=== PATIENT | male | born 1955 | race Caucasian/White ===

== ENCOUNTER 2023-07-31 01:42 | Day surgery (SDC) | payer MEDICARE, SELFPAY ==
[2023-07-08 15:32] VITALS: BMI 24.2
--- NOTE | 2023-07-29 11:11 | PC.NURSE ---
Patient called regarding upcoming procedure. Reviewed preop instructions, appointment times, and procedure prep.
[2023-07-31 08:48] VITALS: BP 148/83; PULSE 80; RESP 16; TEMP 36.2; O2SAT 100; BMI 22.3
--- NOTE | 2023-07-31 09:00 | WPDANESEPPF ---
Anes - Initial Pre Proc Eval Procedure: Operation Date: 07/31/23 10:00 Proposed Procedures p Colonoscopy - Doe Lane MD Date/Time: 07/31/23 09:00 Surgeon: Doe Lane MD Pre Op Diagnosis: hx colon polyps Patient Data Age: 68 Gender: M Height: 1.73 m Weight: 66.6 kg Last Vital Signs Temp 36.2 C L 07/31/23 08:48 Pulse 80 07/31/23 08:48 Resp 16 07/31/23 08:48 BP 148/83 H 07/31/23 08:48 Pulse Ox 100 07/31/23 08:48 O2 Del Method Room Air 07/31/23 08:48 Allergies Allergy/AdvReac Type Severity Reaction Status Date / Time No Known Allergies Allergy Verified 07/31/23 08:56 Home Medications Medication Instructions Recorded Confirmed Type amlodipine 2.5 mg tablet 2.5 mg PO DAILY 06/19/23 07/31/23 History aspirin 81 mg tablet,delayed 81 mg PO DAILY 06/19/23 07/31/23 History release (Adult Aspirin Regimen) insulin aspart U-100 100 unit/mL 3 unit subcut .COMPLEX 06/19/23 07/31/23 History (3 mL) subcutaneous pen (Novolog FlexPen U-100 Insulin aspart) insulin glargine 100 unit/mL (3 See Rx Instructions subcut .COMPLEX 06/19/23 07/31/23 History mL) subcutaneous pen (Lantus Solostar U-100 Insulin) lisinopril 20 mg tablet 20 mg PO DAILY 06/19/23 07/31/23 History meloxicam 7.5 mg tablet 7.5 mg PO DAILY 06/19/23 07/31/23 History metformin 1,000 mg tablet 1,000 mg PO BID 06/19/23 07/31/23 History simvastatin 10 mg tablet 10 mg PO DAILY 06/19/23 07/31/23 History amlodipine 2.5 mg tablet 2.5 mg PO DAILY 07/08/23 07/31/23 History Patient hx anesthesia problems: none Family hx anesthesia problems: none Results Review: All pre-operative results and documents have been reviewed as part of the pre-operative evaluation. [facility] Past Medical History Medical History (Updated 07/31/23 @ 09:02 by Miki Kothari MD) Diabetes HTN (hypertension) Family History Family History Father Diabetes mellitus Hypertension Mother Cancer Thyroid condition Social History Social History Smoking status: Former smoker Tobacco type: cigarettes Smokeless tobacco user: chewing tobacco Second hand tobacco smoke exposure: No Alcohol intake: former Substance use: never Substance use type: does not use Do You Feel Safe in your Home?: Yes Lack of Transportation: No Lack of Food: Never True Current Housing: I Have Housing Concerned About Future Housing: No Difficulty Paying Gas/Electric Bills: No Difficulty Paying for Meds: YES Currently Unemployed: No Education: Associate Degree Difficulty w/ Childcare or Family Care: No Living arrangements: alone Spiritual care concerns: No Anes - Eval Final PreProcedure Day of Procedure 07/31/23 09:00 Patient weight: normal Heart: regular rate and rhythm Lungs: clear to auscultation Airway: Mallampati scale class II and special considerations poor dentition Neurological: alert and oriented Last oral intake: >/= 8 hours ASA classification: III Emergent: no Anesthetic plan: proceed Anesthesia type and monitoring: general GIVS and standard monitoring Results Review: All pre-operative results and documents have been reviewed as part of the pre-operative evaluation. Informed Consent: The patient's anesthetic plan and its attendant risks and benefits were discussed with the patient/family/POA. Questions were solicited and answers provided to the satisfaction of the patient/family/POA.
[2023-07-31] MEDS: LACTATED RINGERS 1,000 ML 150 ML IV CONT (09:11)
[2023-07-31 09:13] LABS: Glucose Point of Care 234 mg/dl (65-105)
--- NOTE | 2023-07-31 10:06 | PM.HPGS ---
History of Present Illness History of Present Illness Consent: Risks, benefits, and alternatives have been discussed and questions answered. Patient agrees to proceed with procedure. Chief complaint: hx colon polyps Narrative: Fabio Juares is a 68 year old male with colon polyp 3 years ago Review of Systems Constitutional: Constitutional: Denies headache(s) and Denies weakness Eyes: Eyes: Denies blurry vision ENT: Reports Normal hearing present, Denies headache(s) and Denies neck pain Cardiovascular: Cardiovascular: Denies chest pain and Denies dyspnea Respiratory: Respiratory: Denies dyspnea Gastrointestinal: Gastrointestinal: Reports no additional gastrointestinal complaints Genitourinary: Genitourinary: Denies dysuria Musculoskeletal: Musculoskeletal: Denies neck pain Integumentary/Breasts: Skin/Breast: Denies dry skin Neurologic: Reports Normal hearing present, Denies headache(s) and Denies weakness Psychiatric: Psychiatric: Denies anxiety Endocrine: Endocrine: Denies change in body appearance Hematologic/Lymphatic: Hematologic/Lymphatic: Denies easy bleeding Allergic/Immunologic: Allergic/Immunologic: Denies urticaria PMFSH Past Medical History Medical History (Updated 07/31/23 @ 09:02 by Miki Kothari MD) Diabetes HTN (hypertension) Family History Family History Father Diabetes mellitus Hypertension Mother Cancer Thyroid condition Social History Social History Smoking status: Former smoker Tobacco type: cigarettes Smokeless tobacco user: chewing tobacco Second hand tobacco smoke exposure: No Alcohol intake: former Substance use: never Substance use type: does not use Do You Feel Safe in your Home?: Yes Lack of Transportation: No Lack of Food: Never True Current Housing: I Have Housing Concerned About Future Housing: No Difficulty Paying Gas/Electric Bills: No Difficulty Paying for Meds: YES Currently Unemployed: No Education: Associate Degree Difficulty w/ Childcare or Family Care: No Living arrangements: alone Spiritual care concerns: No Meds Home Medications and Allergies Home Medications Medication Instructions Recorded Confirmed Type amlodipine 2.5 mg tablet 2.5 mg PO DAILY 06/19/23 07/31/23 History aspirin 81 mg tablet,delayed 81 mg PO DAILY 06/19/23 07/31/23 History release (Adult Aspirin Regimen) insulin aspart U-100 100 unit/mL 3 unit subcut .COMPLEX 06/19/23 07/31/23 History (3 mL) subcutaneous pen (Novolog FlexPen U-100 Insulin aspart) insulin glargine 100 unit/mL (3 See Rx Instructions subcut .COMPLEX 06/19/23 07/31/23 History mL) subcutaneous pen (Lantus Solostar U-100 Insulin) lisinopril 20 mg tablet 20 mg PO DAILY 06/19/23 07/31/23 History meloxicam 7.5 mg tablet 7.5 mg PO DAILY 06/19/23 07/31/23 History metformin 1,000 mg tablet 1,000 mg PO BID 06/19/23 07/31/23 History simvastatin 10 mg tablet 10 mg PO DAILY 06/19/23 07/31/23 History amlodipine 2.5 mg tablet 2.5 mg PO DAILY 07/08/23 07/31/23 History Allergies Allergy/AdvReac Type Severity Reaction Status Date / Time No Known Allergies Allergy Verified 07/31/23 08:56 Vital Signs Vital Signs - 24 hr 07/31/23 08:48 Temperature 97.1 F L Pulse Rate 80 Respiratory Rate 16 Blood Pressure 148/83 H Pulse Oximetry 100 Oxygen Delivery Room Air Exam Const: General: comfortable and no acute distress HENMT: Face/Nose/Sinus: Normal nares present Eyes: General: appearance normal, both eyes and all related structures Neck: Neck: no JVD Resp: Auscultation: clear to auscultation bilaterally Cardio: Rate: regular rate Rhythm: regular rhythm GI: Inspection: non-distended GI Palp: Yes Soft to palpation Skin: General skin exam: normal color Neuro: General: gait normal Speech: normal speech Extrem: General: marcela
[2023-07-31 10:24] VITALS: BP 132/78; PULSE 72; RESP 18; O2SAT 100
[2023-07-31 10:34] VITALS: BP 123/77; PULSE 73; RESP 15; O2SAT 98
[2023-07-31 10:44] VITALS: BP 134/77; PULSE 72; RESP 18; O2SAT 97
[2023-07-31 10:54] LABS: Glucose Point of Care 222 mg/dl (65-105)
== END 2023-07-31 11:00 | disposition home or self-care (01) ==
PROVIDERS: PCP Emergency Medicine; Visit Provider Internal Medicine Gastroenterology
PROC: 0DJD8ZZ Inspection of Lower Intestinal Tract, Via Natural or Artificial Opening Endoscopic (ICD-10-PCS; CPT 45378; principal; 2023-07-31 10:00)
DX: Z12.11 Encounter for screening for malignant neoplasm of colon (principal); D12.3 Benign neoplasm of transverse colon; E11.9 Type 2 diabetes mellitus without complications; I10 Essential (primary) hypertension; Z87.891 Personal history of nicotine dependence
CPT/HCPCS: 45385; 82948; 88305; J2704; J7120

== ENCOUNTER 2023-08-01 08:45 | Outpatient (CLI) | payer MEDICARE, SELFPAY ==
[2023-08-01 12:39] LABS: Alanine Aminotransferase 130 U/L (6-50); Alkaline Phosphatase 83 U/L (38-126); Anion Gap 8 mmol/L (8-16); Aspartate Amino Transferase 92 U/L (17-59); Bilirubin,Total 0.4 mg/dL (0.2-1.3); Blood Urea Nitrogen 7 mg/dL (9-20); Calcium 9.2 mg/dL (8.4-10.2); Carbon Dioxide 30 mmol/L (22-30); Chloride 97 mmol/L (98-107); Cholesterol 119 mg/dL (0-200); Estimated Glomerular Filt Rate > 60; Glucose 296 mg/dL (65-110); HDL Direct 38 mg/dL; Potassium 4.5 mmol/L (3.4-5.0); Sodium 135 mmol/L (137-145); Triglycerides 142 mg/dL (<150)
[2023-08-01 12:52] LABS: LDL Cholesterol Direct 71 mg/dL
[2023-08-01 13:08] LABS: Prostate Specific Antigen 0.5 ng/mL (< OR = 4.0)
[2023-08-01 13:22] LABS: Creatinine Urine 25.4 mg/dL
[2023-08-01 13:23] LABS: Hemoglobin A1C 10.5 % (<5.7)
[2023-08-01 14:09] LABS: MALB Creatinine Ratio 778.7 mg/g (0-30); Microalbumin Urine Random 197.8 mg/L (0-16.7)
== END 2023-08-01 08:46 | disposition home or self-care (01) ==
LOC: ANHGOSHLAB 08:46
PROVIDERS: PCP Emergency Medicine; Visit Provider Emergency Medicine
DX: E11.40 Type 2 diabetes mellitus with diabetic neuropathy, unspecified (principal); Z79.4 Long term (current) use of insulin; Z12.5 Encounter for screening for malignant neoplasm of prostate
CPT/HCPCS: 36415; 80053; 80061; 82043; 83036; 84153; G0103

== ENCOUNTER 2023-10-31 09:15 | Outpatient (RCR) | payer MEDICARE, SELFPAY | END 2023-11-19 14:10 | disposition home or self-care (01) | LOC: ANHDMC 09:15 | PROVIDERS: PCP Emergency Medicine; Visit Provider Emergency Medicine | DX: E11.40 Type 2 diabetes mellitus with diabetic neuropathy, unspecified (principal); Z79.4 Long term (current) use of insulin; Z71.89 Other specified counseling | CPT/HCPCS: G0108 ==

== ENCOUNTER 2023-10-31 10:50 | Outpatient (CLI) | payer MEDICARE, SELFPAY ==
[2023-10-31 13:55] LABS: Alanine Aminotransferase 113 U/L (6-50); Albumin Level 4.3 g/dL (3.5-5.1); Alkaline Phosphatase 65 U/L (38-126); Anion Gap 7 mmol/L (4-12); Aspartate Amino Transferase 75 U/L (17-59); Bilirubin,Total 0.4 mg/dL (0.2-1.3); Blood Urea Nitrogen 13 mg/dL (9-20); Calcium 9.3 mg/dL (8.4-10.2); Carbon Dioxide 29 mmol/L (22-30); Chloride 100 mmol/L (98-107); Estimated Glomerular Filt Rate > 60; Glucose 168 mg/dL (65-110); Potassium 4.2 mmol/L (3.4-5.0); Sodium 136 mmol/L (137-145)
[2023-10-31 21:13] LABS: Hemoglobin A1C 7.9 % (<5.7)
== END 2023-10-31 10:51 | disposition home or self-care (01) ==
PROVIDERS: PCP Emergency Medicine; Visit Provider Emergency Medicine
DX: E11.40 Type 2 diabetes mellitus with diabetic neuropathy, unspecified (principal); Z79.4 Long term (current) use of insulin; Z79.899 Other long term (current) drug therapy
CPT/HCPCS: 36415; 80053; 82607; 83036

== ENCOUNTER 2023-12-10 09:54 | Outpatient (RCR) | payer MEDICARE, SELFPAY | END 2024-03-02 10:21 | disposition home or self-care (01) | LOC: ANHDMC 09:54 | PROVIDERS: PCP Emergency Medicine; Visit Provider Emergency Medicine | DX: E11.40 Type 2 diabetes mellitus with diabetic neuropathy, unspecified (principal); Z79.4 Long term (current) use of insulin; Z71.89 Other specified counseling | CPT/HCPCS: G0108 ==

== ENCOUNTER 2024-03-30 09:26 | Outpatient (CLI) | payer MEDICARE, SELFPAY ==
[2024-03-30 15:30] LABS: Hemoglobin A1C 10.5 % (<5.7)
[2024-03-30 15:31] LABS: Hepatitis C Virus Antibody Negative (Negative)
[2024-04-01 02:18] LABS: Hepatitis A Antibody Total NON-REACTIVE (NON-REACTIVE)
== END 2024-03-30 09:27 | disposition home or self-care (01) ==
PROVIDERS: PCP Emergency Medicine; Visit Provider Nurse Practitioner Family
DX: E11.21 Type 2 diabetes mellitus with diabetic nephropathy (principal); Z79.4 Long term (current) use of insulin; R74.8 Abnormal levels of other serum enzymes; Z86.19 Personal history of other infectious and parasitic diseases
CPT/HCPCS: 36415; 83036; 86708; 86803

== ENCOUNTER 2024-03-30 09:36 | Outpatient (CLI) | payer MEDICARE, SELFPAY ==
--- NOTE | ~2024-03-30 | XR_ITS ---
Left Shoulder Technique: AP and scapular Y views were obtained. Clinical History: Pain Findings: No fracture or dislocation is seen. Osseous alignment is anatomic. The glenohumeral joint i s intact. There is mild AC joint degenerative change. Soft tissues are unremarkable. Impression: Mild AC joint degenerative change. Reviewed, dictated and finalized at location . Impression: Mild AC joint degenerative change.
== END 2024-03-30 09:37 | disposition home or self-care (01) ==
PROVIDERS: PCP Emergency Medicine; Visit Provider Nurse Practitioner Family
DX: M19.012 Primary osteoarthritis, left shoulder (principal)
CPT/HCPCS: 73030

== ENCOUNTER 2024-06-10 10:10 | Outpatient (CLI) | payer MEDICARE, SELFPAY ==
[2024-06-10 12:40] LABS: Basophils Absolute Auto 0.1 K/mm3 (0.0-0.1); Basophils Percent Auto 0.8 % (0.2-1.2); Eosinophils Absolute Auto 0.1 K/mm3 (0-0.3); Hematocrit 42.8 % (42.0-52.0); Hemoglobin 13.9 g/dL (14.0-18.0); Immature Granulocyte Absolute 0.07 K/mm3 (0.00-0.031); Immature Granulocyte Percent A 0.9 % (0-0.5); Lymphocytes Absolute Auto 1.52 K/mm3 (0.9-3.2); Lymphocytes Percent Auto 19.6 % (18.3-44.2); Mean Corpuscular HGB Conc 32.5 g/dl (32-36); Mean Corpuscular Volume 83.3 fl (80-100); Mean Platelet Volume 10.8 fl (7.4-10.4); Monocytes Absolute Auto 0.5 K/mm3 (0.1-0.6); Neutrophils Absolute Auto 5.5 K/mm3 (1.3-6.7); Neutrophils Percent Auto 70.7 % (45.5-73.1); Platelet Count Result 234 k/mm3 (150-375); Red Blood Count 5.14 M/mm3 (4.6-6.20); Red Cell Distribution Width 13.3 % (11.5-14.5); White Blood Count 7.7 K/mm3 (4.5-10.0)
[2024-06-10 13:20] LABS: Alanine Aminotransferase 227 U/L (6-50); Albumin Level 4.2 g/dL (3.5-5.1); Alkaline Phosphatase 82 U/L (38-126); Anion Gap 8 mmol/L (4-12); Aspartate Amino Transferase 191 U/L (17-59); Bilirubin,Total 0.6 mg/dL (0.2-1.3); Blood Urea Nitrogen 10 mg/dL (9-20); Calcium 9.6 mg/dL (8.4-10.2); Carbon Dioxide 30 mmol/L (22-30); Chloride 99 mmol/L (98-107); Cholesterol 123 mg/dL (0-200); Estimated Glomerular Filt Rate > 60; Glucose 155 mg/dL (65-110); HDL Direct 42 mg/dL; Potassium 5.1 mmol/L (3.4-5.0); Sodium 137 mmol/L (137-145); Triglycerides 109 mg/dL (<150)
[2024-06-10 13:32] LABS: LDL Cholesterol Direct 54 mg/dL
== END 2024-06-10 10:11 | disposition home or self-care (01) ==
LOC: ANHGOSHLAB 10:11
PROVIDERS: PCP Emergency Medicine; Visit Provider Nurse Practitioner Family
DX: R74.8 Abnormal levels of other serum enzymes (principal); E11.9 Type 2 diabetes mellitus without complications; I10 Essential (primary) hypertension
CPT/HCPCS: 36415; 80053; 80061; 85025

== ENCOUNTER 2024-09-07 10:23 | Outpatient (CLI) | payer MEDICARE, SELFPAY ==
--- OUTSIDE RECORDS SUMMARY | 2024-09-07 11:52 | XMS_ITS ---
Author Organization 1 OF Nettie perera [facility] Address [address] [place] [address] Care Team Providers Care Traffic Warehouse Supervisor Name Role Phone Damian Tilley Primary Care Provider Cindy Quinteros Unavailable [phone] REASON FOR VISIT DFC (Diabetic foot care) Encounters Encounter Location Date Provider Diagnosis 1 OF Nettie Baker [facility] [address] [place] [address] 07/08/2023 Cindy Barrera Callus of foot L84 ; Type 2 diabetes mellitus with other diabetic neurological complication E11.49 and Onychogryphosis L60.2 Assessments Encounter Date Diagnosis (ICD Code) Assessment Notes Treatment Notes Treatment Clinical Notes Section Notes 07/08/2023 Callus of foot (ICD-10 - L84) 07/08/2023 Type 2 diabetes mellitus with other diabetic neurological complication (ICD-10 - E11.49) Considering the associated comorbidities and physical exam findings today, this patient is at substantial risk of developing serious foot complications in the absence of regular and professional palliative foot care. He was advised to routinely moisturize the skin. 07/08/2023 Onychogryphosis (ICD-10 - L60.2) Plan Of Treatment Treatment Notes Assessment Notes Type 2 diabetes mellitus wit h other diabetic neurological complication Considering the associated comorbidities and physical exam findings today, this patient is at substantial risk of developing serious foot complications in the absence of regular and professional palliative foot care. He was advised to routinely moisturize the skin. Next Appt Details Follow Up: 10 weeks,prn, [place] son: Procedure Notes * Category Sub-Category Detail Notes PALLIATIVE FOOT CARE: Callus paring: (08133) Le ss than five calluses as noted above reduced with a sterile scalpel blade Nail debride (17674): Debridement of at least six mycotic and/or hypertrophic nails performed:, utilizing manual and electric debridement the affected nails were reduced the nails in length and thickness with curettage of debris from nail margins performed as needed. Nail thickness reduced by:, 25% Progress Notes * Fabio JUARES RDOB: 4 (69 yo M)Acc No.[id number]:07/08/2023 Progress Note Patient: Fabio BURGOS Provider: Darwin Barrera DPM :1955 A ge:68 Y S ex:Male Date:07/08/2023 Address:[address] [place] [address], [address] Pcp:Damian Tilley Subjective: * Chief Complaints: * 1 . DFC (Diabetic foot care). * HPI: Kalie Birmingham assisting with visit:: HPI/Rooming: . ..... P [facility] reason for visit:: Diabetic Foot Care: [age] year old diabetic male RTO for diabetic foot care. P atient reports no acute issues with calluses today. R eport last hA1C of . * Medical History: Objective: * Vitals: * Examination: G eneral Examination: Constitutional / Appearance: N o acute distress , Well nourished, Appropriate personal hygiene. Mental status: C ooperative, Oriented to person, place and time, Mood and affect: normal, Judgement and intellect: normal with appropriate response to questions. Shoes today: X XXXXX. L ower Extremity VASCULAR: : Pulses: R ight: DP and PT diminished; L eft: DP and PT non-palpable. Temperature gradient: decreased from proximal to distal, bilateral. Pedal hair: a bsent, bilateral. Venous insufficiency edema: mild, bilateral feet. Capillary refill at distal toes l ess than 5 seconds, bilateral. L ower Extremity DERM: : Skin: d ry , atrophic , no open sores , no suspicious lesions , bilateral. Continued dry scaly skin noted to the plantar aspects of both feet.. Nails: N ail plates of: TA-T9, except T5, T6 are elongated, thickened, dystrophic , discolored , with subungual debris.No signs of infection noted.. Hyperkeratotic lesions LEFT foot: s ub 5th MTH. Hyperkeratotic lesions RIGHT foot: p lantar medial 1st MPJ. L ower Extremity MSK: : Gait Gait unremarkable with normal posture, propulsion and balance. Muscle strength: d iminished , all 4 quadrants tested , bilateral. Left lower extremity inspection and palpation: N o palpable masses or nodules noted. Slightly decreased ROM noted to the MPJ's.. Right lower extremity inspection and palpation: N o palpable masses or nodules noted. Slightly decreased ROM noted to the MPJ's. Foot deformities: B ilateral:hammertoes, 4-5. L ower Extremity NEURO: : General sensation appears d iminished , bilateral. Muscle tone within normal limits, bilateral. Monofilament test (10 gram pressure) E xam of 07/05/2023:.? Vibration perception: E xam of 07/08/2023:. ? Assessment: * Assessment: 1. C allus of foot - L84 2 . T ype 2 diabetes mellitus with other diabetic neurological complication - E11.49 (Primary) 3 . O nychogryphosis - L60.2 ? Plan: * Treatment: * Procedures: P ALLIATIVE FOOT CARE:: Callus paring: ( [id number]) Less than five calluses as noted above reduced with a sterile scalpel blade. Nail debride (40797): D ebridement of at least six mycotic and/or hypertrophic nails performed:, utilizing manual and electric debridement the affected nails were reduced the nails in length and thickness with curettage of debris from nail margins performed as needed. Nail thickness reduced by:, 25%. * Procedure Codes: 1 1056 TRIM SKIN LESIONS, 2 TO 4, Modifiers: Q8 , 04316 DEBRIDE NAIL, 6 OR MORE, Modifiers: Q8 , 59 * Follow Up: 1 0 weeks,prn * Images: * Electronic signature of Rona Barrera DPM on 09/07/2024 at 11:52 AM CDT Sign off status: Pending * Provider: Darwin Barrera DPM Date: 0 07/08/2023 Generated for Jose woody/Rakesh/Carolee on: 0 09/07/2024 11:52 AM CDT History and Physical Notes * HPI (History of Present Illness) Category Sub-Category Detail Notes Category Not es Primary reason for visit: Diabetic Foot Care: 68 year old diabetic male RTO for diabetic foot care. Patient reports no acute issues with calluses today. Report last hA1C of MA assisting with visit: HPI/Rooming: ..... Examination Category Sub-Category Detail Notes Category Not es General Examination Mental status: Cooperative, Oriented to person, place and time, Mood and affect: normal, Judgement and intellect: normal with appropriate response to questions Shoes today: XXXXXX Constitutional / Appearance: No acute di stress , Well nourished, Appropriate personal hygiene Lower Extremity VASCULAR: Venous insufficiency edema: mild, bilateral feet Pulses: Right: DP and PT dim inished; Left: DP and PT non-palpable Temperature gradient: decreased from pro ximal to distal, bilateral Pedal hair: absent, bilateral Capillary refill at distal toes less juanjo n 5 seconds, bilateral Lower Extremity NEURO: Monofilament test (10 gra m pressure) Exam of 07/05/2023: Vibration perception: Exam of 07/08/2023 : General sensation appears diminished , b ilateral Muscle tone within normal limits , bilateral Lower Extremity MSK: Muscle strength: diminished , all 4 quadrants tested , bilateral Foot deformities: Bilateral: hammertoe s, 4-5 Left lower extremity inspect ion and palpation: No palpable masses or nodules noted. Sli ghtly decreased ROM noted to the MPJ's. Right lower extremity inspec tion and palpation: No palpable masses or nodules noted. Sli ghtly decreased ROM noted to the MPJ's Gait Gait unremarkable wi th normal posture, propulsion and balance Lower Extremity DERM: Skin: dry , atro phic , no open sores , no suspicious lesions , bilateral. Continued dry scaly skin noted to the plantar aspects of both feet. Nails: Nail plates of: TA-T 9, except T5, T6 are elongated, thickened, dystrophic , discolored , with subungual debris.No signs of infection noted. Hyperkeratotic lesions LEFT foot: sub 5t h MTH Hyperkeratotic lesions RIGHT foot: plant ar medial 1st MPJ
--- OUTSIDE RECORDS SUMMARY | 2024-09-07 11:52 | XMS_ITS ---
Author Organization 1 OF Nettie perera [facility] Address [address] [facility] [address] [place] [address] Care Team Providers Care Tool Crib Lead Name Role Phone Damian Tilley Primary Care Provider Cindy Quinteros Unavailable [phone] Allergies No Known Allergies REASON FOR VISIT DFC (Diabetic foot care) Medications Medication SIG (Take, Route, Fr equency, Duration) Notes Start Date End Date Status Simvastatin Active Lisinopril Active metFORMIN HCl Active amLODIPine Besylate Active Ketoconazole 2 % 1 application to aff ected area on bottom of feet Topical Once a day for 60 days 09/24/2022 Active Aspirin Active Vital Signs Height 68 in 04/29/2023 Weight 157 lbs 04/29/2023 BMI 23.87 kg/m2 04/29/2023 Encounters Encounter Location Date Provider Diagnosis 1 OF Nettie Baker [facility] [address] [facility] [address] [place] [address] 04/29/2023 Cindy Barrera Callus of foot L84 ; Type 2 diabetes mellitus with other diabetic neurological complication E11.49 and Onychogryphosis L60.2 Assessments Encounter Date Diagnosis (ICD Code) Assessment Notes Treatment Notes Treatment Clinical Notes Section Notes 04/29/2023 Callus of foot (ICD-10 - L84) 04/29/2023 Type 2 diabetes mellitus with other diabetic neurological complication (ICD-10 - E11.49) Considering the associated comorbidities and physical exam findings today, this patient is at substantial risk of developing serious foot complications in the absence of regular and professional palliative foot care. He was advised to routinely moisturize the skin. 04/29/2023 Onychogryphosis (ICD-10 - L60.2) Plan Of Treatment [...] Next Appt Details Follow Up: 10 weeks,prn, [place] son: Procedure Notes * Category Sub-Category Detail Notes PALLIATIVE FOOT CARE: Callus paring: (91175) Le ss than five calluses as noted above reduced with a sterile scalpel blade Nail debride (26255): Debridement of at least six mycotic and/or hypertrophic nails performed:, utilizing manual and electric debridement the affected nails were reduced the nails in length and thickness with curettage of debris from nail margins performed as needed. Nail thickness reduced by:, 25% Progress Notes * Fabio JUARES RDOB: 4 (68 yo M)Acc No.[id number]:04/29/2023 Progress Note Patient: Kalie CORONANATASHAFabio Provider: Darwin Barrera DPM :1955 A ge:67 Y S ex:Male Date:04/29/2023 Address:[address] [place], [place] [id number] Pcp:Damian Tilley Subjective: * Chief Complaints: * D FC (Diabetic foot care) * HPI: Kalie Birmingham assisting with visit:: HPI/Rooming: Vanessa alfred. Cristy ochoa reason for visit:: Diabetic Foot Care: 5 8 year old diabetic male RTO for diabetic foot care. P atient reports no acute issues with calluses today, but he does reports that the first 3 nails on the RT foot were partially ripped off by his new house shoes that he has since stopped wearing, he does admit that the nails bled initially. He denies any drainage from them now and states they are healed. R eport last hA1C of unknown. 2 nd concern today:: Follow up Visit P t also RTO for f/u of B/L tinea pedis. At last visit pt advised to continue using antifungal cream and can also use moisturizing cream on skin and alternate it with antifungal cream. Today pt reports after awhile, he doesn't think the cream did any good.He states he has been dealing with this issue for many, many years.. * ROS: * MULTI-SYSTEM REVIEW:: Nausea, fever or chillls d enies. C urrently dealing with infection, flu or open wound: d enies. A ny change in medications since last visit? d enies. A ny changes in medical history/hospitalizations? d enies. * Medical History: * Surgical History: C ataract surgery B/L 01/2023 * Hospitalization/Major Diagno stic Procedure: * Medications: T akingLisinopril Simvastatin amLODIPine Besylate metFORMIN HCl Aspirin Ketoconazole 2 % Cream 1 application to affected area on bottom of feet Topical Once a day Medication List reviewed and reconciled with the patientTaking Lisinopril Taking Simvastatin Taking amLODIPine Besylate Taking metFORMIN HCl Taking Aspirin Taking Ketoconazole 2 % Cream 1 application to affected area on bottom of feet Topical Once a day Medication List reviewed and reconciled with the patient * Allergies: N .K.D.A.no[Allergies Verified] Objective: * Vitals: W t:157lbs, Wt-k.21 kg, Ht: 68 in, BMI:23.87Index. * Examination: G eneral Examination: Constitutional / Appearance: N o acute distress , Well nourished, Appropriate personal hygiene. Mental status: C ooperative, Oriented to person, place and time, Mood and affect: normal, Judgement and intellect: normal with appropriate response to questions. Shoes today: D iabetic shoes w/ diabetic inserts. ? L ower Extremity VASCULAR: : Pulses: R [...] test (10 gram pressure) E xam of 09/24/2022:?revealed absent sensation to at least two distinct locations of , forefoot , bilateral. Vibration perception: E xam of 09/24/2022: n oted intact per evaluation with 128Hz tuning fork applied to distal hallux compared to ipsilateral medial malleolus @ bilateral feet . Assessment: * Assessment: 1. C allus of foot - L84 2 . T ype 2 diabetes mellitus with other diabetic neurological complication - E11.49 (Primary) 3 . O nychogryphosis - L60.2 Plan: * Treatment: * Procedures: P ALLIATIVE FOOT CARE:: Callus paring: ( 20363) Less than five calluses as noted above reduced with a sterile scalpel blade. Nail debride (62570): D ebridement of at least six mycotic and/or hypertrophic nails performed:, utilizing manual and electric debridement the affected nails were reduced the nails in length and thickness with curettage of debris from nail margins performed as needed. Nail thickness reduced by:, 25%. * Procedure Codes: 1 1056 TRIM SKIN LESIONS, 2 TO 4, Modifiers: Q8 34516 DEBRIDE NAIL, 6 OR MORE, Modifiers: Q8 , 59 * Preventive Medicine: Screenings: F ALL RISK SCREENING Fall Risk Assessment: N o falls in the past year * Follow Up: 1 0 weeks,prn * Images: * INE VENEER REPAIRER Sign off status: Completed true * Provider: Darwin Barrera DPM Date: 06/29/2022 Generated for Jose woody/Rakesh/Sorenitting on: 0 09/07/2024 11:52 AM CDT History and Physical Notes * HPI (History of Present Illness) Category Sub-Category Detail Notes Category Not es Primary reason for visit: Diabetic Foot Care: 67 year old diabetic male RT O for diabetic foot care. Patient reports no acute issues with calluses today, but he does reports that the first 3 nails on the RT foot were partially ripped off by his new house shoes that he has since stopped wearing, he does admit that the nails bled initially. He denies any drainage from them now and states they are healed.Report last hA1C of unknown 2nd concern today: Follow up Visit Pt also RTO f or f/u of B/L tinea pedis. At last visit pt advised to continue using antifungal cream and can also use moisturizing cream on skin and alternate it with antifungal cream. Today pt reports after awhile, he doesn't think the cream did any good.He states he has been dealing with this issue for many, many years. MA assisting with visit: HPI/Rooming: Thu Examination Category Sub-Category Detail Notes Category Not es General Examination Mental status: Cooperative, Oriented to person, place and time, Mood and affect: normal, Judgement and intellect: normal with appropriate response to questions Shoes today: Diabetic shoes w/ di abetic inserts Constitutional / Appearance: No acute di stress [...] bilateral Lower Extremity NEURO: Monofilament test (10 gram pressure) Exam of 09/24/2022: revealed absent sensation to at least two distinct locations of , forefoot , bilateral Vibration perception: Exam of 09/24/2022: noted intact per evaluation with 128Hz tuning fork applied to distal hallux compared to ipsilateral medial malleolus @ bilateral feet General sensation appears diminished , b ilateral [...]
--- OUTSIDE RECORDS SUMMARY | 2024-09-07 11:52 | XMS_ITS | Patient Health Record ---
Author Organization 1 OF Nettie perera [facility] Address [address] [place] [address] Care Team Providers Care Architect Internship Name Role Phone Damian Tilley Primary Care Provider Cindy Quinteros Unavailable [phone] Allergies No Known Allergies Reason For Referral No Information Medications Medication SIG (Take, Route, Fr equency, Duration) Notes Start Date End Date Status Simvastatin Active Lisinopril Active metFORMIN HCl Active amLODIPine Besylate Active Ketoconazole 2 % 1 application to aff ected area on bottom of feet Topical Once a day for 60 days 09/24/2022 Active Aspirin Active Social History Tobacco Use: Social History Observation Description Date Details (start date - stop date) Never Smoker NA - NA Tobacco Use/Smoking Question Answer Notes Are you a nonsmoker Problems Problem Type SNOMED Code ICD Code Onset Dates Problem Status W/U Status Risk Notes Problem [id number] Type 2 diabetes mellitus with other diabetic neurological complication (E11.49) Active confirmed Plan Of Treatment No Information Insurance Providers Payer Name Payer Address Payer Phone Subscriber Number Group Number Insured Name Patient Relationship to Insured Coverage Start Date Coverage End Date Medicare [address] [facility] [place] [id number] Fabio Juares Self - patient is the insured Medical (General) History Medical History History ICD Code diabetes, , Hypertension, high cholester ol, cataracts Surgical History Surgery Date(Month/Year) Cataract surgery B/L 01/2023
--- OUTSIDE RECORDS SUMMARY | 2024-09-07 11:52 | XMS_ITS | Clinical Summary ---
Author Organization [facility] Address [address] [place] [address] Care Team Providers Care Track Greaser Name Role Phone Alcides Ramirez MD Primary Care Provider [phone] Allergies No known active allergies Medications traMADol (ULTRAM) 50 MG tabletIndication s:Acute Pain < 3 Day Supply Take 1 tablet (50 mg total) by mouth every 6 (six) hours as needed. Indications : Acute Pain < 3 Day Supply 12 tablet 01/19/2022 Active Social History Tobacco Use Types Packs/Day Years Used Date Smoking Tobacco: Never Smokeless Tobacco: Current Alcohol Use Standard Drinks/Week Comments Yes 0 (1 standard drink = 0.6 oz pur e alcohol) socially Sex and Gender Information Value Date Recorded Sex Assigned at Not on file Legal Sex Male 7:26 PM CDT Gender Identity Not on file Sexual Orientation Not on file Last Filed Vital Signs Vital Sign Reading Time Taken Comments Blood Pressure 150/74 01/19/2022 5:11 PM CDT Pulse 80 01/19/2022 5:11 PM CDT Temperature 36.4 C (97.6 F) 01/19/2022 12:35 PM CDT Respiratory Rate 16 01/19/2022 5:11 PM CDT Oxygen Saturation 98% 01/19/2022 5:11 PM CDT Inhaled Oxygen Concentration - - Weight 74.8 kg (165 lb) 01/19/2022 12:35 PM CDT Height 172.7 cm (5' 8 ) 01/19/2022 12:35 PM CDT Body Mass Index 25.09 01/19/2022 12:35 PM CDT Plan of Treatment Health Maintenance Due Date Last Done Comments Colorectal Cancer Screening Colonoscopy (10 Years) 1954 Hepatitis C 1972 DTaP, Tdap and Td Vaccines ( 1 - Tdap) 1973 Zoster Vaccines (1 of 2) 2004 Annual Medicare Wellness Visit 2019 Pneumococcal Vaccine: 65+ Years (1 of 1 - PCV) 2019 COVID-19 Vaccine (3 - 2023-2 5 season) 2024 09/16/2020, 08/19/2020 RSV Immunization or 60+ Years (1 - 1-dose 75+ series) 2029 Meningococcal B Vaccine Aged Out No l onger eligible based on patient's age to complete this topic Meningococcal Vaccine Aged Out No kiera ivis eligible based on patient's age to complete this topic RSV Immunizations Under 20 Months Aged Out No longer eligible b ased on patient's age to complete this topic Additional Health Concerns Infection Onset Date Last 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
--- OUTSIDE RECORDS SUMMARY | 2024-09-07 11:52 | XMS_ITS | Referral Summary ---
Author Organization [facility] Address [address] [place] [address] Care Team Providers Care Graphic Design Assistant Name Role Phone No, Physician Primary Care Provider [phone] Miscellaneous, Not In File Unavailable Unava ilable Allergies No known active allergies Medications metFORMIN (GLUCOPHAGE) 1,000 mg tablet Take 1 tablet (1,000 mg total) by mouth 2 (two) times a day with meals Active amLODIPine (NORVASC) 2.5 mg tablet Take 1 tablet (2.5 mg total) by mouth daily 05/14/2022 Active lisinopriL (PRINIVIL,ZESTR IL) 10 mg tablet Take 1 tablet (10 mg total) by mouth daily 05/14/2022 Active simvastatin (ZOCOR) 10 mg tablet Take 1 tablet (10 mg total) by mouth daily 05/14/2022 Active insulin glargine 100 unit/mL (3 mL) pen for injection Inject 30 Units under the skin 2 (two) times a day 18 mL 07/09/2022 Active pen needle, diabetic 32 gauge x 5/32 needle Use as directed twice a day 100 each 07/09/2022 Active lancets misc Use as directed up to 4 times a day. 100 each 1 07/09/2022 Active Active Problems Problem Noted Date Diagnosed Date Type 2 diabetes mellitus wit h hyperglycemia, with long-term current use of insulin 07/09/2022 Essential hypertension 07/09/2022 Transient alteration of awareness 07/09/2022 Generalized weakness Social History Tobacco Use Types Packs/Day Years Used Date Smoking Tobacco: Never Tobacco Cessation:Counseling Given: Not Answered Alcohol Use Standard Drinks/Week Comments Yes 0 (1 standard drink = 0.6 oz pur e alcohol) socially Social Connection and Isolat ion Panel [NHANES] Answer Date Recorded In a typical week, how many times do you talk on the phone with family, friends, or neighbors? More than three times a week 07/09/2022 How often do you get togethe r with friends or relatives? More than three times a week 07/09/2022 How often do you attend chur ch or lutheran services? Never 07/09/2022 Do you belong to any clubs o r organizations such as islam groups, unions, fraternal or athletic groups, or school groups? No 07/09/2022 How often do you attend meet ings of the clubs or organizations you belong to? Never 07/09/2022 Are you , , di vorced, , never , or living with a partner? Never 07/09/2022 Overall Financial Resource Strain (CARDIA) Answe r Date Recorded How hard is it for you to pa y for the very basics like food, housing, medical care, and heating? Not hard at all 07/09/2022 Hunger Vital Sign Answer Date Recorded Within the past 12 months, y ou worried that your food would run out before you got the money to buy more. Never true 07/09/19 23 Within the past 12 months, t he food you bought just didn't last and you didn't have money to get more. Never true 07/09/2022 PRAPARE - Transportation Answer Date Re corded In the past 12 months, has l ack of transportation kept you from medical appointments or from getting medications? No 11/2022 In the past 12 months, has l ack of transportation kept you from meetings, work, or from getting things needed for daily living? No 07/09/2022 Housing Stability Vital Sign Answer Dhruv e Recorded In the last 12 months, was t here a time when you were not able to pay the mortgage or rent on time? No 07/09/2022 Number of Places Lived in the Last Year Not on f ile 07/09/2022 In the last 12 months, was t here a time when you did not have a steady place to sleep or slept in a mcfp (including now)? No 07/09/2022 Sex and Gender Information Value Date Recorded Sex Assigned at Not on file Legal Sex Male 5:00 PM RADAR SCIENTIST Gender Identity Not on file Sexual Orientation Not on file Last Filed Vital Signs Vital Sign Reading Time Taken Comments Blood Pressure 100/60 03/14/2023 3:23 PM CDT Pulse 106 08/23/2022 1:01 PM CDT Temperature 36.2 C (97.1 F) 08/23/2022 1:01 PM CDT Respiratory Rate 18 08/23/2022 1:01 PM CDT Oxygen Saturation 99% 08/23/2022 1:01 PM CDT Inhaled Oxygen Concentration - - Weight 74.8 kg (165 lb) 03/14/2023 3:23 PM CDT Height 172.7 cm (5' 8 ) 03/14/2023 3:23 PM CDT Body Mass Index 25.09 03/14/2023 3:23 PM CDT Plan of Treatment Not on file Procedures Procedure Name Priority Date/Time Associated Diagnosis Comments EGFR Routine 07/09/2022 4:45 AM RADAR SCIENTIST HEMOGLOBIN A1C Routine 07/09/2022 4:45 AM RADAR SCIENTIST LIPID PANEL Routine 07/09/2022 4:[address] ABDOMEN PELVIS WO CONTRAST ED 07/08/2022 2:26 AM RADAR SCIENTIST from Last 3 Months or Most Recently Relevant to Health Maintenance Results * eGFR (07/09/2022 4:45 AM RADAR SCIENTIST) eGFR 100 mL/min/1. 73 m2 LIZZY HERRERA Comment: Interpretive Data Reference Interval Normal >/= 90 mL/min/1.73m2 Mildly decreased* 60 - 89 mL/min/1.73m2 Mildly to moderately decreased 45 - 59 mL/min/1.73m2 Moderately to severely decreased 30 - 44 mL/min/1.73m2 Severely decreased 15 - 29 mL/min/1.73m2 Kidney Failure < 15 mL/min/1.73m2 *Relative to young adult level Estimated glomerular filtration rate is determined by the 2020 CKD-EPI equation recommended by the National Kidney Foundation (A Unifying Approach to GFR Estimation: Recommendations of the NKF-ASK Task Force on Reassessing the Inclusion of Race in Diagnosing Kidney Disease, JASN 2020). The CKD-EPI equation should not be used for patients with unstable renal function and has not been validated in children and those over 70. Current interpretive data was last reviewed 2021. Testing performed by: [address] [address] Blood 07/09/2022 4:45 AM RADAR SCIENTIST 07/09/2022 5:19 AM RADAR SCIENTIST us Moses Ramires MD LAB BLOOD ORDERABLES Final Result Performing Organization Address [facility] Co de Phone Number [place] [phone] [facility] [place] [address] * (ABNORMAL) Hemoglobin A1c (07/09/2022 4:45 AM RADAR SCIENTIST) Hgb A1C 9.3(H) 4.0 - 5.6 % LIZZY Comment:Testing performed by : [address] [address] Estimated Average Glucose 220 mg/dL LIZZY Comment: The ADA recommends reporting an estimated Average Glucose (eAG) with all Hemoglobin A1c results using the equation derived from a study of 507 normal and diabetic adults. Minority populations were underrepresented and children were not included. (Diabetes Care 31:6375-0118, 2008). The eAG is not equivalent to a fasting glucose. Testing performed by: [address] [address] Blood 07/09/2022 4:45 AM RADAR SCIENTIST 07/09/2022 5:19 AM RADAR SCIENTIST us Kendrick Bowling MD LAB BLOOD ORDERABLES Final Resul t Performing Organization Address [facility] Co de Phone Number [facility] [address] [facility] [place] [address] * Lipid panel (07/09/2022 4:45 AM RADAR SCIENTIST) Cholesterol 126 30 - 199 mg/dL LIZZY Comment: Interpretive Data Ages < or = 19 years Acceptable: <170 mg/dL Borderline high: 170-199 mg/dL High: >or= 200 mg/dL Ages > or = 20 years Desirable: <200 mg/dL Borderline high: 200-239 mg/dL High: >or= 240 mg/dL Literature References: 1. Expert Panel on Integrated Guidelines for Cardiovascular Health and Risk Reduction in Children and Adolescents. Pediatrics 2011;128:S213 2. NCEP Expert Panel. Circulation 2004;110:227 Current Interpretive Data was last revised on 2018. Testing performed by: [address] [address] Triglycerides 147 <=149 mg/dL LIZZY Comment: Interpretive Data Ages < or = 9 years Acceptable: <75 mg/dL Borderline high: 75-99 mg/dL High: >or= 100 mg/dL Ages 10 to 20 years Acceptable: <90 mg/dL Borderline high: 90-129 mg/dL High: >or= 130 mg/dL Ages > or = 20 years Desirable: <150 mg/dL Borderline high: 150-199 mg/dL High: 200-499 mg/dL Very high: >or= 499 mg/dL Literature References: 1. Expert Panel on Integrated Guidelines for Cardiovascular Health and Risk Reduction in Children and Adolescents. Pediatrics 2011;128:S213 2. NCEP Expert Panel. Circulation 2004;110:227 Current Interpretive Data was last revised on 2018. Testing performed by: [address] [address] HDL 47 >=40 mg/dL LIZZY Comment: Interpretive Data Ages < or = 19 years Acceptable: >45 mg/dL Borderline low: 40-45 mg/dL Low: <40 mg/dL Ages > or = 20 years Desirable: >or= 60 mg/dL Low: <40 mg/dL Literature References: 1. Expert Panel on Integrated Guidelines for Cardiovascular Health and Risk Reduction in Children and Adolescents. Pediatrics 2011;128:S213 2. NCEP Expert Panel. Circulation 2004;110:227 Current Interpretive Data was last revised on 2018. Testing performed by: [address] [address] LDL, calculated 50 <=129 mg/dL LIZZY Comment: Interpretive Data Ages < or = 19 years Acceptable: <110 mg/dL Borderline high: 110-129 mg/dL High: >or= 130 mg/dL Ages > or = 20 years Optimal: <100 mg/dL Near optimal: 100-129 mg/dL Borderline high: 130-159 mg/dL High: >160 mg/dL Literature References: 1. Expert Panel on Integrated Guidelines for Cardiovascular Health and Risk Reduction in Children and Adolescents. Pediatrics 2011;128:S213 2. NCEP Expert Panel. Circulation 2004;110:227 Current Interpretive Data was last revised on 2018. Testing performed by: [address] [address] Non-HDL Cholesterol 79 mg/dL LIZZY HERRERA Comment: Interpretive Data Ages < or = 19 years Acceptable: <120 mg/dL Borderline high: 120-144 mg/dL High: >145 mg/dL Ages > or = 20 years When triglycerides are >200 mg/dL, Non-HDL cholesterol is a secondary target of therapy with treatment goals that are 30 mg/dL greater than the LDL cholesterol target. Literature References: 1. Expert Panel on Integrated Guidelines for Cardiovascular Health and Risk Reduction in Children and Adolescents. Pediatrics 2011;128:S213 2. NCEP Expert Panel. Circulation 2004;110:227 Current Interpretive Data was last revised on 2018. Testing performed by: [address] [address] Chol/HDL ratio 3 LIZZY Comment:Testing performed by : [address] [address] Blood 07/09/2022 4:45 AM RADAR SCIENTIST 07/09/2022 5:19 AM RADAR SCIENTIST us Kendrick Bowling MD LAB BLOOD ORDERABLES Final Resul t LIZZY [address] [facility] Department [place] [address] * CT Abdomen Pelvis WO Contrast (07/08/2022 2:26 AM RADAR SCIENTIST) Anatomical Region Laterality Modality Body N/A Computed Tomogra phy 07/08/2022 2:41 AM RADAR SCIENTIST Narrative 07/08/2022 2:52 AM RADAR SCIENTIST EXAM DESCRIPTION: CT ABDOMEN PELVIS WO CONTRAST REASON FOR STUDY: Bowel obstruction high-grade suspected Hernia repoair TECHNIQUE: CT scan of the abdomen and pelvis performed without intravenous and without oral contrast using helical scanning technique. Reconstructed coronal and sagittal MPR images reviewed. All images stored on PACS. Automated exposure control was used as a dose optimization technique for this examination. COMPARISON: None FINDINGS: The sensitivity for detection of visceral lesions is diminished without the use of intravenous contrast. LOWER CHEST: No significant pulmonary abnormalities. No effusion. LIVER: Normal size. No identified cystic or solid masses. GALLBLADDER: Normal. BILE DUCTS: No intrahepatic or extrahepatic ductal dilatation. SPLEEN: Normal size. No focal lesions. PANCREAS: No identified cystic or solid masses. No significant calcifications. No adjacent inflammation or peripancreatic fluid collections. Pancreatic duct not dilated. ADRENALS: Normal. KIDNEYS/URINARY TRACT: No identified significant cystic or solid masses. No stones. No hydronephrosis or hydroureter. Urinary bladder is unremarkable. GI: Small hiatal hernia. No dilated bowel loops. No obvious wall thickening. Normal appendix. No significant diverticular disease. PERITONEUM: No ascites or free air. RETROPERITONEUM: No mass or adenopathy. REPRODUCTIVE: No significant abnormality. VASCULATURE: No abdominal aortic aneurysm. MUSCULOSKELETAL: No significant abnormality. OTHER: No other abnormality. IMPRESSION: No acute finding. REFERENCE: Unless otherwise specified, no follow-up imaging is recommended for incidental renal and adrenal lesions per consensus recommendations based on imaging criteria. Further lab evaluation could be pursued based on clinical findings. Management of the Incidental Renal Mass on CT: A White Paper of the ACR Incidental Findings Committee. J Am Sujatha Radiol. 2018 Jul;15(2):264-273. Management of Incidental Adrenal Masses: A White Paper of the ACR Incidental Findings Committee. J Am Sujatha Radiol. 2017 Jan;14(8):2641-8257. THIS IS AN ELECTRONICALLY VERIFIED FINAL REPORT 07/08/2022 2:52 AM - Electronically signed by Michelet Queen M.D. RW: ROD Report ID: [id number] Reading Location: [place] [address] Procedure Note Michelet Queen MD - 07/08/2022 EXAM DESCRIPTION: CT ABDOMEN PELVIS WO CONTRAST REASON FOR STUDY: Bowel obstruction high-grade suspected Hernia repoair TECHNIQUE: CT scan of the abdomen and pelvis performed without intravenousand without oral contrast using helical scanning technique. Reconstructed coronal and sagittal MPR images reviewed. All images stored on PACS. Automated exposure control was used as a dose optimization technique forthis examination. COMPARISON: None FINDINGS: The sensitivity for detection of visceral lesions is diminished without the use of intravenous contrast. LOWER CHEST: No significant pulmonary abnormalities. No effusion. LIVER: Normal size. No identified cystic or solid masses. GALLBLADDER: Normal. BILE DUCTS: No intrahepatic or extrahepatic ductal dilatation. SPLEEN: Normal size. No focal lesions. PANCREAS: No identified cystic or solid masses. No significant calcifications. No adjacent inflammation or peripancreatic fluidcollections. Pancreatic duct not dilated. ADRENALS: Normal. KIDNEYS/URINARY TRACT: No identified significant cystic or solid masses.No stones. No hydronephrosis or hydroureter. Urinary bladder isunremarkable. GI: Small hiatal hernia. No dilated bowel loops. No obvious wallthickening. Normal appendix. No significant diverticular disease. PERITONEUM: No ascites or free air. RETROPERITONEUM: No mass or adenopathy. REPRODUCTIVE: No significant abnormality. VASCULATURE: No abdominal aortic aneurysm. MUSCULOSKELETAL: No significant abnormality. OTHER: No other abnormality. IMPRESSION: No acute finding. REFERENCE: Unless otherwise specified, no follow-up imaging is recommendedfor incidental renal and adrenal lesions per consensus recommendations basedon imaging criteria. Further lab evaluation could be pursued based onclinical findings. Management of the Incidental Renal Mass on CT: A White Paper of the ACR Incidental Findings Committee. J Am Sujatha Radiol. 2018 Jul;15(2):264-273. Management of Incidental Adrenal Masses: A White Paper of the ACRIncidental Findings Committee. J Am Sujatha Radiol. 2017 Jan;14(8):5908-3305. THIS IS AN ELECTRONICALLY VERIFIED FINAL REPORT 07/08/2022 2:52 AM - Electronically signed by Michelet Queen M.D. RW: ROD Report ID: [id number] Reading Location: [place] [address] [facility] PROCEDURES F inal Result from Last 3 Months or Most Recently Relevant to Health Maintenance Insurance MEDICARE MEDICARE Advance Directives For more information, please contact: [phone] * Full Code (Latest Code Status on File) Date Activated Date Inactivated Comments 07/08/2022 5:19 AM 07/09/2022 10:08 PM Care Teams Graphic Design Assistant Relationship Specialty Start Date End Date No, Physician PCP - General 07/08/22 Miscellaneous, Not In File 07/09/22
--- OUTSIDE RECORDS SUMMARY | 2024-09-07 11:52 | XMS_ITS | Clinical Summary ---
Author Organization [facility] Address [address] [place] [address] Care Team Providers Care Battery Builder Name Role Phone No, Physician Primary Care Provider [phone] Miscellaneous, Not In File Unavailable Unava ilable [...] Transient alteration of awareness 07/09/2022 Generalized weakness Medical History Medical History Date Comments Diabetes (HCC) Social History Tobacco Use Types Packs/Day Years [...] often do you attend chur ch or confucianist services? Never 07/09/2022 Do you belong to any clubs o r organizations such as zoroastrian groups, unions, fraternal or athletic groups, or [...] place to sleep or slept in a longterm (including now)? No 07/09/2022 Sex and Gender Information Value Date Recorded Sex Assigned at Not on file Legal Sex Male 5:00 PM RADIO TECHNICIAN Gender Identity Not on file Sexual Orientation Not on file Obstetrics History Last Filed Vital Signs Vital Sign Reading [...] 03/14/2023 3:23 PM CDT Plan of Treatment Health Maintenance Due Date Last Done Comments Albumin Creatinine Ratio, Urine 1955 Colon Cancer Screening-Colonoscopy 1955 Depression Screening 1955 Hepatitis C Screening 1955 Dilated Eye Exam 1955 Foot Exam 1955 DTaP/Tdap/Td Vaccine (1 - Tdap) 1965 Hepatitis B Screening 1972 Pneumococcal vaccine 65+ (1 of 2 - PCV) 1973 Zoster Vaccine (1 of 2) 2004 Well Visit 65+ 2019 Hemoglobin A1C 01/06/2023 07/09/2022 Fall Risk Assessment 07/09/2023 07/09/2022 Lipid Panel 07/09/2023 07/09/2022 eGFR 07/09/2023 07/09/2022, 07/08/2022 Covid-19 Vaccine ( season) 2024, 08/19/2020 Influenza Vaccine (#1) 2024 03/30/2020 Abdominal Aortic Aneurysm (AAA) Screen Completed Procedures Procedure Name Priority Date/Time Associated Diagnosis Comments EGFR Routine 07/09/2022 4:45 AM RADIO TECHNICIAN HEMOGLOBIN A1C Routine 07/09/2022 4:45 AM RADIO TECHNICIAN LIPID PANEL Routine 07/09/2022 4:[address] ABDOMEN PELVIS WO CONTRAST ED 07/08/2022 2:26 AM RADIO TECHNICIAN from Last 3 Months or Most Recently Relevant to Health Maintenance Results * eGFR (07/09/2022 4:45 AM RADIO TECHNICIAN) eGFR 100 mL/min/1. 73 m2 LIZZY HERRERA [...] was last reviewed 2021. Testing performed by: [facility], [address] [place] [address]., [address] Blood 07/09/2022 4:45 AM RADIO TECHNICIAN 07/09/2022 5:19 AM RADIO TECHNICIAN us Moses Ramires MD LAB BLOOD ORDERABLES Final Result LIZZY HERRERA [address] [facility] [place] [address] * (ABNORMAL) Hemoglobin A1c (07/09/2022 4:45 AM RADIO TECHNICIAN) Hgb A1C 9.3(H) 4.0 - 5.6 % LIZZY HERRERA Comment:Testing performed by : [address] [address] Estimated Average Glucose 220 mg/dL LIZZY HERRERA Comment: The ADA recommends reporting an estimated Average Glucose (eAG) with all Hemoglobin A1c results using the equation derived from a study of 507 normal and diabetic adults. Minority populations were underrepresented and children were not included. (Diabetes Care 31:7701-6958, 2008). The eAG is not equivalent to a fasting glucose. Testing performed by: [address] [address] Blood 07/09/2022 4:45 AM RADIO TECHNICIAN 07/09/2022 5:19 AM RADIO TECHNICIAN us Kendrick Bowling MD LAB BLOOD ORDERABLES Final Resul t LIZZY HERRERA [address] [facility] Department [place] [address] * Lipid panel (07/09/2022 4:45 AM RADIO TECHNICIAN) Cholesterol 126 30 - 199 mg/dL LIZZY HERRERA Comment: Interpretive Data Ages [...] last revised on 2018. Testing performed by: [address] [address] Triglycerides 147 <=149 mg/dL LIZZY HERRERA Comment: Interpretive Data Ages [...] last revised on 2018. Testing performed by: [address] [address] HDL 47 >=40 mg/dL LIZZY Comment: Interpretive [...] last revised on 2018. Testing performed by: [address] [address] LDL, calculated 50 <=129 mg/dL LIZZY Comment: [...] last revised on 2018. Testing performed by: [address] [address] Non-HDL Cholesterol 79 mg/dL LIZZY Comment: Interpretive Data Ages < [...] last revised on 2018. Testing performed by: [facility], [address] [place] [address]., [address] Chol/HDL ratio 3 ALISIAMARIEL HERRERA Comment:Testing performed by : [facility], [address] [place] [address]., [address] Blood 07/09/2022 4:45 AM RADIO TECHNICIAN 07/09/2022 5:19 AM RADIO TECHNICIAN us Kendrick Bowling MD LAB BLOOD ORDERABLES Final Resul t LIZZY SHARON [address] [facility] Department [place] [address] * CT Abdomen Pelvis WO Contrast (07/08/2022 2:26 AM RADIO TECHNICIAN) Anatomical Region Laterality Modality Body N/A Computed Tomogra phy 07/08/2022 2:41 AM RADIO TECHNICIAN Narrative 07/08/2022 2:52 AM RADIO TECHNICIAN EXAM DESCRIPTION: CT ABDOMEN PELVIS WO CONTRAST [...] Findings Committee. J Am Sujatha Radiol. 2017 Jan;14(8):9838-7577. THIS IS AN ELECTRONICALLY VERIFIED FINAL REPORT 07/08/2022 2:52 AM - Electronically signed by Michelet Queen M.D. RW: ROD Report ID: [id number] Reading Location: [id number] Procedure Note Michelet Queen MD - 07/08/2022 [...] Findings Committee. J Am Sujatha Radiol. 2017 Jan;14(8):9183-9006. THIS IS AN ELECTRONICALLY VERIFIED FINAL REPORT 07/08/2022 2:52 AM - Electronically signed by Michelet Queen M.D. RW: ROD Report ID: [id number] Reading Location: [place] [address] [facility] IMG CT PROCEDURES F inal Result from Last 3 Months or Most Recently Relevant to Health Maintenance Insurance MEDICARE MEDICARE Advance Directives For more information, please contact: [phone] * Full Code (Latest Code Status on File) Date Activated Date Inactivated Comments 07/08/2022 5:19 AM 07/09/2022 10:08 PM Care Teams Battery Builder Relationship Specialty Start Date End Date No, Physician PCP - General 07/08/22 Miscellaneous, Not In File 07/09/22
--- OUTSIDE RECORDS SUMMARY | 2024-09-07 11:53 | XMS_ITS ---
Author Organization 1 ROSENDO perera DPM [facility] Address [address] [place] [address] Care Team Providers Care Technologies Division Chair Name Role Phone Damian Tilley Primary Care Provider Cindy Quinteros Unavailable [phone] REASON FOR VISIT [facility] Dispense Encounters Encounter Location Date Provider Diagnosis 3 COL Arvind Baker DPM [facility] [address] [facility] [address] [place] [address] 03/20/2023 Cindy Barrera Type 2 diabetes mellitus with other diabetic neurological complication E11.49 Assessments Encounter Date Diagnosis (ICD Code) Assessment Notes Treatment Notes Treatment Clinical Notes Section Notes 03/20/2023 Type 2 diabetes mellitus with other diabetic neurological complication (ICD-10 - E11.49) Plan Of Treatment Next Appt Details Follow Up: As previously monica john , Contact office BIANCA with any concerns, Reason: Procedure Notes * Category Sub-Category Detail Notes DIABETIC SHOES Dispensing of shoes / inserts (initial) A5500 - one pair Extra depth shoes, A5512 - 3 pairs prefabricated heat-moldable inserts, Medicare required documentation supporting the medical necessity of diabetic shoes and inserts is on file including the signed statement of the certifying physician from the patient's doctor who is managing the diabetes. , Patient evaluated by MA for fitting of diabetic shoes and inserts , Heat moldable prefabricated inserts dispensed today meet the criteria to qualify as diabetic inserts. The inserts were heated to over 230 degrees Fahrenheit and molded to the foot on a foam cushion. During the molding process the patients feet were protected from the heated insole by use of thin layer of PPT and/or sock. After molding there was noted to be total contact between the insert and the plantar surface of the foot including the arch., The shoes with the inserts were then fit to the patient's feet and there appeared to be a good fit in WB static stance. With ambulation the patient reported no obvious problems with shoe fit or comfort. The patient signed the document indicating receipt of the shoes which also included specific instructions on how to break in the shoes along with instructions to remove and replace the diabetic inserts every 4 months. This document also explained the return policy. The patient was given a copy of this document along with a copy of the 30 Medicare DMEPOS supplier standards. The patient was instructed to contact our office with any problems or concerns, otherwise follow-up as scheduled, See scanned diabetic shoe paperwork for documentation supporting medical necessity, details of items dispensed today as well as proof of delivery. Progress Notes * Fabio JUARES RDOB: 4 (67 yo M)Acc No.[id number]:03/20/2023 Patient: Fabio Craft Provider: Darwin Barrera DPM :1955 A ge:67 Y S ex:Male Date:03/20/2023 Address:[address] [place] [address] Pcp:Damian Tilley Subjective: * Chief Complaints: * [place] DS Dispense * HPI: Kalie Birmingham assisting with visit:: HPI/Rooming: Jaspreet santos. Cristy ochoa reason for visit:: DME related visit: P atient RTO to be fitted with diabetic shoes and inserts. , Patient reports no changes in condition and has no new complaints. . * Medical History: * Medications: Objective: * Examination: G eneral Examination: F itting of durable medical equipment performed by ROLA. No exam performed other than that required as part of the fitting process. Assessment: * Assessment: 1. T ype 2 diabetes mellitus with other diabetic neurological complication - E11.49 Plan: * Treatment: * Procedures: D IABETIC SHOES: Dispensing of shoes / inserts (initial) A 5500 - one pair Extra depth shoes, A5512 - 3 pairs prefabricated heat-moldable inserts, Medicare required documentation supporting the medical necessity of diabetic shoes and inserts is on file including the signed statement of the certifying physician from the patient's doctor who is managing the diabetes. , Patient evaluated by ROLA for fitting of diabetic shoes and inserts , Heat moldable prefabricated inserts dispensed today meet the criteria to qualify as diabetic inserts. The inserts were heated to over 230 degrees Fahrenheit and molded to the foot on a foam cushion. During the molding process the patients feet were protected from the heated insole by use of thin layer of PPT and/or sock. After molding there was noted to be total contact between the insert and the plantar surface of the foot including the arch., The shoes with the inserts were then fit to the patient's feet and there appeared to be a good fit in WB static stance. With ambulation the patient reported no obvious problems with shoe fit or comfort. The patient signed the document indicating receipt of the shoes which also included specific instructions on how to break in the shoes along with instructions to remove and replace the diabetic inserts every 4 months. This document also explained the return policy. The patient was given a copy of this document along with a copy of the 30 Medicare DMEPOS supplier standards. The patient was instructed to contact our office with any problems or concerns, otherwise follow-up as scheduled, See scanned diabetic shoe paperwork for documentation supporting medical necessity, details of items dispensed today as well as proof of delivery. . * Procedure Codes: A 5500 DM ONLY CSTM PREP SHOE MX DNS INSRT, Modifiers: KX , [id number] DM ONLY CSTM PREP SHOE MX DNS INSRT, Modifiers: KX , [id number] MULTI DEN INSERT DIRECT FORM, Units: 3.00 , Modifiers: KX , [id number] MULTI DEN INSERT DIRECT FORM, Units: 3.00 , Modifiers: KX , RT * Follow Up: A s previously scheduled , Contact office BIANCA with any concerns * Images: * Sign off status: Completed true * Provider: Darwin Barrera DPM Date: Generated for Jose Gunn/Carolee on: 0 09/07/2024 11:52 AM CDT History and Physical Notes * HPI (History of Present Illness) Category Sub-Category Detail Notes Category Not es Primary reason for visit: DME related visit: Patient RTO to be fitted with diabetic shoes and inserts. , Patient reports no changes in condition and has no new complaints. MA assisting with visit: HPI/Rooming: Tammie Examination Category Sub-Category Detail Notes Category Not es General Examination Fitting of durable medical equipment performed by MA. No exam performed other than that required as part of the fitting process.
[2024-09-07 12:32] LABS: Anion Gap 9 mmol/L (4-12); Blood Urea Nitrogen 14 mg/dL (9-20); Calcium 9.1 mg/dL (8.4-10.2); Carbon Dioxide 31 mmol/L (22-30); Chloride 92 mmol/L (98-107); Estimated Glomerular Filt Rate > 60; Glucose 309 mg/dL (65-110); Potassium 5.3 mmol/L (3.4-5.0); Sodium 132 mmol/L (137-145)
[2024-09-07 12:56] LABS: Creatinine Urine 41.6 mg/dL
[2024-09-07 15:07] LABS: Hemoglobin A1C 8.6 % (<5.7)
[2024-09-07 15:25] LABS: MALB Creatinine Ratio 1501.9 mg/g (0-30); Microalbumin Urine Random 624.8 mg/L (0-16.7)
== END 2024-09-07 10:24 | disposition home or self-care (01) ==
PROVIDERS: PCP Nurse Practitioner Family; Visit Provider Nurse Practitioner Family
DX: E11.40 Type 2 diabetes mellitus with diabetic neuropathy, unspecified (principal); I10 Essential (primary) hypertension; Z79.4 Long term (current) use of insulin
CPT/HCPCS: 36415; 80048; 82043; 83036

== ENCOUNTER 2024-09-16 10:10 | Outpatient (CLI) | payer MEDICARE, SELFPAY ==
--- OUTSIDE RECORDS SUMMARY | 2024-09-16 11:09 | XMS_ITS ---
Author Organization 1 ROSENDO perera DPM [employer] Address [address] [facility] [address] [place] [address] Care Team Providers Care Athletic Coach Name Role Phone Damian Tilley Primary Care Provider Cindy Quinteros Unavailable [phone] REASON FOR VISIT [facility] Dispense Encounters Encounter Location Date Provider Diagnosis 3 COL Arvind Baker DPM [employer] [address] [facility] [address] [place] [address] 03/20/2023 Cindy Barrera Type 2 diabetes mellitus [...] Fabio JUARES RDOB: 4 (67 yo M)Acc No.[id number]:03/20/2023 Patient: Fabio Craft Provider: Darwin Barrera DPM :1955 A ge:67 Y S ex:Male Date:03/20/2023 Address:[address] [place] [address] Pcp:Damian Tilley Subjective: * Chief Complaints: * [...] SHOE MX DNS INSRT, Modifiers: KX , [id number] DM ONLY CSTM PREP SHOE MX DNS INSRT, Modifiers: KX , [id number] MULTI DEN INSERT DIRECT FORM, Units: 3.00 , Modifiers: KX , [id number] MULTI DEN INSERT DIRECT FORM, Units: 3.00 , Modifiers: KX , RT * Follow Up: A s previously scheduled , Contact office BIANCA with any concerns * Images: * Sign off status: Completed true * Provider: Darwin Barrera DPM Date: Generated for Jose Gunn/Carolee on: 0 09/16/2024 11:09 AM CDT History and Physical Notes * [...]
--- OUTSIDE RECORDS SUMMARY | 2024-09-16 11:09 | XMS_ITS ---
Author Organization 1 OF Nettie perera [facility] Address [address] [facility] [address] [place] [address] Care Team Providers Care Stitcher Standard Machine Name Role Phone Damian Tilley Primary Care Provider Cindy Quinteros Unavailable [phone] Allergies No Known Allergies REASON FOR VISIT [...] Date Provider Diagnosis 1 OF Nettie Baker [facility] [address] [facility] [address] [place] [address] 04/29/2023 Cindy Barrera Callus of foot L84 [...] Next Appt Details Follow Up: 10 weeks,prn, Lorna son: Procedure Notes * Category Sub-Category Detail Notes PALLIATIVE FOOT CARE: Callus paring: (57549) Le ss than five calluses as noted above reduced with a sterile scalpel blade Nail debride (21316): Debridement of at least six mycotic and/or hypertrophic nails performed:, utilizing manual and electric debridement the affected nails were reduced the nails in length and thickness with curettage of debris from nail margins performed as needed. Nail thickness reduced by:, 25% Progress Notes * Fabio JUARES RDOB: 4 (68 yo M)Acc No.[id number]:04/29/2023 Progress Note Patient: Kalie CORONANATASHAFabio Provider: Darwin Barrera DPM :1955 A ge:67 Y S ex:Male Date:04/29/2023 Address:[address] [place], [place] [address] Pcp:Damian Tilley Subjective: * Chief Complaints: * [...] P ALLIATIVE FOOT CARE:: Callus paring: ( [address]) Less than five calluses as noted above reduced with a sterile scalpel blade. Nail debride (47821): D ebridement of at least six mycotic and/or hypertrophic nails performed:, utilizing manual and electric debridement the affected nails were reduced the nails in length and thickness with curettage of debris from nail margins performed as needed. Nail thickness reduced by:, 25%. * Procedure Codes: 1 1056 TRIM SKIN LESIONS, 2 TO 4, Modifiers: Q8 34937 DEBRIDE NAIL, 6 OR MORE, Modifiers: Q8 , 59 * Preventive Medicine: Screenings: F ALL RISK SCREENING Fall Risk Assessment: N o falls in the past year * Follow Up: 1 0 weeks,prn * Images: * K CHECKER Sign off status: Completed true * Provider: Darwin Barrera DPM Date: 06/29/2022 Generated for Jose woody/Rakesh/Sorenitting on: 0 09/16/2024 11:08 AM CDT History and Physical Notes * [...]
--- OUTSIDE RECORDS SUMMARY | 2024-09-16 11:09 | XMS_ITS | Referral Summary ---
Author Organization [facility] Address [address] [place] [address] Care Team Providers Care Lead Ramp Agent Name Role Phone No, Physician Primary Care Provider [phone] Miscellaneous, Not In File Unavailable Unava ilable [...] often do you attend chur ch or rastafari services? Never 07/09/2022 Do you belong to any clubs o r organizations such as jew groups, unions, fraternal or athletic groups, or [...] place to sleep or slept in a snf (including now)? No 07/09/2022 Sex and Gender Information Value Date Recorded Sex Assigned at Not on file Legal Sex Male 5:00 PM INVESTIGATIVE ANALYST Gender Identity Not on file Sexual Orientation [...] Diagnosis Comments EGFR Routine 07/09/2022 4:45 AM INVESTIGATIVE ANALYST HEMOGLOBIN A1C Routine 07/09/2022 4:45 AM INVESTIGATIVE ANALYST LIPID PANEL Routine 07/09/2022 4:[address] ABDOMEN PELVIS WO CONTRAST ED 07/08/2022 2:26 AM INVESTIGATIVE ANALYST from Last 3 Months or Most Recently Relevant to Health Maintenance Results * eGFR (07/09/2022 4:45 AM INVESTIGATIVE ANALYST) eGFR 100 mL/min/1. 73 m2 LIZZY HERRERA [...] was last reviewed 2021. Testing performed by: [address] [address] Blood 07/09/2022 4:45 AM INVESTIGATIVE ANALYST 07/09/2022 5:19 AM INVESTIGATIVE ANALYST us Moses Ramires MD LAB BLOOD ORDERABLES Final Result Performing Organization Address [facility] Co de Phone Number [place] [id number] [facility] [place] [address] * (ABNORMAL) Hemoglobin A1c (07/09/2022 4:45 AM INVESTIGATIVE ANALYST) Hgb A1C 9.3(H) 4.0 - 5.6 % LIZZY Comment:Testing performed by : [address] [address] Estimated Average Glucose 220 mg/dL LIZZY Comment: The ADA recommends reporting an estimated Average Glucose (eAG) with all Hemoglobin A1c results using the equation derived from a study of 507 normal and diabetic adults. Minority populations were underrepresented and children were not included. (Diabetes Care 31:3687-4585, 2008). The eAG is not equivalent to a fasting glucose. Testing performed by: [address] [address] Blood 07/09/2022 4:45 AM INVESTIGATIVE ANALYST 07/09/2022 5:19 AM INVESTIGATIVE ANALYST us Kendrick Bowling MD LAB BLOOD ORDERABLES Final Resul t Performing Organization Address [facility] Co de Phone Number [facility] [address] [facility] [address] * Lipid panel (07/09/2022 4:45 AM INVESTIGATIVE ANALYST) Cholesterol 126 30 - 199 mg/dL LIZZY [...] last revised on 2018. Testing performed by: [address] [address] Triglycerides 147 <=149 mg/dL LIZZY Comment: Interpretive [...] last revised on 2018. Testing performed by: [address] [address] HDL 47 >=40 mg/dL LIZZY Comment: Interpretive [...] last revised on 2018. Testing performed by: [address] [address] LDL, calculated 50 <=129 mg/dL LIZZY Comment: [...] last revised on 2018. Testing performed by: [address] [address] Non-HDL Cholesterol 79 mg/dL LIZZY HERRERA Comment: [...] last revised on 2018. Testing performed by: [address] [address] Chol/HDL ratio 3 LIZZY Comment:Testing performed by : [address] [address] Blood 07/09/2022 4:45 AM INVESTIGATIVE ANALYST 07/09/2022 5:19 AM INVESTIGATIVE ANALYST us Kendrick Bowling MD LAB BLOOD ORDERABLES Final Resul t LIZZY [address] [facility] [place] [address] * CT Abdomen Pelvis WO Contrast (07/08/2022 2:26 AM INVESTIGATIVE ANALYST) Anatomical Region Laterality Modality Body N/A Computed Tomogra phy 07/08/2022 2:41 AM INVESTIGATIVE ANALYST Narrative 07/08/2022 2:52 AM INVESTIGATIVE ANALYST EXAM DESCRIPTION: CT ABDOMEN PELVIS WO CONTRAST [...] Findings Committee. J Am Sujatha Radiol. 2017 Jan;14(8):6637-9006. THIS IS AN ELECTRONICALLY VERIFIED FINAL REPORT 07/08/2022 2:52 AM - Electronically signed by Michelet Queen M.D. RW: ROD Report ID: [id number] Reading Location: [place] [address] Procedure Note Michelet Queen MD - 07/08/2022 [...] Findings Committee. J Am Sujatha Radiol. 2017 Jan;14(8):0004-1273. THIS IS AN ELECTRONICALLY VERIFIED FINAL REPORT 07/08/2022 2:52 AM - Electronically signed by Michelet Queen M.D. RW: ROD Report ID: [id number] Reading Location: [place] [address] [facility] IM CT PROCEDURES F inal Result from Last 3 Months or Most Recently Relevant to Health Maintenance Insurance MEDICARE MEDICARE Advance Directives For more information, please contact: [phone] * Full Code (Latest Code Status on File) Date Activated Date Inactivated Comments 07/08/2022 5:19 AM 07/09/2022 10:08 PM Care Teams Lead Ramp Agent Relationship Specialty Start Date End Date No, Physician PCP - General 07/08/22 Miscellaneous, Not In File 07/09/22
--- OUTSIDE RECORDS SUMMARY | 2024-09-16 11:09 | XMS_ITS | Patient Health Record ---
Author Organization 1 OF Nettie perera [facility] Address [address] [facility] [address] [place] [address] Care Team Providers Care Online User Experience Strategist Name Role Phone Damian Tilley Primary Care Provider Cindy Quinteros Unavailable [phone] Allergies No Known Allergies Reason For Referral [...] Problem Status W/U Status Risk Notes Problem [id number] Type 2 diabetes mellitus with other diabetic neurological complication (E11.49) Active confirmed Plan Of Treatment No Information Insurance Providers Payer Name Payer Address Payer Phone Subscriber Number Group Number Insured Name Patient Relationship to Insured Coverage Start Date Coverage End Date Medicare [address] [facility] [place] [id number] Fabio Juares Self - patient is the insured Medical (General) History Medical History History ICD Code diabetes, , Hypertension, high cholester ol, cataracts Surgical History Surgery Date(Month/Year) Cataract surgery B/L 01/2023
--- OUTSIDE RECORDS SUMMARY | 2024-09-16 11:09 | XMS_ITS | Clinical Summary ---
Author Organization [facility] Address [address] [place] [address] Care Team Providers Care Furnace Firer Name Role Phone No, Physician Primary Care Provider [phone] Miscellaneous, Not In File Unavailable Unava ilable [...] often do you attend chur ch or mormonism services? Never 07/09/2022 Do you belong to any clubs o r organizations such as baptism groups, unions, fraternal or athletic groups, or [...] place to sleep or slept in a half-way (including now)? No 07/09/2022 Sex and Gender Information Value Date Recorded Sex Assigned at Not on file Legal Sex Male 5:00 PM AUTOMATED EQUIPMENT ENGINEER TECHNICIAN Gender Identity Not on file Sexual [...] Diagnosis Comments EGFR Routine 07/09/2022 4:45 AM AUTOMATED EQUIPMENT ENGINEER TECHNICIAN HEMOGLOBIN A1C Routine 07/09/2022 4:45 AM AUTOMATED EQUIPMENT ENGINEER TECHNICIAN LIPID PANEL Routine 07/09/2022 4:45 AM AUTOMATED EQUIPMENT ENGINEER TECHNICIAN CT ABDOMEN PELVIS WO CONTRAST ED 07/08/2022 2:26 AM AUTOMATED EQUIPMENT ENGINEER TECHNICIAN from Last 3 Months or Most Recently Relevant to Health Maintenance Results * eGFR (07/09/2022 4:45 AM AUTOMATED EQUIPMENT ENGINEER TECHNICIAN) eGFR 100 mL/min/1. 73 m2 LIZZY [...] was last reviewed 2021. Testing performed by: [facility], [address] [place] [address]., [address] Blood 07/09/2022 4:45 AM AUTOMATED EQUIPMENT ENGINEER TECHNICIAN 07/09/2022 5:19 AM AUTOMATED EQUIPMENT ENGINEER TECHNICIAN us Moses Ramires MD LAB BLOOD ORDERABLES Final Result ILZZY HERRERA [address] [facility] Department [place] [address] * (ABNORMAL) Hemoglobin A1c (07/09/2022 4:45 AM AUTOMATED EQUIPMENT ENGINEER TECHNICIAN) Hgb A1C 9.3(H) 4.0 - 5.6 % LIZZY HERRERA Comment:Testing performed by : [address] [address] Estimated Average Glucose 220 mg/dL LIZZY HERRERA Comment: The ADA recommends reporting an estimated Average Glucose (eAG) with all Hemoglobin A1c results using the equation derived from a study of 507 normal and diabetic adults. Minority populations were underrepresented and children were not included. (Diabetes Care 31:1676-4419, 2008). The eAG is not equivalent to a fasting glucose. Testing performed by: [address] [address] Blood 07/09/2022 4:45 AM AUTOMATED EQUIPMENT ENGINEER TECHNICIAN 07/09/2022 5:19 AM AUTOMATED EQUIPMENT ENGINEER TECHNICIAN us Kendrick Bowling MD LAB BLOOD ORDERABLES Final Resul t LIZZY HERRERA [address] [facility] Department [place] [address] * Lipid panel (07/09/2022 4:45 AM AUTOMATED EQUIPMENT ENGINEER TECHNICIAN) Cholesterol 126 30 - 199 mg/dL [...] last revised on 2018. Testing performed by: [address] [address] Triglycerides 147 <=149 mg/dL LIZZY HERRERA Comment: [...] last revised on 2018. Testing performed by: [address] [address] HDL 47 >=40 mg/dL LIZZY Comment: Interpretive [...] last revised on 2018. Testing performed by: [address] [address] LDL, calculated 50 <=129 mg/dL LIZZY Comment: [...] last revised on 2018. Testing performed by: [address] [address] Non-HDL Cholesterol 79 mg/dL LIZZY Comment: Interpretive [...] last revised on 2018. Testing performed by: [facility], [address] [place] [address]., [address] Chol/HDL ratio 3 ALISIAMARIEL HERRERA Comment:Testing performed by : [facility], [address] [place] [address]., [address] Blood 07/09/2022 4:45 AM AUTOMATED EQUIPMENT ENGINEER TECHNICIAN 07/09/2022 5:19 AM AUTOMATED EQUIPMENT ENGINEER TECHNICIAN us Kendrick Bowling MD LAB BLOOD ORDERABLES Final Resul t LIZZY SHARON [address] [facility] Department [place] [address] * CT Abdomen Pelvis WO Contrast (07/08/2022 2:26 AM AUTOMATED EQUIPMENT ENGINEER TECHNICIAN) Anatomical Region Laterality Modality Body N/A Computed Tomogra phy 07/08/2022 2:41 AM AUTOMATED EQUIPMENT ENGINEER TECHNICIAN Narrative 07/08/2022 2:52 AM AUTOMATED EQUIPMENT ENGINEER TECHNICIAN EXAM DESCRIPTION: CT ABDOMEN PELVIS WO [...] Findings Committee. J Am Sujatha Radiol. 2017 Jan;14(8):2447-1386. THIS IS AN ELECTRONICALLY VERIFIED FINAL REPORT 07/08/2022 2:52 AM - Electronically signed by Michelet Queen M.D. RW: ROD Report ID: [id number] Reading Location: [id number] Procedure Note Michelet Queen MD - 07/08/2022 [...] Findings Committee. J Am Sujatha Radiol. 2017 Jan;14(8):6243-5619. THIS IS AN ELECTRONICALLY VERIFIED FINAL REPORT 07/08/2022 2:52 AM - Electronically signed by Michelet Queen M.D. RW: ROD Report ID: [id number] Reading Location: [place] [address] [facility] PROCEDURES F inal Result from Last 3 Months or Most Recently Relevant to Health Maintenance Insurance MEDICARE MEDICARE Advance Directives For more information, please contact: [phone] * Full Code (Latest Code Status on File) Date Activated Date Inactivated Comments 07/08/2022 5:19 AM 07/09/2022 10:08 PM Care Teams Furnace Firer Relationship Specialty Start Date End Date No, Physician PCP - General 07/08/22 Miscellaneous, Not In File 07/09/22
--- OUTSIDE RECORDS SUMMARY | 2024-09-16 11:09 | XMS_ITS ---
Author Organization [facility] OF Nettie perera [facility] Address [address] [place] [address] Care Team Providers Care Account Manager Relief Name Role Phone Damian Tilley Primary Care Provider Cindy Quinteros Unavailable [phone] REASON FOR VISIT DFC (Diabetic foot care) Encounters Encounter Location Date Provider Diagnosis [facility] Nettie Baker [facility] [address] [place] [address] 07/08/2023 Cindy Barrera Callus of foot L84 [...] Detail Notes PALLIATIVE FOOT CARE: Callus paring: (78462) Le ss than five calluses as noted above reduced with a sterile scalpel blade Nail debride (96228): Debridement of at least six mycotic and/or hypertrophic nails performed:, utilizing manual and electric debridement the affected nails were reduced the nails in length and thickness with curettage of debris from nail margins performed as needed. Nail thickness reduced by:, 25% Progress Notes * Fabio JUARES RDOB: 4 (69 yo M)Acc No.[id number]:07/08/2023 Progress Note Patient: Fabio BURGOS Provider: Darwin Barrera DPM :1955 A ge:68 Y S ex:Male Date:07/08/2023 Address:[address] [place] [address], [address] Pcp:Damian Tilley Subjective: * Chief Complaints: * 1 . DFC (Diabetic foot care). * HPI: Kalie Birmingham assisting with visit:: HPI/Rooming: . ..... P [facility] reason for visit:: Diabetic Foot Care: 6 [...] P ALLIATIVE FOOT CARE:: Callus paring: ( 98613) Less than five calluses as noted above reduced with a sterile scalpel blade. Nail debride (49326): D ebridement of at least six mycotic and/or hypertrophic nails performed:, utilizing manual and electric debridement the affected nails were reduced the nails in length and thickness with curettage of debris from nail margins performed as needed. Nail thickness reduced by:, 25%. * Procedure Codes: 1 1056 TRIM SKIN LESIONS, 2 TO 4, Modifiers: Q8 , 10622 DEBRIDE NAIL, 6 OR MORE, Modifiers: Q8 , 59 * Follow Up: 1 0 weeks,prn * Images: * Electronic signature of Rona Barrera DPM on 09/16/2024 at 11:08 AM CDT Sign off status: Pending * Provider: Darwin Barrera DPM Date: 0 07/08/2023 Generated for Jose woody/Rakesh/Carolee on: 0 09/16/2024 11:08 AM CDT History [...]
--- OUTSIDE RECORDS SUMMARY | 2024-09-16 11:09 | XMS_ITS | Clinical Summary ---
Author Organization [facility] Address [address] [place] [address] Care Team Providers Care Campus Monitor Name Role Phone Alcides Ramirez MD Primary Care Provider Allergies No known active allergies Medications traMADol [...] Annual Medicare Wellness Visit 2019 Pneumococcal Vaccine: 50+ Years (1 of 1 - PCV) 2019 [...] MRSA 01/08/2017 01/08/2017 Insurance MEDICARE Care Teams Campus Monitor Relationship Specialty Start Date End Date Alcides Ramirez MD PCP - General FAMILY PRACTICE 01/19/22
[2024-09-16 13:50] LABS: Anion Gap 6 mmol/L (4-12); Blood Urea Nitrogen 12 mg/dL (9-20); Calcium 9.1 mg/dL (8.4-10.2); Carbon Dioxide 32 mmol/L (22-30); Chloride 96 mmol/L (98-107); Estimated Glomerular Filt Rate > 60; Glucose 297 mg/dL (65-110); Potassium 4.9 mmol/L (3.4-5.0); Sodium 134 mmol/L (137-145)
== END 2024-09-16 10:11 | disposition home or self-care (01) ==
LOC: ANHGOSHLAB 10:12
PROVIDERS: PCP Nurse Practitioner Family; Visit Provider Nurse Practitioner Family
DX: E87.5 Hyperkalemia (principal)
CPT/HCPCS: 36415; 80048

== ENCOUNTER 2025-01-13 10:12 | Outpatient (CLI) | payer MEDICARE, SELFPAY ==
--- OUTSIDE RECORDS SUMMARY | 2025-01-13 10:21 | XMS_ITS | Patient Health Record ---
Author Organization [facility] OF Nettie perera [facility] Address [address] [facility] [address] [place] [address] Care Team Providers Care Manager Parking Name Role Phone Damian Tilley Primary Care Provider Cindy Quinteros Unavailable [phone] Allergies No Known Allergies Reason For Referral No Information Medications Medication SIG (Take, Route, Fr equency, Duration) Notes Start Date End Date Status Simvastatin Active Lisinopril Active metFORMIN HCl Active amLODIPine Besylate Active Ketoconazole 2 % 1 application to aff ected area on bottom of feet Topical Once a day; Duration: 60 days 09/24/2022 Active Aspirin Active Social History Tobacco Use: Social History Observation Description Date Details (start date - stop date) Never Smoker NA - NA Tobacco Use/Smoking Question Answer Notes Are you a nonsmoker Problems Problem Type SNOMED Code ICD Code Onset Dates Problem Status W/U Status Risk Notes Problem Type 2 diabetes mellitus with other diabetic neurological complication (E11.49) Active confirmed Plan Of Treatment No Information Insurance Providers Payer Name Payer Address Payer Phone Subscriber Number Group Number Insured Name Patient Relationship to Insured Coverage Start Date Coverage End Date Medicare [address] [place], [place] [id number] Fabio Juares Self - patient is the insured Medical (General) History Medical History History ICD Code diabetes, , Hypertension, high cholester ol, cataracts Surgical History Surgery Date(Month/Year) Cataract surgery B/L 01/2023
--- OUTSIDE RECORDS SUMMARY | 2025-01-13 10:21 | XMS_ITS | Clinical Summary ---
Author Organization [facility] ilms Address [address] [place] [address] Care Team Providers Care Pediatrician Managing Partner Name Role Phone Miscellaneous, Not In File Unavailable Unava ilable Ady Wallis MD Primary Care Provider [phone] Allergies No known active allergies Medications metFORMIN (GLUCOPHAGE) 1,000 mg tablet Take 1 tablet (1,000 mg total) by mouth 2 (two) times a day with meals Active lisinopriL (PRINIVIL,ZESTR IL) 40 mg tablet Take 1 tablet (40 mg total) by mouth daily 05/14/2022 Active simvastatin (ZOCOR) 20 mg tablet Take 1 tablet (20 mg total) by mouth daily 05/14/2022 Active pen needle, diabetic 32 gauge x 5/32 needle Use as directed twice a day 100 each 07/09/2022 Active lancets misc Use as directed up to 4 times a day. 100 each 1 07/09/2022 Active gabapentin (NEURONTIN) 300 mg capsule Take 1 capsule (300 mg total) by mouth 3 (three) times a day 11/03/2024 Active meloxicam (MOBIC) 7.5 mg tablet Take 1 tablet (7.5 mg total) by mouth nightly 10/12/2024 Active aspirin 81 mg chewable tablet Take 1 tablet (81 mg total) by mouth daily Active amLODIPine (NORVASC) 5 mg tablet Take 1 tablet (5 mg total) by mouth daily 30 tablet 11/17/2024 11/18/19 26 Active insulin lispro (HumaLOG, ADMELOG) 100 unit/mL pen for injection Inject 2-10 units under the skin 3 (three) times a day with meals. Blood glucose mg/dL 150-199: 2 units, 200-249: 4 units, 250-299: 6 units, 300-349: 8 units, 350 or greater: 10 units. Notify provider for blood glucose greater than 299 mg/dL. Refer to After Visit Summary for Sliding Scale Insulin Instructions. 15 mL 11/16/2024 Active insulin lispro (HumaLOG, ADMELOG) 100 unit/mL pen for injection Inject 14 Units under the skin 3 (three) times a day with meals 15 mL 11/16/2024 Active insulin glargine 100 unit/mL (3 mL) pen for injection Inject 25 Units under the skin 2 (two) times a day 15 mL 11/16/2024 Active Active Problems Problem Noted Date Diagnosed Date Transient neurological symptoms 11/13/2024 Dizziness 11/12/2024 Type 2 diabetes mellitus wit h hyperglycemia, with long-term current use of insulin 07/09/2022 Essential hypertension 07/09/2022 Transient alteration of awareness 07/09/2022 Generalized weakness Encounters Date Type Department Care Team Description 11/12/2024 1:37 PM CDT - 11/16/2024 2:32 PM CDT Hospital Encounter [place] [address] Med [address] [place] [address] Patricio Ingram MD Pham, Kevin, DO Dizziness (Primary Dx); Hypoglycemia; Blurry vision; Type 2 diabetes mellitus with hyperglycemia, with long-term current use of insulin (HCC); Essential hypertension; Transient alteration of awareness; Transient neurological symptoms; Generalized weakness Discharge Disposition: Discharge to home or self care from Last 3 Months Immunizations Immunization Administration Dates Next Due Influenza, Quadrivalent, Split, Intramuscular Medical History Medical History Date Comments Diabetes (HCC) Hepatitis A 1974 Family History Medical History Relation Name Comments COPD Brother Luigi smoker Diabetes Father Hypertension Father Cancer Mother breast and brai n Heart disease Mother Secondary to c hemotherapy COPD Sister 1 Lisa smoker Rafaela's thyroiditis Sister 2 Guerline Thyroid disease Sister 3 Florence Relation Name Status Comments Brother Luigi Father Mother Sister 1 Lisa Sister 2 Guerline Alive Sister 3 Florence Alive Social History Tobacco Use Types Packs/Day Years Used Date Smoking Tobacco: Never Smokeless Tobacco: Current Chew Tobacco Cessation:Ready to Q uit: No; Counseling Given: Yes Alcohol Use Standard Drinks/Week Comments Yes 0 (1 standard drink = 0.6 oz pur e alcohol) socially [facility] Utilities Answer Date Recorded In the past 12 months has th e electric, gas, oil, or water company threatened to shut off services in your home? No 11/13/2024 Social Connection and Isolation Panel Answer Date Recorded In a typical week, how many times do you talk on the phone with family, friends, or neighbors? More than three times a week 11/13/2024 How often do you get togethe r with friends or relatives? More than three times a week 11/13/2024 How often do you attend chur ch or alevism services? Never 11/13/2024 Do you belong to any clubs o r organizations such as orthodoxy groups, unions, fraternal or athletic groups, or school groups? No 11/13/2024 How often do you attend meet ings of the clubs or organizations you belong to? Never 11/13/2024 Are you , , di vorced, , never , or living with a partner? Never 11/13/2024 AUDIT-C Answer Date Recorded Q1: How often do you have a drink containing alcohol? Never 11/12/2024 Q2: How many drinks containi ng alcohol do you have on a typical day when you are drinking? Patient does not drink Q3: How often do you have si x or more drinks on one occasion? Never 11/12/2024 Overall Financial Resource Strain (CARDIA) Answe r Date Recorded How hard is it for you to pa y for the very basics like food, housing, medical care, and heating? Not hard at all 11/13/2024 Hunger Vital Sign Answer Date Recorded Within the past 12 months, y ou worried that your food would run out before you got the money to buy more. Never true 11/14/19 25 Within the past 12 months, t he food you bought just didn't last and you didn't have money to get more. Never true 11/13/2024 PRAPARE - Transportation Answer Date Re corded In the past 12 months, has l ack of transportation kept you from medical appointments or from getting medications? No 11/01 In the past 12 months, has l ack of transportation kept you from meetings, work, or from getting things needed for daily living? No 11/13/2024 Housing Stability Vital Sign Answer Dhruv e [...] place to sleep or slept in a long-term (including now)? No 07/09/2022 Housing Stability Vital Sign Answer Dhruv e Recorded In the last 12 months, was t here a time when you were not able to pay the mortgage or rent on time? No 11/13/2024 In the past 12 months, how m any times have you moved where you were living? 0 11/13/2024 At any time in the past 12 m [facility], were you homeless or living in a long-term (including now)? No 11/13/2024 Personal Safety Answer Date Recorded Have you ever been in or are you currently in a harmful physical or emotional relationship or is someone making you feel afraid or unsafe? Denies 11/12/2024 Sex and Gender Information Value Date Recorded Sex Assigned at Not on file Legal Sex Male 5:00 PM [employer] Gender Identity Not on file Sexual Orientation Not on file Obstetrics History Last Filed Vital Signs Vital Sign Reading Time Taken Comments Blood Pressure 134/91 11/16/2024 10:40 AM CDT Pulse 84 11/16/2024 10:40 AM CDT Temperature 36.4 C (97.5 F) 11/16/2024 10:40 AM CDT Respiratory Rate 18 11/16/2024 10:4 0 AM CDT Oxygen Saturation 98% 11/16/2024 10: 40 AM CDT Inhaled Oxygen Concentration - - Weight 74.8 kg (164 lb 12.8 oz) 11/12/2024 7:58 PM CDT Height 170.2 cm (5' 7) 11/12/2024 7:58 PM CDT Body Mass Index 25.81 11/12/2024 7:58 PM CDT Plan of Treatment Health Maintenance [...] of 2) 2004 Well Visit 65+ 2019 Covid-19 Vaccine (3 - 2023-2 5 season) 2024 09/16/2020, 08/19/2020 Influenza Vaccine (#1) 2025 , 03/18/2023, 06/13/2022, Additional history exists Hemoglobin A1C 05/15/2025 11/13/2024, 07/09/2022 Lipid Panel 11/13/2025 11/13/2024, 07/09/2022 eGFR 11/15/2025 11/15/2024, 11/01, 11/13/2024, Additional history exists Fall Risk Assessment 11/16/2025 11/16/2024 Procedures Procedure Name Priority Date/Time Associated Diagnosis Comments POCT GLUCOSE DEVICE Routine 11/16/2024 1 1:11 AM CDT POCT GLUCOSE DEVICE Routine 11/16/2024 8 :01 AM CDT POCT GLUCOSE DEVICE Routine 11/15/2024 8 :55 PM CDT POCT GLUCOSE DEVICE Routine 11/15/2024 4 :35 PM CDT EGFR Routine 11/15/2024 11:29 AM CDT CBC WITHOUT DIFFERENTIAL Routine 11/15/2024 11:29 AM CDT BASIC METABOLIC PANEL Routine 11/15/2024 11:29 AM CDT POCT GLUCOSE DEVICE Routine 11/15/2024 1 0:55 AM CDT POCT GLUCOSE DEVICE Routine 11/15/2024 7 :20 AM CDT POCT GLUCOSE DEVICE Routine 11/14/2024 8 :55 PM CDT POCT GLUCOSE DEVICE Routine 11/14/2024 3 :47 PM CDT US CAROTIDS DUPLEX BILATERAL IP Routine 11/14/2024 1:09 PM CDT POCT GLUCOSE DEVICE Routine 11/14/2024 1 0:55 AM CDT EGFR Routine 11/14/2024 8:54 AM CDT CBC WITHOUT DIFFERENTIAL Routine 11/14/2024 8:54 AM CDT COMPREHENSIVE METABOLIC PANEL Routine 11/14/2024 8:54 AM CDT POCT GLUCOSE DEVICE Routine 11/14/2024 7 :29 AM CDT POCT GLUCOSE DEVICE Routine 11/13/2024 8 :11 PM CDT CTA HEAD NECK W WO CONTRAST IP Routine 11/13/2024 6:48 PM CDT POCT GLUCOSE DEVICE Routine 11/13/2024 5 :24 PM CDT POCT GLUCOSE DEVICE Routine 11/13/2024 2 :23 PM CDT POCT GLUCOSE DEVICE Routine 11/13/2024 1 1:18 AM CDT TRANSTHORACIC ECHO (TTE) COMPLETE W DOPPLER/CF W CONTRAST Routine 11/13/2024 10:12 AM CDT EGFR Routine 11/13/2024 8:48 AM CDT CBC WITHOUT DIFFERENTIAL Routine 11/13/2024 8:48 AM CDT COMPREHENSIVE METABOLIC PANEL Routine 11/13/2024 8:48 AM CDT POCT GLUCOSE DEVICE Routine 11/13/2024 7 :49 AM CDT LIPID PANEL Routine 11/13/2024 4:42 AM CDT HEMOGLOBIN A1C Routine 11/13/2024 4:42 AM CDT POCT GLUCOSE DEVICE Routine 11/12/2024 1 0:18 PM CDT MRI BRAIN WO CONTRAST IP Routine 11/12/2024 8:05 PM CDT POCT GLUCOSE DEVICE Routine 11/12/2024 6 :15 PM CDT POCT GLUCOSE DEVICE Routine 11/12/2024 4 :[address] HEAD WO CONTRAST ED 11/12/2024 4 :29 PM CDT POCT GLUCOSE DEVICE Routine 11/12/2024 2 :30 PM CDT POCT GLUCOSE DEVICE Routine 11/12/2024 1 :45 PM CDT EGFR STAT 11/12/2024 1:44 PM CDT DIFFERENTIAL AUTO STAT 11/12/2024 1:4 4 PM CDT COMPREHENSIVE METABOLIC PANEL STAT 11/12/2024 1:44 PM CDT CBC WITH AUTO DIFFERENTIAL STAT 11/12/2024 1:44 PM CDT from Last 3 Months Results * (ABNORMAL) POCT glucose (11/16/2024 11:11 AM CDT) [facility] Signature Glucose, POC 328(H) 70 - 199 mg/dL Comment:Testing performed by : [facility], [address] [place] [address]., [id number] Glucose comment 1 Use This Result LIZZY Comment:Testing performed by : [address] [address] Glucose comment 2 RN/MD Notified LIZZY Comment:Testing performed by : [address] [address] Blood 11/16/2024 11:1 1 AM CDT 11/16/2024 11:11 AM CDT Florentino Khoury DO LAB POCT ORDERABLES - DEVICE Fin al Result Performing Organization Address [facility] Co de Phone Number [address] [employer] [place] [address] * (ABNORMAL) POCT glucose (11/16/2024 8:01 AM CDT) Glucose, POC 237(H) 70 - 199 mg/dL Comment:Testing performed by : [address] [address] Glucose comment 1 RN/MD Notified LIZZY Comment:Testing performed by : [address] [address] Blood 11/16/2024 8:01 AM CDT 11/16/2024 8:01 AM CDT Florentino Khoury DO LAB POCT ORDERABLES - DEVICE Fin al Result Performing Organization Address [facility] Co de Phone Number [address] [employer] [place] [address] * POCT glucose (11/15/2024 8:55 PM CDT) Glucose, POC 192 70 - 199 mg/dL Comment:Testing performed by : [address] [address] Glucose comment 1 RN/MD Notified LIZZY Comment:Testing performed by : [address] [address] Blood 11/15/2024 8:55 PM CDT 11/15/2024 8:55 PM CDT Florentino Khoury DO LAB POCT ORDERABLES - DEVICE Fin al Result Performing Organization Address City/[facility] Co de Phone Number LIZZY [address] [address] * POCT glucose (11/15/2024 4:35 PM CDT) Glucose, POC 162 70 - 199 mg/dL Comment:Testing performed by : [facility], [address] [place] [address]., [address] Blood 11/15/2024 4:35 PM CDT 11/15/2024 4:35 PM CDT Florentino Khoury DO LAB POCT ORDERABLES - DEVICE Fin al Result Performing Organization Address [facility] de Phone Number ALISIA[address] [place] [address] * eGFR (11/15/2024 11:29 AM CDT) eGFR >90 >=60 mL/min/1. 73 m2 Comment: Interpretive Data Reference Interval Normal >/= [...] was last reviewed 2021. Testing performed by: [address] [address] Blood 11/15/2024 11:2 9 AM CDT 11/15/2024 12:15 PM CDT Florentino Khoury DO LAB BLOOD ORDERABLES Final Resul t LIZZY [facility] Department [place] [address] * (ABNORMAL) CBC without differential (11/15/2024 11:29 AM CDT) WBC 6.40 3.80 - 9.90 K/cumm Comment:Testing performed by : [address] [address] Hgb 12.8(L) 13.0 - 17.5 g/dL LIZZY Comment:Testing performed by : [address] [address] Hct 38.2(L) 38.9 - 50.3 % LIZZY Comment:Testing performed by : [address] [address] Plt 220 150 - 400 K/cumm LIZZY Comment:Testing performed by : [address] [address] MPV 10.7 9.1 - 12.3 fL LIZZY Comment:Testing performed by : [address] [address] RBC 4.57 4.30 - 5.80 M/cumm LIZZY HERRERA Comment:Testing performed by : [address] [address] MCV 83.6 81.3 - 96.4 fL LIZZY HERRERA Comment:Testing performed by : [address] [address] MCH 28.0 27.1 - 33.3 pg LIZZY HERRERA Comment:Testing performed by : [address] [address] MCHC 33.5 32.3 - 35.7 g/dL LIZZY HERRERA Comment:Testing performed by : [address] [address] RDW CV 12.9 11.1 - 14.9 % LIZZY HERRERA Comment:Testing performed by : [address] [address] RDW SD 38.9 35.7 - 48.1 fL LIZZY HERRERA Comment:Testing performed by : [address] [address] NRBC abs 0.00 0.00 - 0.01 K/cumm LIZZY HERRERA Comment:Testing performed by : [address] [address] Blood 11/15/2024 11:2 9 AM CDT 11/15/2024 12:15 PM CDT Florentino Khoury DO LAB BLOOD ORDERABLES Final Resul t Performing Organization Address City/State/[facility] Co de Phone Number LIZZY [address] [facility] Department [place] [address] * (ABNORMAL) Basic metabolic panel (11/15/2024 11:29 AM CDT) Sodium 134(L) 135 - 145 mmol/L Comment:Testing performed by : [address] [address] Potassium, pl 4.8 3.3 - 4.9 mmol/L LIZZY HERRERA Comment:Testing performed by : [address] [address] Chloride 97 97 - 110 mmol/L LIZZY HERRERA Comment:Testing performed by : [address] [address] CO2 27 22 - 32 mmol/L LIZZY HERRERA Comment:Testing performed by : [address] [address] Anion gap 10 2 - 15 mmol/L LIZZY HERRERA Comment:Testing performed by : [address] [address] BUN 17 6 - 25 mg/dL LIZZY HERRERA Comment:Testing performed by : [address] [address] Creatinine 0.91 0.80 - 1.30 mg/dL LIZZY Comment:Testing performed by : [facility], [address] [place] [address]., [address] Glucose 236(H) 70 - 199 mg/dL LIZZY Comment: Delta - Results Reviewed Interpretive Data Fasting glucose >/= 126 mg/dl is diagnostic for diabetes. Fasting is defined as no caloric intake for at least 8 hours. Fasting glucose between 100 mg/dl to 125 mg/dl is diagnostic of prediabetes. In a patient with classic symptoms of hyperglycemia or hyperglycemic crisis, a random glucose >/= 200 mg/dl is diagnostic for diabetes. In the absence of unequivocal hyperglycemia, results should be confirmed by repeat testing. The classification and Diagnosis of Diabetes Diabetes Care 2021; 46: S19-S40. Current interpretive data was last revised 2022. Testing performed by: [address] [address] Calcium 9.3 8.5 - 10.3 mg/dL LIZZY Comment:Testing performed by : [address] [address] Blood 11/15/2024 11:2 9 AM CDT 11/15/2024 12:15 PM CDT us Florentino Khoury DO LAB BLOOD ORDERABLES Final Resul t Performing Organization Address [facility] Phone Number [facility] [address] [facility] Department [place] [address] * (ABNORMAL) POCT glucose (11/15/2024 10:55 AM CDT) Glucose, POC 247(H) 70 - 199 mg/dL Comment:Testing performed by : [address] [address] Blood 11/15/2024 10:5 5 AM CDT 11/15/2024 10:55 AM CDT us Florentino Khoury DO LAB POCT ORDERABLES - DEVICE Fin al Result Performing Organization Address [facility] Co de Phone Number LIZZY [address] [address] * (ABNORMAL) POCT glucose (11/15/2024 7:20 AM CDT) Glucose, POC 213(H) 70 - 199 mg/dL Comment:Testing performed by : [address] [address] Blood 11/15/2024 7:20 AM CDT 11/15/2024 7:20 AM CDT Florentino Khoury DO LAB POCT ORDERABLES - DEVICE Fin al Result Performing Organization Address [facility] de Phone Number [address] [address] * POCT glucose (11/14/2024 8:55 PM CDT) Glucose, POC 118 70 - 199 mg/dL Comment:Testing performed by : [address] [address] Glucose comment 1 RN/MD Notified [facility] Comment:Testing performed by : [address] [address] Blood 11/14/2024 8:55 PM CDT 11/14/2024 8:55 PM CDT Florentino Khoury DO LAB POCT ORDERABLES - DEVICE Fin al Result Performing Organization Address [facility] de Phone Number [address] [address] * (ABNORMAL) POCT glucose (11/14/2024 3:47 PM CDT) Glucose, POC 219(H) 70 - 199 mg/dL Comment:Testing performed by : [address] [address] Blood 11/14/2024 3:47 PM CDT 11/14/2024 3:47 PM CDT us Florentino Khoury DO LAB POCT ORDERABLES - DEVICE Fin al Result LIZZY [address] [facility] Department [place] [address] * US Carotids Duplex Bilateral (11/14/2024 1:09 PM CDT) Anatomical Region Laterality Modality Vascular Bilateral Ultrasound 11/14/2024 12:4 5 PM CDT Narrative 11/16/2024 8:18 AM CDT Carotid Duplex Ultrasound Report Patient Name: HODAN LAUGHLIN : 1955 (69y 6m) Study Date: 11/14/2024 12:45:30 PM Gender: M Lithograph Operator: Anneliese DALLAS Location: [place] [address] Ref Provider: FLORENTINO KHOURY Quality: Adequate Order Provider: FLORENTINO KHOURY PROCEDURES: Carotid Report: Carotid duplex examination of the extracranial arteries was performed using 2D, color and spectral Doppler. Blood Pressure: Right: 138/69 mmHg. Left: 144/70 mmHg. INDICATIONS: DM, HTN, HDL and Personal history of TIA and cerebral infarction. MEASUREMENTS: Right Value Left Value RT Prox CCA PSV 69 cm/sec LT Prox CCA PSV 63 cm/sec RT Prox CCA EDV 10 cm/sec LT Prox CCA EDV 7 cm/sec RT Distal CCA PSV 62 cm/sec LT Distal CCA PSV 53 cm/sec RT Distal CCA EDV 14 cm/sec LT Distal CCA EDV 10 cm/sec RT Prox ICA PSV 50 cm/sec LT Prox ICA PSV 65 cm/sec RT Prox ICA EDV 7 cm/sec LT Prox ICA EDV 15 cm/sec RT Mid ICA PSV 79 cm/sec LT Mid ICA PSV 58 cm/sec RT Mid ICA EDV 20 cm/sec LT Mid ICA EDV 13 cm/sec RT Distal ICA PSV 63 cm/sec LT Distal ICA PSV 44 cm/sec RT Distal ICA EDV 16 cm/sec LT Distal ICA EDV 16 cm/sec RT ECA Prx PSV 83 cm/sec LT ECA Prx PSV 63 cm/sec RT ECA Prx EDV 10 cm/sec LT ECA Prx EDV 6 cm/sec RT ICA/CCA 1.14 ratio LT ICA/CCA 1.04 ratio Rt Vert PSV 37 cm/sec Lt Vert PSV 38 cm/sec FINDINGS: Rt Common Carotid Artery: Duplex imaging of the right common carotid artery is within normal limits without evidence of atherosclerotic disease. Rt Internal Carotid Artery: The plaque in the right internal carotid artery appears to be heterogeneous and calcified. Atherosclerotic changes of the right internal carotid artery without hemodynamically significant Doppler findings. <50% stenosis. Rt External Carotid Artery: The right external carotid artery is patent without evidence of atherosclerotic plaque. Rt Vertebral Artery: The right vertebral artery is patent with antegrade flow. Lt Internal Carotid Artery: The plaque in the left internal carotid artery appears to be heterogeneous and calcified. Atherosclerotic changes of the left internal carotid artery without hemodynamically significant Doppler findings. <50% stenosis. Lt External Carotid Artery: The left external carotid artery is patent without evidence of atherosclerotic plaque. Lt Vertebral Artery: The left vertebral artery is patent with antegrade flow. CONCLUSIONS: 1. No evidence of hemodynamically significant disease of the bilateral extracranial carotid system. 2. Normal, antegrade flow is noted in bilateral vertebral arteries. ATTESTATION: I have reviewed and interpreted the pertinent images and measurements of this study. I attest to the conclusions in the final report that is provided above. Electronically Signed By: Leonardo Hannah MD 11/16/2024 7:25:56 AM CDT Procedure Note Leonardo Hannah MD - 11/16/2024 Carotid Duplex Ultrasound Report Patient Name: HODAN LAUGHLIN : 1955 (69y 6m) Study Date: 11/14/2024 12:45:30 PM Gender: M Lithograph Operator: Anneliese DALLAS Location: [id number] Provider: FLORENTINO KHOURY Quality: Adequate Order Provider: FLORENTINO KHOURY PROCEDURES: Carotid Report: Carotid duplex examination of the extracranial arterieswas performed using 2D, color and spectral Doppler. Blood Pressure: Right: 138/69 mmHg. Left: 144/70 mmHg. INDICATIONS: DM, HTN, HDL and Personal history of TIA and cerebral infarction. MEASUREMENTS: Right Value Left Value RT Prox CCA PSV 69 cm/sec LT Prox CCA PSV 63 cm/sec RT Prox CCA EDV 10 cm/sec LT Prox CCA EDV 7 cm/sec RT Distal CCA PSV 62 cm/sec LT Distal CCA PSV 53 cm/sec RT Distal CCA EDV 14 cm/sec LT Distal CCA EDV 10 cm/sec RT Prox ICA PSV 50 cm/sec LT Prox ICA PSV 65 cm/sec RT Prox ICA EDV 7 cm/sec LT Prox ICA EDV 15 cm/sec RT Mid ICA PSV 79 cm/sec LT Mid ICA PSV 58 cm/sec RT Mid ICA EDV 20 cm/sec LT Mid ICA EDV 13 cm/sec RT Distal ICA PSV 63 cm/sec LT Distal ICA PSV 44 cm/sec RT Distal ICA EDV 16 cm/sec LT Distal ICA EDV 16 cm/sec RT ECA Prx PSV 83 cm/sec LT ECA Prx PSV 63 cm/sec RT ECA Prx EDV 10 cm/sec LT ECA Prx EDV 6 cm/sec RT ICA/CCA 1.14 ratio LT ICA/CCA 1.04 ratio Rt Vert PSV 37 cm/sec Lt Vert PSV 38 cm/sec FINDINGS: Rt Common Carotid Artery: Duplex imaging of the right common carotidartery is within normal limits without evidence of atherosclerotic disease. Rt Internal Carotid Artery: The plaque in the right internal carotidartery appears to be heterogeneous and calcified. Atherosclerotic changes of the right internalcarotid artery without hemodynamically significant Doppler findings. <50% stenosis. Rt External Carotid Artery: The right external carotid artery is patentwithout evidence of atherosclerotic plaque. Rt Vertebral Artery: The right vertebral artery is patent with antegradeflow. Lt Internal Carotid Artery: The plaque in the left internal carotid arteryappears to be heterogeneous and calcified. Atherosclerotic changes of the left internalcarotid artery without hemodynamically significant Doppler findings. <50% stenosis. Lt External Carotid Artery: The left external carotid artery is patentwithout evidence of atherosclerotic plaque. Lt Vertebral Artery: The left vertebral artery is patent with antegradeflow. CONCLUSIONS: 1. No evidence of hemodynamically significant disease of the bilateralextracranial carotid system. 2. Normal, antegrade flow is noted in bilateral vertebral arteries. ATTESTATION: I have reviewed and interpreted the pertinent images and measurements ofthis study. I attest to the conclusions in the final report that is provided above. Electronically Signed By: Leonardo Hannah MD 11/16/2024 7:25:56 AM CDT us Florentino Khoury DO IMG US PROCEDURES Final Result * (ABNORMAL) POCT glucose (11/14/2024 10:55 AM CDT) [facility] Signature Glucose, POC 310(H) 70 - 199 mg/dL Comment:Testing performed by : [facility], [address] [place] [address], [place]., [address] Blood 11/14/2024 10:5 5 AM CDT 11/14/2024 10:55 AM CDT us Florentino Khoury DO LAB POCT ORDERABLES - DEVICE Fin al Result LIZZY [facility] Department [place] [address] * eGFR (11/14/2024 8:54 AM CDT) eGFR 80 >=60 mL/min/1. 73 m2 Comment: Interpretive Data Reference Interval Normal >/= [...] was last reviewed 2021. Testing performed by: [address] [address] Blood 11/14/2024 8:54 AM CDT 11/14/2024 9:08 AM CDT Florentino Khoury DO LAB BLOOD ORDERABLES Final Resul t [place] [id number] [facility] Department [place] [address] * (ABNORMAL) CBC without differential (11/14/2024 8:54 AM CDT) Pathologist [facility] WBC 6.61 3.80 - 9.90 K/cumm Comment:Testing performed by : [address] [address] Hgb 12.4(L) 13.0 - 17.5 g/dL LIZZY Comment:Testing performed by : [address] [address] Hct 36.3(L) 38.9 - 50.3 % LIZZY Comment:Testing performed by : [address] [address] Plt 195 150 - 400 K/cumm LIZZY HERRERA Comment:Testing performed by : [address] [address] MPV 10.4 9.1 - 12.3 fL LIZZY Comment:Testing performed by : [address] [address] RBC 4.39 4.30 - 5.80 M/cumm LIZZY Comment:Testing performed by : [address], [address] MCV 82.7 81.3 - 96.4 fL LIZZY Comment:Testing performed by : [address] [address] MCH 28.2 27.1 - 33.3 pg LIZZY Comment:Testing performed by : [address] [address] MCHC 34.2 32.3 - 35.7 g/dL LIZZY Comment:Testing performed by : [address] [address] RDW CV 12.7 11.1 - 14.9 % LIZZY Comment:Testing performed by : [address] [address] RDW SD 38.4 35.7 - 48.1 fL LIZZY Comment:Testing performed by : [address] [address] NRBC abs 0.00 0.00 - 0.01 K/cumm LIZZY Comment:Testing performed by : [address] [address] Blood 11/14/2024 8:54 AM CDT 11/14/2024 9:07 AM CDT Florentino Khoury DO LAB BLOOD ORDERABLES Final Resul t LIZZY HERRERA [address] [facility] Department [place] [address] * (ABNORMAL) Comprehensive metabolic panel (11/14/2024 8:54 AM CDT) Sodium 132(L) 135 - 145 mmol/L Comment:Testing performed by : [address] [address] Potassium, pl 5.5(H) 3.3 - 4.9 mmol/L LIZZY Comment:Testing performed by : [address] [address] Chloride 97 97 - 110 mmol/L [facility] Comment:Testing performed by : [address] [address] CO2 27 22 - 32 mmol/L LIZZY Comment:Testing performed by : [address], [place]., [address] Anion gap 8 2 - 15 mmol/L LIZZY Comment:Testing performed by : [address] [address] BUN 20 6 - 25 mg/dL [facility] Comment:Testing performed by : [address], [place]., [address] Creatinine 1.01 0.80 - 1.30 mg/dL LIZZY Comment:Testing performed by : [address] [address] Glucose 424(H) 70 - 199 mg/dL [facility] Comment: Interpretive Data Fasting glucose >/= 126 mg/dl is diagnostic for diabetes. Fasting is defined as no caloric intake for at least 8 hours. Fasting glucose between 100 mg/dl to 125 mg/dl is diagnostic of prediabetes. In a patient with classic symptoms of hyperglycemia or hyperglycemic crisis, a random glucose >/= 200 mg/dl is diagnostic for diabetes. In the absence of unequivocal hyperglycemia, results should be confirmed by repeat testing. The classification and Diagnosis of Diabetes Diabetes Care 202; 46: S19-S40. Current interpretive data was last revised 2022. Testing performed by: [address] [address] Calcium 9.5 8.5 - 10.3 mg/dL LIZZY Comment:Testing performed by : [address] [address] Bilirubin, total 0.3 0.1 - 1.2 mg/dL LIZZY Comment:Testing performed by : [address] [address] Protein, pl 6.5 6.5 - 8.5 g/dL LIZZY Comment:Testing performed by : [address] [address] Albumin 3.8 3.5 - 5.0 g/dL LIZZY Comment:Testing performed by : [address] [address] Alk phos 81 40 - 130 Units/L LIZZY Comment:Testing performed by : [address] [address] ALT 131(H) 7 - 55 Units/L LIZZY Comment:Testing performed by : [address] [address] AST 91(H) 10 - 50 Units/L LIZZY Comment:Testing performed by : [address] [address] Blood 11/14/2024 8:54 AM CDT 11/14/2024 9:08 AM CDT us Florentino Khoury DO LAB BLOOD ORDERABLES Final Resul t Performing Organization Address [facility] Phone Number [place] [id number] [facility] Department of Laboratories [place], [place] [id number] * POCT glucose (11/14/2024 7:29 AM CDT) Glucose, POC 182 70 - 199 mg/dL Comment:Testing performed by : [address] [address] Blood 11/14/2024 7:29 AM CDT 11/14/2024 7:29 AM CDT us Florentino Khoury DO LAB POCT ORDERABLES - DEVICE Fin al Result Performing Organization Address [facility] Co de Phone Number LIZZY [address] [facility] Department [place] [address] * POCT glucose (11/13/2024 8:11 PM CDT) Glucose, POC 175 70 - 199 mg/dL Comment:Testing performed by : [facility], [address] [place] [address]., [address] Glucose comment 1 RN/MD Notified LIZZY Comment:Testing performed by : [facility], [address] [place] [address]., [address] Blood 11/13/2024 8:11 PM CDT 11/13/2024 8:11 PM CDT Florentino Khoury DO LAB POCT ORDERABLES - DEVICE Fin al Result Performing Organization Address [facility] de Phone Number LIZZY [address] [facility] Department of [employer] [place] [address] * CTA Head Neck W WO Contrast (11/13/2024 6:48 PM CDT) Anatomical Region Laterality Modality Head and Neck N/A Computed Tomogra phy 11/13/2024 8:32 PM CDT Narrative 11/13/2024 9:11 PM CDT EXAM DESCRIPTION: CTA HEAD NECK W WO CONTRAST REASON FOR STUDY: Stroke/TIA, determine embolic source Stroke/TIA, determine embolic source, scan x2 for attempt better enhancement. Early HU trigger TECHNIQUE: Axial images were first obtained through the brain without contrast. Axial dynamic scanning technique with dynamic contrast enhancement through the intracranial and extracranial carotid and vertebral arteries. Multiplanar reconstruction. All stenosis measurements are based on NASCET criteria. 3D MIP images rendered on scanning unit and reviewed at time of interpretation. Automated exposure control was used as a dose optimization technique for this examination. CONTRAST TYPE/DOSE: 92mL of IOVERSOL 350 MG IODINE/ML INTRAVENOUS SYRINGE injected via intravenous COMPARISON: CT brain from 11/12/2024 FINDINGS: INTRACRANIAL VESSELS [place]: The anterior, middle, posterior cerebral arteries are all patent. No evidence of aneurysm or focal stenosis. POSTERIOR CIRCULATION: The distal vertebral arteries are patent as is the basilar artery. No aneurysm. BRAIN: No gross enhancing lesions as visualized. CAROTID CTA RIGHT CAROTIDS: There is an approximately 50-60% stenosis in the proximal right internal carotid artery. LEFT CAROTIDS: No internal, external or common carotid stenosis. LEFT VERTEBRAL: Patent. No significant stenosis. No dissection. RIGHT VERTEBRAL: The right vertebral artery is hypoplastic. No obvious stenosis or dissection was seen. AORTIC ARCH: Left common carotid artery arises from the innominate. Both subclavian arteries are patent. NECK SOFT TISSUE: No mass, adenopathy. No thyroid nodule greater than 1 cm. INCLUDED LUNGS: No acute abnormality. No worrisome nodules. OTHER: No other significant finding. IMPRESSION: INTRACRANIAL CTA: Normal. CAROTID CTA: Approximately 50-60% stenosis in the proximal right internal carotid artery. Carotid Doppler is recommended. The results were called to nurse Arti at approximately 8:50 p.m.. THIS IS AN ELECTRONICALLY VERIFIED FINAL REPORT 11/13/2024 9:11 PM - Electronically signed by Torey Dueñas M.D. ILEANA: ILEANA Report ID: [id number] Reading Location: [id number] Procedure Note Lobito Dueñas MD - 11/13/2024 EXAM DESCRIPTION: CTA HEAD NECK W WO CONTRAST REASON FOR STUDY: Stroke/TIA, determine embolic source Stroke/TIA, determine embolic source, scan x2 for attempt betterenhancement. Early HU trigger TECHNIQUE: Axial images were first obtained through the brain without contrast. Axial dynamic scanning technique with dynamic contrast enhancement throughthe intracranial and extracranial carotid and vertebral arteries. Multiplanar reconstruction. All stenosis measurements are based on NASCET criteria. 3D MIP images rendered on scanning unit and reviewed at time of interpretation. Automated exposure control was used as a dose optimization technique forthis examination. CONTRAST TYPE/DOSE: 92mL of IOVERSOL 350 MG IODINE/ML INTRAVENOUSSYRINGE injected via intravenous COMPARISON: CT brain from 11/12/2024 FINDINGS: INTRACRANIAL VESSELS [place]: The anterior, middle, posterior cerebral arteries areall patent. No evidence of aneurysm or focal stenosis. POSTERIOR CIRCULATION: The distal vertebral arteries are patent as isthe basilar artery. No aneurysm. BRAIN: No gross enhancing lesions as visualized. CAROTID CTA RIGHT CAROTIDS: There is an approximately 50-60% stenosis in theproximal right internal carotid artery. LEFT CAROTIDS: No internal, external or common carotid stenosis. LEFT VERTEBRAL: Patent. No significant stenosis. No dissection. RIGHT VERTEBRAL: The right vertebral artery is hypoplastic. No obvious stenosis or dissection was seen. AORTIC ARCH: Left common carotid artery arises from the innominate.Both subclavian arteries are patent. NECK SOFT TISSUE: No mass, adenopathy. No thyroid nodule greater than 1cm. INCLUDED LUNGS: No acute abnormality. No worrisome nodules. OTHER: No other significant finding. IMPRESSION: INTRACRANIAL CTA: Normal. CAROTID CTA: Approximately 50-60% stenosis in the proximal right internal carotidartery. Carotid Doppler is recommended. The results were called to nurse Chi at approximately 8:50 p.m.. THIS IS AN ELECTRONICALLY VERIFIED FINAL REPORT 11/13/2024 9:11 PM - Electronically signed by Torey Dueñas M.D. ILEANA: ILEANA Report ID: [id number] Reading Location: [place] [address] Key Villanueva MD IMG CT PROCEDURES Fin al Result * (ABNORMAL) POCT glucose (11/13/2024 5:24 PM CDT) [facility] Glucose, POC 321(H) 70 - 199 mg/dL Comment:Testing performed by : [facility], [address] [place] [address]., [address] Blood 11/13/2024 5:24 PM CDT 11/13/2024 5:24 PM CDT Florentino Khoury DO LAB POCT ORDERABLES - DEVICE Fin al Result LIZZY [address] [facility] Department [place] [address] * (ABNORMAL) POCT glucose (11/13/2024 2:23 PM CDT) [facility] Glucose, POC 351(H) 70 - 199 mg/dL Comment:Testing performed by : [address] [address] Glucose comment 1 RN/MD Notified LIZZY Comment:Testing performed by : [address] [address] Blood 11/13/2024 2:23 PM CDT 11/13/2024 2:23 PM CDT [employer] DO LAB POCT ORDERABLES - DEVICE Fin al Result Performing Organization Address [facility] Co de Phone Number [address] [employer] [place], [place] [id number] * (ABNORMAL) POCT glucose (11/13/2024 11:18 AM CDT) [facility] Glucose, POC 439(H) 70 - 199 mg/dL Comment:Testing performed by : [address] [address] Blood 11/13/2024 11:1 8 AM CDT 11/13/2024 11:[address] [facility] PO[facility] ORDERABLES - DEVICE Fin al Result Performing Organization Address [facility] de Phone Number [address] [address] * TRANSTHORACIC ECHO (TTE) COMPLETE W DOPPLER/CF W CONTRAST (11/13/2024 10:12 AM CDT) [facility] Estimated EF 55-60 % CONS SCIMAGE EF Mod BP 57 % CONS SCIMAGE Anatomical Region Laterality Modality Ultrasound 11/13/2024 9:08 AM CDT Narrative 11/13/2024 7:30 PM CDT Transthoracic Echocardiographic Report Patient Name: HODAN LAUGHLIN : 1955 (69y 6m) Gender: M Study Date: 11/13/2024 09:08:58 AM Ht(Inch): 67 Wt(Lb): 164.02 BSA: 1.88 Lithograph Operator: Jing Pickett RDCS Location: [id number] Order Provider: FLORENTINO KHOURY Heart Rate: 74 BMI: 25.69 BP: 177 / 89 Ref Provider: FLORENTINO KHOURY PROCEDURES: Echocardiographic Report: ([id number]) Transthoracic complete echo with contrast, 2D, spectral and tissue Doppler, color flow Doppler, M-mode. Additional Procedures: Agitated saline bubble study. Contrast: A contrast injection of Definity was performed to improve assessment of LV function. Definity Lot Number: [id number]. INDICATIONS: Transient ischemic attack. FINDINGS: Left Ventricle: Normal left ventricular cavity size. Normal Left ventricular wall thickness. Normal left ventricular systolic function. The Ejection Fraction (Guzman's) is measured at 57 %. The Ejection Fraction is visually estimated to be 55-60 %. Diastolic Function E to E' ratio <8 suggesting normal pulmonary wedge pressure and no LV diastolic dysfunction and left ventricular diastolic parameters are consistent with Grade I diastolic dysfunction (normal LA pressure). Right Ventricle: Normal right ventricular size. Normal right ventricular systolic function. Left Atrium: Mildly dilated left atrium. Right Atrium: The right atrium is normal in size. Atrial Septum: Agitated saline bubble study is negative for intracardiac shunt. No shunt by color Doppler. Mitral Valve: Normal mitral valve leaflet structure. There is trace mitral valve regurgitation. No mitral valve stenosis. Aortic Valve: Trileaflet aortic valve. The aortic cusps appear mildly sclerosed. Trace aortic valve regurgitation. No aortic valve stenosis. The aortic valve area by the continuity equation (using Peak Honorio) is 2.7 cm2. Tricuspid Valve: The tricuspid valve demonstrates normal leaflet structure. There is trace tricuspid regurgitation. PASP cannot be evaluated due to lack of adequate TR jet. No tricuspid valve stenosis. Pulmonic Valve: Pulmonic Valve not well visualized due to poor echo windows. There is trace pulmonic regurgitation. No stenosis present. Aorta: Normal aortic root. The aortic sinus is normal in size. The ascending aorta is normal in size. IVC: IVC is normal in size. IVC Collapses normally with inspiration. The estimated RA pressure is 3 mmHg. CONCLUSIONS: 1. Normal left ventricular cavity size. Normal Left ventricular wall thickness. Normal left ventricular systolic function. The Ejection Fraction (Guzman's) is measured at 57 %. The Ejection Fraction is visually estimated to be 55-60 %. Diastolic Function E to E' ratio <8 suggesting normal pulmonary wedge pressure and no LV diastolic dysfunction and left ventricular diastolic parameters are consistent with Grade I diastolic dysfunction (normal LA pressure). 2. Agitated saline bubble study is negative for intracardiac shunt. No shunt by color Doppler. 3. Compared to echo 07/09/2022, no significant change. MEASUREMENTS: 2D/MM Value Range Doppler Value LVIDd 2D 4.27 cm [ 3.50 - 5.70 ] AV Peak Honorio 1.09 m/s LVIDs 2D 2.76 cm [ 3.10 - 4.60 ] AV Peak PG 4.75 mmHg IVSd 2D 0.93 cm [ 0.60 - 1.20 ] LVOT Peak Honorio 0.85 m/s LVPWd 2D 0.91 cm [ 0.60 - 1.10 ] LVOT Peak PG 2.89 mmHg LV Thickness Ratio 1.02 LVOT Diam 2.10 cm LV Mass 2D 128.09 g DARRIUS Vmax 2.70 cm2 LV Mass Index 2D 68.13 g/m2 MV E Peak Honorio 0.55 m/s RWT 0.43 MV A Peak Honorio 0.84 m/s EDV Mod BP 71.70 ml [ 62.00 - 150.00 ] MV E/A 0.70 ratio LV EDV Index 38.14 ml/m2 MV Decel Time 283.00 msec ESV Mod BP 31.20 ml [ 21.00 - 61.00 ] Med E` Honorio 7.62 cm/sec EF Mod BP 57 % [ 52 - 72 ] Lat E` Honorio 9.90 cm/sec Visually Estimated EF 55-60 % Average E/E` 6.28 LA Dimension 2D 4.10 cm [ 1.90 - 4.00 ] RV S` 12.90 cm/sec LA Length 2C 5.21 cm RA Pressure 3.00 mmHg LA Length 4C 4.54 cm PV Peak Honorio 0.89 m/s LA Volume BP 43.30 ml PV Peak PG 3.17 mmHg LA Volume Index 23.03 ml/m2 [ 16.00 - 34.00 ] AoR Diam 2D 3.20 cm [ 2.00 - 3.70 ] Ao Root Index 1.70 cm/m2 [ 1.00 - 2.00 ] Asc Ao Diam 2D 3.40 cm Asc Ao Index 1.81 cm/m2 - ATTESTATION: I have reviewed and interpreted the pertinent images and measurements of this study. I attest to the conclusions in the final report that is provided above. DISCLAIMER: The study images and the final report will be retained in the patient chart by the Echo Laboratory for the legally required time period. This chart constitutes the legal record of any testing performed. Electronically Signed By: Butch Hines MD 11/13/2024 7:30:14 PM CDT Procedure Note Butch Hines MD - 11/13/2024 Transthoracic Echocardiographic Report Patient Name: HODAN LAUGHLIN : 1955 (69y 6m) Gender: M Study Date: 11/13/2024 09:08:58 AM Ht(Inch): 67 Wt(Lb): 164.02 BSA: 1.88 Lithograph Operator: Jing Pickett ARLENE Location: [id number] Order Provider:FLORENTINO KHOURY Heart Rate: 74 BMI: 25.69 BP: 177 / 89 Ref Provider: FLORENTINO KHOURY PROCEDURES: Echocardiographic Report: ([id number]) Transthoracic complete echo withcontrast, 2D, spectral and tissue Doppler, color flow Doppler, M-mode. Additional Procedures: Agitated saline bubble study. Contrast: A contrast injection of Definity was performed to improveassessment of LV function. Definity Lot Number: [id number]. INDICATIONS: Transient ischemic attack. FINDINGS: Left Ventricle: Normal left ventricular cavity size. Normal Leftventricular wall thickness. Normal left ventricular systolic function. The EjectionFraction (Guzman's) is measured at 57 %. The Ejection Fraction is visually estimated to be55-60 %. Diastolic Function E to E' ratio <8 suggesting normal pulmonary wedge pressure andno LV diastolic dysfunction and left ventricular diastolic parameters are consistent withGrade I diastolic dysfunction (normal LA pressure). Right Ventricle: Normal right ventricular size. Normal right ventricularsystolic function. Left Atrium: Mildly dilated left atrium. Right Atrium: The right atrium is normal in size. Atrial Septum: Agitated saline bubble study is negative for intracardiacshunt. No shunt by color Doppler. Mitral Valve: Normal mitral valve leaflet structure. There is trace mitralvalve regurgitation. No mitral valve stenosis. Aortic Valve: Trileaflet aortic valve. The aortic cusps appear mildlysclerosed. Trace aortic valve regurgitation. No aortic valve stenosis. The aortic valvearea by the continuity equation (using Peak Honorio) is 2.7 cm2. Tricuspid Valve: The tricuspid valve demonstrates normal leafletstructure. There is trace tricuspid regurgitation. PASP cannot be evaluated due to lack ofadequate TR jet. No tricuspid valve stenosis. Pulmonic Valve: Pulmonic Valve not well visualized due to poor echowindows. There is trace pulmonic regurgitation. No stenosis present. Aorta: Normal aortic root. The aortic sinus is normal in size. Theascending aorta is normal in size. IVC: IVC is normal in size. IVC Collapses normally with inspiration. Theestimated RA pressure is 3 mmHg. CONCLUSIONS: 1. Normal left ventricular cavity size. Normal Left ventricular wallthickness. Normal left ventricular systolic function. The Ejection Fraction (Guzman's) ismeasured at 57 %. The Ejection Fraction is visually estimated to be 55-60 %. DiastolicFunction E to E' ratio <8 suggesting normal pulmonary wedge pressure and no LV diastolicdysfunction and left ventricular diastolic parameters are consistent with Grade Idiastolic dysfunction (normal LA pressure). 2. Agitated saline bubble study is negative for intracardiac shunt. Noshunt by color Doppler. 3. Compared to echo 07/09/2022, no significant change. MEASUREMENTS: 2D/MM Value Range DopplerValue LVIDd 2D 4.27 cm [ 3.50 - 5.70 ] AV Peak Vel1.09 m/s LVIDs 2D 2.76 cm [ 3.10 - 4.60 ] AV Peak PG4.75 mmHg IVSd 2D 0.93 cm [ 0.60 - 1.20 ] LVOT PeakVel 0.85 m/s LVPWd 2D 0.91 cm [ 0.60 - 1.10 ] LVOT Peak PG2.89 mmHg LV Thickness Ratio 1.02 LVOT Diam2.10 cm LV Mass 2D 128.09 g DARRIUS Vmax2.70 cm2 LV Mass Index 2D 68.13 g/m2 MV E PeakVel 0.55 m/s RWT 0.43 MV A PeakVel 0.84 m/s EDV Mod BP 71.70 ml [ 62.00 - 150.00 ] MV E/A0.70 ratio LV EDV Index 38.14 ml/m2 MV DecelTime 283.00 msec ESV Mod BP 31.20 ml [ 21.00 - 61.00 ] Med E` Vel7.62 cm/sec EF Mod BP 57 % [ 52 - 72 ] Lat E` Vel9.90 cm/sec Visually Estimated EF 55-60 % Average E/E`6.28 LA Dimension 2D 4.10 cm [ 1.90 - 4.00 ] RV S`12.90 cm/sec LA Length 2C 5.21 cm RA Pressure3.00 mmHg LA Length 4C 4.54 cm PV Peak Vel0.89 m/s LA Volume BP 43.30 ml PV Peak PG3.17 mmHg LA Volume Index 23.03 ml/m2 [ 16.00 - 34.00 ] AoR Diam 2D 3.20 cm [ 2.00 - 3.70 ] Ao Root Index 1.70 cm/m2 [ 1.00 - 2.00 ] Asc Ao Diam 2D3.40 cm Asc Ao Index1.81 cm/m2 - ATTESTATION: I have reviewed and interpreted the pertinent images and measurements ofthis study. I attest to the conclusions in the final report that is provided above. DISCLAIMER: The study images and the final report will be retained in the patientchart by the Echo Laboratory for the legally required time period. This chart constitutesthe legal record of any testing performed. Electronically Signed By: Butch Hines MD 11/13/2024 7:30:14 PM CDT us Florentino Khoury DO CV ECHO PROCEDURES Final Result * eGFR (11/13/2024 8:48 AM CDT) eGFR >90 >=60 mL/min/1. 73 m2 Comment: Interpretive Data Reference Interval Normal >/= [...] of Race in Diagnosing Kidney Disease, JASN 2021). The CKD-EPI equation should not be used for patients with unstable renal function and has not been validated in children and those over 70. Current interpretive data was last reviewed 2021. Testing performed by: [facility], [address] [place] [address], [place]., [address] Blood 11/13/2024 8:48 AM CDT 11/13/2024 9:03 AM CDT us Florentino Khoury DO LAB BLOOD ORDERABLES Final Resul t LIZZY [address] [facility] Department [place] [address] * CBC without differential (11/13/2024 8:48 AM CDT) WBC 6.88 3.80 - 9.90 K/cumm Comment:Testing performed by : [address] [address] Hgb 13.1 13.0 - 17.5 g/dL LIZZY Comment:Testing performed by : [address], [address] Hct 39.0 38.9 - 50.3 % LIZZY Comment:Testing performed by : [address] [address] Plt 225 150 - 400 K/cumm LIZZY Comment:Testing performed by : [address] [address] MPV 10.4 9.1 - 12.3 fL LIZZY Comment:Testing performed by : [address], [address] RBC 4.66 4.30 - 5.80 M/cumm LIZZY Comment:Testing performed by : [address] [address] MCV 83.7 81.3 - 96.4 fL LIZZY Comment:Testing performed by : [address] [address] MCH 28.1 27.1 - 33.3 pg LIZZY Comment:Testing performed by : [address] [address] MCHC 33.6 32.3 - 35.7 g/dL LIZZY Comment:Testing performed by : [address], [address] RDW CV 12.7 11.1 - 14.9 % LIZZY Comment:Testing performed by : [address] [address] RDW SD 38.5 35.7 - 48.1 fL LIZZY Comment:Testing performed by : [address] [address] NRBC abs 0.00 0.00 - 0.01 K/cumm LIZZY Comment:Testing performed by : [address] [address] Blood 11/13/2024 8:48 AM CDT 11/13/2024 9:03 AM CDT Florentino Khoury DO LAB BLOOD ORDERABLES Final Resul t LIZZY [address] [facility] Department [place] [address] * (ABNORMAL) Comprehensive metabolic panel (11/13/2024 8:48 AM CDT) Sodium 132(L) 135 - 145 mmol/L Comment:Testing performed by : [address] [address] Potassium, pl 4.9 3.3 - 4.9 mmol/L LIZZY Comment:Testing performed by : [address] [address] Chloride 95(L) 97 - 110 mmol/L LIZZY Comment:Testing performed by : [address] [address] CO2 27 22 - 32 mmol/L LIZZY Comment:Testing performed by : [address] [address] Anion gap 10 2 - 15 mmol/L LIZZY Comment:Testing performed by : [address] [address] BUN 18 6 - 25 mg/dL LIZZY Comment:Testing performed by : [address] [address] Creatinine 0.87 0.80 - 1.30 mg/dL LIZZY Comment:Testing performed by : [address] [address] Glucose 430(H) 70 - 199 mg/dL LIZZY Comment: Delta - Results Reviewed Interpretive Data Fasting glucose >/= 126 mg/dl is diagnostic for diabetes. Fasting is defined as no caloric intake for at least 8 hours. Fasting glucose between 100 mg/dl to 125 mg/dl is diagnostic of prediabetes. In a patient with classic symptoms of hyperglycemia or hyperglycemic crisis, a random glucose >/= 200 mg/dl is diagnostic for diabetes. In the absence of unequivocal hyperglycemia, results should be confirmed by repeat testing. The classification and Diagnosis of Diabetes Diabetes Care 2021; 46: S19-S40. Current interpretive data was last revised 2022. Testing performed by: [address] [address] Calcium 9.6 8.5 - 10.3 mg/dL LIZZY Comment:Testing performed by : [address] [address] Bilirubin, total 0.4 0.1 - 1.2 mg/dL LIZZY Comment:Testing performed by : [address] [address] Protein, pl 6.7 6.5 - 8.5 g/dL LIZZY Comment:Testing performed by : [address] [address] Albumin 4.0 3.5 - 5.0 g/dL LIZZY Comment:Testing performed by : [address] [address] [address] Alk phos 84 40 - 130 Units/L LIZZY Comment:Testing performed by : [address] [address] ALT 138(H) 7 - 55 Units/L LIZZY Comment:Testing performed by : [address] [address] AST 86(H) 10 - 50 Units/L LIZZY Comment:Testing performed by : [address] [address] Blood 11/13/2024 8:48 AM CDT 11/13/2024 9:03 AM CDT us Florentino Khoury DO LAB BLOOD ORDERABLES Final Resul t LIZZY [address] [facility] Department of Laboratories [place], [place] [id number] * (ABNORMAL) POCT glucose (11/13/2024 7:49 AM CDT) Pathologist [facility] Glucose, POC 318(H) 70 - 199 mg/dL Comment:Testing performed by : [address] [address] Glucose comment 1 RN/MD Notified LIZZY Comment:Testing performed by : [address] [address] Blood 11/13/2024 7:49 AM CDT 11/13/2024 7:49 AM CDT Florentino Khoury DO LAB POCT ORDERABLES - DEVICE Fin al Result Performing Organization Address [facility] Co de Phone Number [address] [employer] [place] [address] * (ABNORMAL) Hemoglobin A1c (11/13/2024 4:42 AM CDT) [facility] Hgb A1C 8.2(H) 4.0 - 5.6 % Comment:Testing performed by : [address] [address] Estimated Average Glucose 189 mg/dL LIZZY Comment: The ADA recommends reporting an estimated Average Glucose (eAG) with all Hemoglobin A1c results using the equation derived from a study of 507 normal and diabetic adults. Minority populations were underrepresented and children were not included. (Diabetes Care 31:0839-2615, 2008). The eAG is not equivalent to a fasting glucose. Testing performed by: [address] [address] Blood 11/13/2024 4:42 AM CDT 11/13/2024 6:07 AM CDT Florentino Khoury DO LAB BLOOD ORDERABLES Final Resul t Performing Organization Address [facility] Co de Phone Number [address] [place] [address] * (ABNORMAL) Lipid panel (11/13/2024 4:42 AM CDT) Cholesterol 134 30 - 199 mg/dL Comment: Interpretive Data Ages < or = [...] last revised on 2018. Testing performed by: [address] [address] Triglycerides 168(H) <=149 mg/dL LIZZY Comment: Interpretive Data Ages [...] Pediatrics 2011;128:S213 2. NCEP Expert Panel. Circulation 2003;110:227 Current Interpretive Data was last revised on 2018. Testing performed by: [address] [address] HDL 39(L) >=40 mg/dL LIZZY Comment: Interpretive Data Ages [...] last revised on 2018. Testing performed by: [address] [address] LDL, calculated 66 <=129 mg/dL LIZZY HERRERA Comment: Interpretive Data Ages < or = 19 years Acceptable: <110 mg/dL Borderline high: 110-129 mg/dL High: >or= 130 mg/dL Ages > or = 20 years Optimal: <100 mg/dL Near optimal: 100-129 mg/dL Borderline high: 130-159 mg/dL High: >160 mg/dL Calculated using the Mike LDL-C estimating equation. This equation was implemented on 2024. Prior to this date LDL-C was estimated using the Friedewald equation. Literature References: 1. Expert Panel on Integrated Guidelines for Cardiovascular Health and Risk Reduction in Children and Adolescents. Pediatrics 2011;128:S213 2. NCEP Expert Panel. Circulation 2004;110:227 3. Mike Jade et al. LINA Cardiol. 2020 October 01;5(5):540-548. doi: 10.1001/jamacardio.2020.0013 Current Interpretive Data was last revised on 2024. Testing performed by: [address] [address] Non-HDL Cholesterol 95 mg/dL LIZZY Comment: Interpretive Data Ages < [...] last revised on 2018. Testing performed by: [address] [address] Chol/HDL ratio 3 LIZZY Comment:Testing performed by : [address] [address] Blood 11/13/2024 4:42 AM CDT 11/13/2024 6:06 AM CDT Florentino Khoury DO LAB BLOOD ORDERABLES Final Resul t Performing Organization Address [facility] Co de Phone Number LIZZY [address] [place] [address] * (ABNORMAL) POCT glucose (11/12/2024 10:18 PM CDT) Glucose, POC 342(H) 70 - 199 mg/dL Comment:Testing performed by : [address] [address] Glucose comment 1 RN/MD Notified LIZZY HERRERA Comment:Testing performed by : [address] [address] Glucose comment 2 Use This Result LIZZY HERRERA Comment:Testing performed by : [address] [address] Blood 11/12/2024 10:1 8 PM CDT 11/12/2024 10:18 PM CDT Florentino Khoury [employer] LAB POCT ORDERABLES - DEVICE Fin al Result Performing Organization Address [facility] Co de Phone Number LIZZY [facility] [place] [address] * MRI Brain WO Contrast (11/12/2024 8:05 PM CDT) Anatomical Region Laterality Modality Head and Neck N/A Magnetic Resonan ce 11/12/2024 9:03 PM CDT Narrative 11/12/2024 9:13 PM CDT EXAM DESCRIPTION: MRI BRAIN WO CONTRAST REASON FOR STUDY: Neuro deficit, acute, stroke suspected, Possible stroke 1 y.o. male with a PMHx significant for IDDM, seizure, hypertension, hld. Presents to the ED with a chief complaint of dizziness, blurry vision. Patient states that he was in his usual state of health this morning, was out shopping at the [employer], when he returned home he suddenly felt very dizzy, weak with blurry vision. He checked his sugar and it was in the 50's, he ate some crackers and then called EMS, and was brought here. He reports a hx of macular degeneration in his L eye, but today noted blurry vision in both eyes. He denies any other focal neurologic deficits, weakness, sensory changes. Currently he still reports a headache, and some dizziness but has improved from before. TECHNIQUE: Multiplanar imaging includes non-contrasted T1, T2, FLAIR, and diffusion with ADC map sequences. Additional sequence(s) sensitive to blood products. Images stored on PACS. COMPARISON: MRI brain comparison 07/09/2022. FINDINGS: CEREBRUM: No hemorrhage, edema, or mass effect. No abnormality on blood sensitive susceptibility weighted images is seen to indicate hemosiderin or other chronic blood breakdown product. Small T2 hyperintense focus in the posterior right thalamus possibly indicating lacunar infarct. This is not acute on today's exam but is new from prior. WHITE MATTER: Patchy low density of white matter in periventricular regions in keeping with microvascular change, relatively mild. POSTERIOR FOSSA: Of the mid kyung. Brainstem and cerebellum otherwise appear unremarkable. DIFFUSION IMAGING: No recent infarction. EXTRAAXIAL SPACES: No hemorrhage. No mass. BRAIN VOLUME: Within normal limits for age. PITUITARY: Unremarkable. VASCULATURE: No flow disturbance identified. ORBITS: No masses. Globes normal. Bilateral lens extractions. PARANASAL SINUSES AND MASTOIDS: Retention cysts or polyps along the right maxillary floor. No acute OTHER: No other significant finding. IMPRESSION: 1. No acute intracranial finding. 2. Mild microvascular change of periventricular white matter. 3. Small lacunar infarct of the posterior right thalamus, new from prior but not acute on today's exam. THIS IS AN ELECTRONICALLY VERIFIED FINAL REPORT 11/12/2024 9:13 PM - Electronically signed by Gabe Paredes M.D. LC: TOM Report ID: [id number] Reading Location: [id number] Procedure Note Justyna Paredes MD - 11/12/2024 EXAM DESCRIPTION: MRI BRAIN WO CONTRAST REASON FOR STUDY: Neuro deficit, acute, stroke suspected, Possiblestroke 1 y.o. male with a PMHx significant for IDDM, seizure, hypertension, hld. Presents to the ED with a chief complaint of dizziness, blurry vision.Patient states that he was in his usual state of health this morning, was outshopping at the [facility], when he returned home he suddenly felt verydizzy, weak with blurry vision. He checked his sugar and it was in the 50's, heate some crackers and then called EMS, and was brought here. He reports a hxof macular degeneration in his L eye, but today noted blurry vision in both eyes. He denies any other focal neurologic deficits, weakness, sensory changes. Currently he still reports a headache, and some dizziness but has improved from before. TECHNIQUE: Multiplanar imaging includes non-contrasted T1, T2, FLAIR, and diffusion with ADC map sequences. Additional sequence(s) sensitive [employer]. Images stored on PACS. COMPARISON: MRI brain comparison 07/09/2022. FINDINGS: CEREBRUM: No hemorrhage, edema, or mass effect. Noabnormality on blood sensitive susceptibility weighted images is seen to indicate hemosiderin or other chronic blood breakdown product. Small [id number] focus in the posterior right thalamus possibly indicating lacunar infarct. This is not acute on today's exam but is new from prior. WHITE MATTER: Patchy low density of white matter in periventricularregions in keeping with microvascular change, relatively mild. POSTERIOR FOSSA: Of the mid kyung. Brainstem and cerebellum otherwiseappear unremarkable. DIFFUSION IMAGING: No recent infarction. EXTRAAXIAL SPACES: No hemorrhage. No mass. BRAIN VOLUME: Within normal limits for age. PITUITARY: Unremarkable. VASCULATURE: No flow disturbance identified. ORBITS: No masses. Globes normal. Bilateral lens extractions. PARANASAL SINUSES AND MASTOIDS: Retention cysts or polyps along theright maxillary floor. No acute OTHER: No other significant finding. IMPRESSION: 1. No acute intracranial finding. 2. Mild microvascular change of periventricular white matter. 3. Small lacunar infarct of the posterior right thalamus, new from priorbut not acute on today's exam. THIS IS AN ELECTRONICALLY VERIFIED FINAL REPORT 11/12/2024 9:13 PM - Electronically signed by Gabe Paredes M.D. LC: TOM Report ID: [id number] Reading Location: [id number] Florentino Khoury DO IMG MRI PROCEDURES Final Result * POCT glucose (11/12/2024 6:15 PM CDT) Glucose, POC 143 70 - 199 mg/dL Comment:Testing performed by : [address] [address] Glucose comment 1 RN/MD Notified LIZZY Comment:Testing performed by : [address] [address] Blood 11/12/2024 6:15 PM CDT 11/12/2024 6:15 PM CDT Florentino Khoury DO LAB POCT ORDERABLES - DEVICE Fin al Result Performing Organization Address [facility] Co de Phone Number LIZZY [address] [place] [address] * POCT glucose (11/12/2024 4:43 PM CDT) Glucose, POC 97 70 - 199 mg/dL Comment:Testing performed by : [address] [address] Glucose comment 1 RN/MD Notified LIZZY Comment:Testing performed by : [address] [address] Blood 11/12/2024 4:43 PM CDT 11/12/2024 4:43 PM CDT Patricio Ingram MD LAB POCT ORDERABLES - DEVICE Fi nal Result Performing Organization Address City/[facility]/ZIP Co de Phone Number [address] [employer] [place] [address] * CT Head WO Contrast (11/12/2024 4:29 PM CDT) Anatomical Region Laterality Modality Head and Neck N/A Computed Tomogra phy 11/12/2024 4:35 PM CDT Narrative 11/12/2024 4:40 PM CDT EXAM DESCRIPTION: CT HEAD WO CONTRAST REASON FOR STUDY: dizziness dizzy at home, checked blood sugar - 50's. Ate 6 glucose tabs. Upon EMS arrival to home, blood sugar 109, upon arrival to ED blood sugar 160. Denies dizziness. States I just have a headache now reports did not eat breakfast but gave self insulin. Hx CVA with vision loss left ey TECHNIQUE: Axial images acquired through the brain without intravenous contrast. Images stored on PACS. Automated exposure control was used as a dose optimization technique for this examination. COMPARISON: Head CT 07/08/2022. FINDINGS: BRAIN: No hemorrhage, edema or mass effect. No recent infarct. Tiny small old appearing infarct in the right thalamus, new from prior. Prior. EXTRA-AXIAL SPACES: No fluid collections. No masses. CALVARIUM: No fracture. SINUSES/MASTOIDS: Chronic appearing right maxillary sinusitis. ORBITS: No significant abnormality. OTHER: No other significant abnormality. IMPRESSION: No acute intracranial findings. Chronic appearing right maxillary sinusitis. THIS IS AN ELECTRONICALLY VERIFIED FINAL REPORT 11/12/2024 4:40 PM - Electronically signed by Gabe Paredes M.D. LC: TOM Report ID: [id number] Reading Location: [id number] Procedure Note Justyna Paredes MD - 11/12/2024 EXAM DESCRIPTION: CT HEAD WO CONTRAST REASON FOR STUDY: dizziness dizzy at home, checked blood sugar - 50's. Ate 6 glucose tabs. Upon EMS arrival to home, blood sugar 109, upon arrival to ED blood sugar 160.Denies dizziness. States I just have a headache now reports did not eatbreakfast but gave self insulin. Hx CVA with vision loss left ey TECHNIQUE: Axial images acquired through the brain without intravenous contrast. Images stored on PACS. Automated exposure control was used asa dose optimization technique for this examination. COMPARISON: Head CT 07/08/2022. FINDINGS: BRAIN: No hemorrhage, edema or mass effect. No recent infarct. Tiny small old appearing infarct in the right thalamus, new from prior. Prior. EXTRA-AXIAL SPACES: No fluid collections. No masses. CALVARIUM: No fracture. SINUSES/MASTOIDS: Chronic appearing right maxillary sinusitis. ORBITS: No significant abnormality. OTHER: No other significant abnormality. IMPRESSION: No acute intracranial findings. Chronic appearing rightmaxillary sinusitis. THIS IS AN ELECTRONICALLY VERIFIED FINAL REPORT 11/12/2024 4:40 PM - Electronically signed by Gabe Paredes M.D. LC: TOM Report ID: [id number] Reading Location: [place] [address] Rehab Juan Jose NAZARIO IMG CT PROCEDURES Final Result * POCT glucose (11/12/2024 2:30 PM CDT) Glucose, POC 149 70 - 199 mg/dL Comment:Testing performed by : [address] [address] Glucose comment 1 RN/MD Notified LIZZY Comment:Testing performed by : [address] [address] Blood 11/12/2024 2:30 PM CDT 11/12/2024 2:30 PM CDT Rehab Juan Jose NAZARIO LAB POCT ORDERABLES - DEVICE Fi nal Result [facility] [address] [facility] Department [place] [address] * POCT glucose (11/12/2024 1:45 PM CDT) Glucose, POC 143 70 - 199 mg/dL Comment:Testing performed by : [address] [address] Glucose comment 1 RN/ Notified LIZZY Comment:Testing performed by : [address] [address] Blood 11/12/2024 1:45 PM CDT 11/12/2024 1:45 PM CDT Notinfile Unknown LAB POCT ORDERABLES - DEVICE F inal Result Performing Organization Address [facility] de Phone Number LIZZY [facility]6 [facility] [place] [address] * eGFR (11/12/2024 1:44 PM CDT) eGFR 65 >=60 mL/min/1. 73 m2 Comment: Interpretive Data Reference Interval Normal >/= [...] was last reviewed 2021. Testing performed by: [address] [address] Blood 11/12/2024 1:44 PM CDT 11/12/2024 1:55 PM CDT us Gregorioab Juan Jose NAZARIO LAB BLOOD ORDERABLES Final Resu lt Performing Organization Address [facility]/ZIP Co de Phone Number LIZZY [address] [facility] [place], [place] [id number] * (ABNORMAL) Differential, auto (11/12/2024 1:44 PM CDT) Neutrophil abs 9.62(H) 1.50 - 6.50 K/cumm Comment:Testing performed by : [address] [address] Imm gran abs 0.15(H) 0.00 - 0.10 K/cumm [facility] Comment:Testing performed by : [address] [address] Lymphocyte abs 1.22 0.80 - 3.30 K/cumm [facility] Comment:Testing performed by : [address] [address] Monocyte abs 0.80 0.20 - 0.80 K/cumm [facility] Comment:Testing performed by : [address], [place]., [address] Eosinophil abs 0.07 0.00 - 0.50 K/cumm [facility] Comment:Testing performed by : [address] [address] Basophil abs 0.08 0.00 - 0.10 K/cumm [facility] Comment:Testing performed by : [address] [address] Neutrophil pct 80.5 % [facility] Comment: Interpretive Data Percent cell count reference ranges are not reported, since discordance with absolute values may lead to misinterpretation of CBC data. Current Interpretive Data was last revised on 2017. Testing performed by: [address] [address] Imm gran pct 1.3 % [facility] Comment: Interpretive Data Percent cell count reference ranges are not reported, since discordance with absolute values may lead to misinterpretation of CBC data. Current Interpretive Data was last revised on 2017. Testing performed by: [address] [address] Lymphocyte pct 10.2 % [facility] Comment: Interpretive Data Percent cell count reference ranges are not reported, since discordance with absolute values may lead to misinterpretation of CBC data. Current Interpretive Data was last revised on 2017. Testing performed by: [address] [address] Monocyte pct 6.7 % [facility] Comment: Interpretive Data Percent cell count reference ranges are not reported, since discordance with absolute values may lead to misinterpretation of CBC data. Current Interpretive Data was last revised on 2017. Testing performed by: [address] [address] Eosinophil pct 0.6 % LIZZY HERRERA Comment: Interpretive Data Percent cell count reference ranges are not reported, since discordance with absolute values may lead to misinterpretation of CBC data. Current Interpretive Data was last revised on 2017. Testing performed by: [address] [address] Basophil pct 0.7 % LIZZY HERRERA Comment: Interpretive Data Percent cell count reference ranges are not reported, since discordance with absolute values may lead to misinterpretation of CBC data. Current Interpretive Data was last revised on 2017. Testing performed by: [address] [address] Blood 11/12/2024 1:44 PM CDT 11/12/2024 1:55 PM CDT Rehab Juan Jose NAZARIO LAB BLOOD ORDERABLES Final Resu lt LIZZY [facility]4 [facility] Department [place] [address] * (ABNORMAL) CBC with auto differential (11/12/2024 1:44 PM CDT) WBC 11.94(H) 3.80 - 9.90 K/cumm Comment:Testing performed by : [address] [address] Hgb 13.0 13.0 - 17.5 g/dL LIZZY HERRERA Comment:Testing performed by : [address] [address] Hct 37.6(L) 38.9 - 50.3 % LIZZY HERRERA Comment:Testing performed by : [address] [address] Plt 222 150 - 400 K/cumm LIZZY HERRERA Comment:Testing performed by : [address] [address] MPV 10.5 9.1 - 12.3 fL LIZZY HERRERA Comment:Testing performed by : [address] [address] RBC 4.60 4.30 - 5.80 M/cumm LIZZY HERRERA Comment:Testing performed by : [address] [address] MCV 81.7 81.3 - 96.4 fL LIZZY HERRERA Comment:Testing performed by : [address] [address] MCH 28.3 27.1 - 33.3 pg LIZZY HERRERA Comment:Testing performed by : [address] [address] MCHC 34.6 32.3 - 35.7 g/dL LIZZY HERRERA Comment:Testing performed by : [address], [address] RDW CV 12.8 11.1 - 14.9 % LIZZY HERRERA Comment:Testing performed by : [address], [address] RDW SD 37.7 35.7 - 48.1 fL LIZZY Comment:Testing performed by : [address] [address] NRBC abs 0.00 0.00 - 0.01 K/cumm LIZZY Comment:Testing performed by : [address] [address] Blood 11/12/2024 1:44 PM CDT 11/12/2024 1:55 PM CDT us Rehab Juan Jose NAZARIO LAB BLOOD ORDERABLES Final Resu lt LIZZY [address] [facility] Department [place] [address] * (ABNORMAL) Comprehensive metabolic panel (11/12/2024 1:44 PM CDT) Sodium 135 135 - 145 mmol/L Comment:Testing performed by : [address] [address] Potassium, pl 4.9 3.3 - 4.9 mmol/L LIZZY HERRERA Comment: Hemolyzed; Potassium value may be falsely elevated by as much as 1.0 mmol/L. Suggest redraw and reanalysis. Testing performed by: [facility], [address] [place] [address]., [address] Chloride 96(L) 97 - 110 mmol/L [facility] Comment:Testing performed by : [address], [place]., [address] CO2 23 22 - 32 mmol/L LIZZY Comment:Testing performed by : [address] [address] Anion gap 16(H) 2 - 15 mmol/L LIZZY Comment:Testing performed by : [address] [address] BUN 18 6 - 25 mg/dL [facility] Comment:Testing performed by : [address], [place]., [address] Creatinine 1.20 0.80 - 1.30 mg/dL [facility] Comment:Testing performed by : [address] [address] Glucose 132 70 - 199 mg/dL [facility] Comment: Interpretive Data Fasting glucose >/= 126 mg/dl is diagnostic for diabetes. Fasting is defined as no caloric intake for at least 8 hours. Fasting glucose between 100 mg/dl to 125 mg/dl is diagnostic of prediabetes. In a patient with classic symptoms of hyperglycemia or hyperglycemic crisis, a random glucose >/= 200 mg/dl is diagnostic for diabetes. In the absence of unequivocal hyperglycemia, results should be confirmed by repeat testing. The classification and Diagnosis of Diabetes Diabetes Care 2021; 46: S19-S40. Current interpretive data was last revised 2022. Testing performed by: [address] [address] Calcium 9.5 8.5 - 10.3 mg/dL LIZZY Comment:Testing performed by : [address] [address] Bilirubin, total 0.2 0.1 - 1.2 mg/dL [facility] Comment:Testing performed by : [address] [address] Protein, pl 6.8 6.5 - 8.5 g/dL LIZZY HERRERA Comment:Testing performed by : [facility], [address] [place] [address]., [address] Albumin 4.1 3.5 - 5.0 g/dL LIZZY HERRERA Comment:Testing performed by : [address] [address] Alk phos 81 40 - 130 Units/L LIZZY Comment:Testing performed by : [address], [address] ALT 121(H) 7 - 55 Units/L LIZZY Comment:Testing performed by : [address] [address] AST 89(H) 10 - 50 Units/L LIZZY Comment:Testing performed by : [address], [address] Blood 11/12/2024 1:44 PM CDT 11/12/2024 1:55 PM CDT us Rehab Juan Jose NAZARIO LAB BLOOD ORDERABLES Final Resu lt [facility] [address] [facility] Department [place] [address] from Last 3 Months Insurance [employer] MED[employer]ARE HMO [employer] MED[employer]ARE HMO Advance Directives For more information, please contact: [phone] * Full Code (Latest Code Status on File) Date Activated Date Inactivated Comments 11/12/2024 6:54 PM 11/16/2024 6:32 PM * Full Code Date Activated Date Inactivated Comments 07/08/2022 5:19 AM 07/09/2022 10:08 PM Care Teams Pediatrician Managing Partner Relationship Specialty Start Date End Date Ady Wallis MD [facility] [address] [address] PCP - General Family Medicine 01/01/25 Miscellaneous, Not In File 07/09/22
[2025-01-13 13:34] LABS: Alanine Aminotransferase 101 U/L (6-50); Albumin Level 4.1 g/dL (3.5-5.1); Alkaline Phosphatase 79 U/L (38-126); Anion Gap 13 mmol/L (4-12); Aspartate Amino Transferase 74 U/L (17-59); Bilirubin,Total 0.3 mg/dL (0.2-1.3); Blood Urea Nitrogen 21 mg/dL (9-20); Calcium 9.3 mg/dL (8.4-10.2); Carbon Dioxide 20 mmol/L (22-30); Chloride 104 mmol/L (98-107); Cholesterol 134 mg/dL (0-200); Estimated Glomerular Filt Rate > 60; Glucose 93 mg/dL (65-110); HDL Direct 35 mg/dL; Potassium 4.6 mmol/L (3.4-5.0); Sodium 137 mmol/L (137-145); Total Protein 6.9 g/dL (6.3-8.2); Triglycerides 232 mg/dL (<150)
[2025-01-13 17:16] LABS: Hemoglobin A1C 6.3 % (<5.7)
== END 2025-01-13 10:13 | disposition home or self-care (01) ==
LOC: ANHGOSHLAB 10:12
PROVIDERS: PCP Family Medicine; Visit Provider Family Medicine
DX: E11.40 Type 2 diabetes mellitus with diabetic neuropathy, unspecified (principal); R74.8 Abnormal levels of other serum enzymes; Z79.4 Long term (current) use of insulin
CPT/HCPCS: 36415; 80053; 80061; 83036

== ENCOUNTER 2025-04-13 08:41 | Outpatient (CLI) | payer MEDICARE, SELFPAY ==
--- NOTE | ~2025-04-13 | US_ITS ---
EXAMINATION: US retroperitoneal duplex ltd DATE: 04/13/2025 09:27 INFECTION PREVENTION COORDINATOR INDICATION: Essential hypertension TECHNIQUE: Sonographic imaging of the kidneys was performed with a 3.5 MHz transducer. Retroperitoneal duplex sonogram of the renal arteries also obtained. FINDINGS: No focal flow abnormalities are seen in the renal arteries on color Doppler. The peak systolic velocity ranges of the right and left renal arteries and aorta are 99 cm per second, 134 cm per second, and 83 cm per second, respectively. The velocities and renal to aortic ratios are within normal limits. IMPRESSION: 1. No Doppler evidence of renal artery stenosis. Reviewed, dictated and finalized at location C. CTION PREVENTION COORDINATOR
== END 2025-04-13 08:42 | disposition home or self-care (01) ==
LOC: GOSHIMG 08:41
PROVIDERS: PCP Student in an Organized Health Care Education/Training Program; Visit Provider Student in an Organized Health Care Education/Training Program
DX: I10 Essential (primary) hypertension (principal)
CPT/HCPCS: 93976

== ENCOUNTER 2025-05-21 09:30 | Outpatient (CLI) | payer MEDICARE, SELFPAY ==
--- OUTSIDE RECORDS SUMMARY | 2025-05-21 09:48 | XMS_ITS | Patient Health Record ---
Author Organization 1 OF Nettie perera [facility] Address [address] [place] [address] Care Team Providers Care Sharepoint Designer Developer Name Role Phone Damian Tilley Primary Care Provider Cindy Quinteros Unavailable [phone] Allergies No Known Allergies Reason For Referral No Information Medications Medication SIG (Take, Route, Fr equency, Duration) Notes Start Date End Date Status Simvastatin Active Lisinopril Active metFORMIN HCl Active amLODIPine Besylate Active Ketoconazole 2 % Cream 1 application to affected area on bottom of feet Topical Once a day; Duration: 60 days 09/24/2022 Active Aspirin Active Social History Tobacco Use: Social History Observation Description Date Details (start date - stop date) Never Smoker NA - NA Social History Tobacco Use: Social Info Question Answer Notes Tobacco Use/Smoking Are you a nonsmoker Additional Details Category Social Info Options Details Miscellaneous: Exercise: Moderate Occupation: Retired Living with: alone Drugs/Alcohol: Do you smoke marijuana? De nies Alcohol use: Social alcohol u se Problems Problem Type SNOMED Code ICD Code Onset Dates Problem Status W/U Status Risk Notes Problem Neurologic disorder associated with type II diabetes mellitus (500062260) Type 2 diabetes mellitus with other diabetic neurological complication (E11.49) Active confirmed Plan Of Treatment No Information Insurance Providers Payer Name Payer Address Payer Phone Subscriber Number Group Number Insured Name Patient Relationship to Insured Coverage Start Date Coverage End Date Medicare [address] [place] [id number] Fabio Juares Self - patient is the insured Medical (General) History Medical History History ICD Code diabetes, , Hypertension, high cholester ol, cataracts Surgical History Surgery Date(Month/Year) Cataract surgery B/L 01/2023
--- OUTSIDE RECORDS SUMMARY | 2025-05-21 09:48 | XMS_ITS | Clinical Summary ---
Author Organization [facility] Address [address] [place] [address] Care Team Providers Care Assistant Mechanic Name Role Phone Alcides Ramirez MD Primary Care Provider [phone] Allergies No known active allergies Medications traMADol [...] 12:35 PM CDT Height 172.7 cm (5' 8) 01/19/2022 12:35 PM CDT Body Mass Index 25.09 01/19/2022 12:35 PM CDT Plan of Treatment Health Maintenance Due Date Last Done Comments Colorectal Cancer Screening Colonoscopy (10 Years) 1954 Hepatitis C 1972 DTaP, Tdap and Td Vaccines ( 1 - Tdap) 1973 Pneumococcal Vaccine: 50+ Years (1 of 1 - PCV) 2004 Zoster Vaccines (1 of 2) 2004 Annual Medicare Wellness Visit 2019 COVID-19 Vaccine (3 - 2024-2 6 season) 2025 09/16/2020, 08/19/2020 Influenza Adult (#1) 2025 03/30/2020 RSV Immunization or 60+ Years (1 - 1-dose 75+ series) 2029 Hepatitis A Vaccines Aged Out No long er eligible based on patient's age to complete this topic Meningococcal B Vaccine Aged Out No l [...] Last Indicated MRSA 01/08/2017 01/08/2017 [place] [id number] Care Teams Assistant Mechanic Relationship Specialty Start Date End Date Alcides Ramirez MD PCP - General FAMILY PRACTICE 01/19/22
--- OUTSIDE RECORDS SUMMARY | 2025-05-21 09:48 | XMS_ITS | Clinical Summary ---
Author Organization [facility] Address [address] [place] [address] Care Team Providers Care Adjunct History Instructor Name Role Phone Ady Wallis MD Primary Care Provider [phone] Unknown, Notinfile Unavailable Unavailable Miscellaneous, Not In File Unavailable Unava ilable Allergies No known active allergies Medications metFORMIN (GLUCOPHAGE) 1,000 mg tablet Take 1 tablet (1,000 mg total) by mouth 2 (two) times a day with meals Active lisinopriL (PRINIVIL,ZESTR IL) 40 mg tablet Take 1 tablet (40 mg total) by mouth daily 2 Active simvastatin (ZOCOR) 20 mg tablet Take 1 tablet (20 mg total) by mouth daily 2 Active pen needle, diabetic 32 gauge x 5/32 needle Use as directed twice a day 100 each 3 Active lancets misc Use as directed up to 4 times a day. 100 each 1 3 Active amLODIPine (NORVASC) 2.5 mg tablet Take 1 tablet (2.5 mg total) by mouth daily 3 Active LANTUS 100 unit/mL (3 mL) pen for injection Inject under the skin 2 (two) times a day Inject 30 units every morning and 25 units every evening 3 Active ketoconazole (NIZORAL) 2 % cream Apply topically daily Apply daily to affected areas on bottom of feet 3 Active lisinopriL (PRINIVIL,ZESTR IL) 20 mg tablet Take 1 tablet (20 mg total) by mouth daily 3 Active metFORMIN (GLUCOPHAGE) 1,000 mg tablet Take 1 tablet (1,000 mg total) by mouth 2 (two) times a day with meals 3 Active simvastatin (ZOCOR) 10 mg tablet Take 1 tablet (10 mg total) by mouth daily 3 Active aspirin 81 mg enteric coated tablet Take 1 tablet (81 mg total) by mouth daily Active lutein-zeaxanth in 25-5 mg capsule Take 1 tablet by mouth daily Active gabapentin (NEURONTIN) 300 mg capsule Take 1 capsule (300 mg total) by mouth 3 (three) times a day 5 Active meloxicam (MOBIC) 7.5 mg tablet Take 1 tablet (7.5 mg total) by mouth nightly 5 Active aspirin 81 mg chewable tablet Take 1 tablet (81 mg total) by mouth daily Active insulin lispro (HumaLOG, ADMELOG) 100 unit/mL [...] for Sliding Scale Insulin Instructions. 15 mL 5 Active amLODIPine (NORVASC) 5 mg tablet Take 1 tablet (5 mg total) by mouth daily 360 tablet 5 03/26/20 26 Active hydroCHLOROthia zide 12.5 mg tablet Take 1 tablet/capsule (12.5 mg total) by mouth daily 90 tablet/capsul e 5 06/24/19 26 Active hydrALAZINE (APRESOLINE) 25 mg tabletIndicatio ns:hypertension Take 1 tablet (25 mg total) by mouth 3 (three) times a day 1080 tablet 5 03/26/20 26 Active insulin glargine 100 unit/mL (3 mL) pen for injection Inject 10 Units under the skin nightly 45 Other 1 5 Active insulin lispro (HumaLOG, ADMELOG) 100 unit/mL pen for injection Inject 12 Units under the skin 3 (three) times a day with meals 15 mL 06/24/19 Active metoprolol tartrate (LOPRESSOR) 25 mg immediate release tablet Take 1 tablet (25 mg total) by mouth 2 (two) times a day 60 tablet 04/01/20 Active Active Problems Problem Noted Date Diagnosed Date HLD (hyperlipidemia) 03/24/2025 Assessment & Plan (03/24/2025 1:53 AM CDT): - Resume home statin Hypertensive urgency 03/24/2025 Assessment & Plan (03/24/2025 1:53 AM CDT): Blood pressure elevated to 180 and 190 systolic. There was improvement with labetalol and clonidine in the ED. - We will hold off on resuming patient's hydrochlorothiazide 12.5 mg daily given his hyponatremia and recurrent falls. Resume his home antihypertensives as tolerated. - IV p.r.n. antihypertensives Abnormal finding in urine 03/24/2025 Assessment & Plan (03/24/2025 1:53 AM CDT): UA abnormal and indicative of possible infection. - Patient is asymptomatic however this could possibly be contributing so we will empirically treat with IV antibiotics and follow up urine culture as above Multiple falls 03/23/2025 Assessment & Plan (03/24/2025 1:53 AM CDT): To 10 falls for the past week that appear to be mechanical in nature. Patient uses a rolling walker at baseline and is typically independent with ADLs. CT head negative for any acute abnormalities, or space-occupying lesions Unclear what the cause of his etiology of the falls are but he appears to have poor p.o. intake during this timeframe - Rule out infectious process. As below we will treat with IV antibiotics for abnormal UA. Follow up culture and deescalate antibiotics as indicated - Start patient on maintenance IV fluids and obtain orthostatic vital signs. We will also monitor on telemetry for any possible arrhythmias. - Start PT OT and placed on fall precautions Transient neurological symptoms 11/13/2024 Dizziness 11/12/2024 Type 2 diabetes mellitus wit h hyperglycemia, with long-term current use of insulin 07/09/2022 Assessment & Plan (03/24/2025 1:53 AM CDT): Patient on long-term insulin and metformin. - We will hold metformin. Start patient on sliding scale insulin with hypoglycemia protocol. Essential hypertension 07/09/2022 Assessment & Plan (03/24/2025 1:53 AM CDT): Blood pressure elevated to 180 and 190 systolic. There was improvement with labetalol and clonidine in the ED. - We will hold off on resuming patient's hydrochlorothiazide 12.5 mg daily given his hyponatremia and recurrent falls. Resume his home antihypertensives as tolerated. - IV p.r.n. antihypertensives Transient alteration of awareness 07/09/2022 Generalized weakness Assessment & Plan (03/24/2025 1:53 AM CDT): To 10 falls for the past week that appear to be mechanical in nature. Patient uses a rolling walker at baseline and is typically independent with ADLs. CT head negative for any acute abnormalities, or space-occupying lesions Unclear what the cause of his etiology of the falls are but he appears to have poor p.o. intake during this timeframe - Rule out infectious process. As below we will treat with IV antibiotics for abnormal UA. Follow up culture and deescalate antibiotics as indicated - Start patient on maintenance IV fluids and obtain orthostatic vital signs. We will also monitor on telemetry for any possible arrhythmias. - Start PT OT and placed on fall precautions Encounters Date Type Department Care Team Description 04/01/2025 7:49 PM CDT - 04/01/2025 10:50 PM CDT Emergency [facility] Emergency Department [address] [place] [id number] Prince Vitale DO HTN (hypertension), malignant (Primary Dx) Discharge Disposition: Discharge to home or self care 03/23/2025 8:48 PM CDT - 03/26/2025 3:21 PM CDT Hospital Encounter [facility] [address] [place] [id number] Kyle Keen Jr., MD Reddy, Sumanth S., MD Patel, Satyen V., MD Multiple falls (Primary Dx); Elevated blood pressure reading Discharge Disposition: Discharge to home, home health skilled care from Last 3 Months Immunizations Immunization Administration Dates Next Due Influenza, Quadrivalent, Split, Intramuscular Influenza, Trivalent, High D ose, Split, Preservative Free, Intramuscular 03/26/2025 Medical History Medical History Date Comments Diabetes Hepatitis A 1975 Hypertension Family History Medical History Relation Name Comments [...] pur e alcohol) socially Social Connection and Isolation Panel Answer Date Recorded In a typical week, how many times do you talk on the phone with family, friends, or neighbors? More than three times a week 11/13/2024 How often do you get togethe r with friends or relatives? More than three times a week 11/13/2024 How often do you attend [facility] or bahai services? Never 11/13/2024 Do you belong to any clubs o r organizations such as muslim groups, unions, fraternal or athletic groups, or [...] and heating? Not hard at all 11/13/2024 PRAPARE - Transportation Answer Date Re [...] place to sleep or slept in a mcc (including now)? No 07/09/2022 Housing Stability Vital Sign Answer Dhruv e Recorded In the last 12 months, was t here a time when you were not able to pay the mortgage or rent on time? No 11/13/2024 In the past 12 months, how m any times have you moved where you were living? 0 11/13/2024 At any time in the past 12 m [facility], were you homeless or living in a mcc (including now)? No 11/13/2024 Social Connection and Isolation Panel Answer Date Recorded In a typical week, how many times do you talk on the phone with family, friends, or neighbors? More than three times a week 03/25/2025 How often do you get togethe r with friends or relatives? More than three times a week 03/25/2025 How often do you attend chur ch or bahai services? Never 03/25/2025 Do you belong to any clubs o r organizations such as muslim groups, unions, fraternal or athletic groups, or school groups? No 03/25/2025 How often do you attend meet ings of the clubs or organizations you belong to? Never 03/25/2025 Are you , , di vorced, , never , or living with a partner? Never 03/25/2025 Overall Financial Resource Strain (CARDIA) Answe r Date Recorded How hard is it for you to pa y for the very basics like food, housing, medical care, and heating? Not very hard 03/25/2025 Hunger Vital Sign Answer Date Recorded Within the past 12 months, y ou worried that your food would run out before you got the money to buy more. Never true 03/25/20 25 Within the past 12 months, t he food you bought just didn't last and you didn't have money to get more. Never true 03/25/2025 PRAPARE - Transportation Answer Date Re corded In the past 12 months, has l ack of transportation kept you from medical appointments or from getting medications? No 03/04 In the past 12 months, has l ack of transportation kept you from meetings, work, or from getting things needed for daily living? No 03/25/2025 Housing Stability Vital Sign Answer Dhruv e Recorded In the last 12 months, was t here a time when you were not able to pay the mortgage or rent on time? No 03/25/2025 In the past 12 months, how m any times have you moved where you were living? 0 03/25/2025 At any time in the past 12 m [facility], were you homeless or living in a mcc (including now)? No 03/25/2025 [facility] Utilities Answer Date Recorded In the past 12 months has th e electric, gas, oil, or water company threatened to shut off services in your home? No 03/25/2025 Personal Safety Answer Date Recorded Have you ever been in or are you currently in a harmful physical or emotional relationship or is someone making you feel afraid or unsafe? Denies 04/01/2025 Sex and Gender Information Value Date Recorded Sex Assigned at Not on file Legal Sex Male 5:00 PM [employer] Gender Identity Not on file Sexual Orientation Not on file Last Filed Vital Signs Vital Sign Reading Time Taken Comments Blood Pressure 129/67 04/01/2025 10:30 PM CDT Pulse 68 04/01/2025 10:30 PM CDT Temperature 36.6 C (97.9 F) 04/01/2025 4:35 PM CDT Respiratory Rate 12 04/01/2025 10:3 0 PM CDT Oxygen Saturation 95% 04/01/2025 10: 30 PM CDT Inhaled Oxygen Concentration - - Weight 76.1 kg (167 lb 12.3 oz) 04/01/2025 4:35 PM CDT Height 172.7 cm (5' 8) 03/24/2025 1:04 AM CDT Body Mass Index 25.51 03/24/2025 1:04 AM CDT Plan of Treatment Health Maintenance Due [...] Visit 65+ 2019 Covid-19 Vaccine (3 - 2024-2 6 season) 2025 09/16/2020, 08/19/2020 Hemoglobin A1C 09/22/2025 03/24/2025, 03/04, 11/13/2024, Additional history exists Lipid Panel 11/13/2025 11/13/2024, 07/09/2022 Fall Risk Assessment 03/26/2026 03/26/2025 eGFR 04/01/2026 04/01/2025, 03/04, 03/23/2025, Additional history exists Influenza Vaccine Completed 03/26/2025, , 03/18/2023, Additional history exists Procedures Procedure Name Priority Date/Time Associated Diagnosis Comments EGFR STAT 04/01/2025 4:42 PM CDT DIFFERENTIAL AUTO STAT 04/01/2025 4:4 2 PM CDT COMPREHENSIVE METABOLIC PANEL STAT 04/01/2025 4:42 PM CDT CBC WITH AUTO DIFFERENTIAL STAT 04/01/2025 4:42 PM CDT POCT GLUCOSE DEVICE Routine 04/01/2025 4 :37 PM CDT POCT GLUCOSE DEVICE Routine 03/26/2025 2 :47 PM CDT POCT GLUCOSE DEVICE Routine 03/26/2025 1 0:51 AM CDT POCT GLUCOSE DEVICE Routine 03/26/2025 9 :53 AM CDT POCT GLUCOSE DEVICE Routine 03/26/2025 7 :44 AM CDT POCT GLUCOSE DEVICE Routine 03/26/2025 4 :15 AM CDT POCT GLUCOSE DEVICE Routine 03/26/2025 1 2:14 AM CDT POCT GLUCOSE DEVICE Routine 03/25/2025 1 0:27 PM CDT POCT GLUCOSE DEVICE Routine 03/25/2025 8 :17 PM CDT POCT GLUCOSE DEVICE Routine 03/25/2025 7 :23 PM CDT POCT GLUCOSE DEVICE Routine 03/25/2025 6 :57 PM CDT POCT GLUCOSE DEVICE Routine 03/25/2025 6 :41 PM CDT POCT GLUCOSE DEVICE Routine 03/25/2025 4 :00 PM CDT POCT GLUCOSE DEVICE Routine 03/25/2025 1 1:36 AM CDT POCT GLUCOSE DEVICE Routine 03/25/2025 7 :21 AM CDT POCT GLUCOSE DEVICE Routine 03/24/2025 8 :39 PM CDT POCT GLUCOSE DEVICE Routine 03/24/2025 4 :45 PM CDT POCT GLUCOSE DEVICE Routine 03/24/2025 1 1:30 AM CDT POCT GLUCOSE DEVICE Routine 03/24/2025 8 :00 AM CDT HEMOGLOBIN A1C Routine 03/24/2025 4:13 AM CDT EGFR Routine 03/24/2025 4:13 AM CDT DIFFERENTIAL AUTO Routine 03/24/2025 4:1 3 AM CDT COMPREHENSIVE METABOLIC PANEL Routine 03/24/2025 4:13 AM CDT CBC WITH AUTO DIFFERENTIAL Routine 03/24/2025 4:13 AM CDT POCT GLUCOSE DEVICE Routine 03/24/2025 1 :04 AM CDT [facility] ILL/INJURED PATIENT INIT 30-74 MIN Routine 03/23/2025 10:54 PM CDT POC BLOOD GAS AND CHEMISTRIES, VENOUS Routine 03/23/2025 8:40 PM CDT XR CHEST 1 VIEW ED 03/23/2025 8:[address] HEAD WO CONTRAST ED 03/23/2025 8 :24 PM CDT URINALYSIS, MICROSCOPIC ONLY STAT 03/23/2025 8:14 PM CDT URINE CULTURE STAT 03/23/2025 8:14 PM CDT URINALYSIS AND REFLEX TO MICROSCOPIC AND CULTURE STAT 03/23/2025 8:14 PM CDT BETA-HYDROXYBUTYRATE STAT 03/23/2025 7:14 PM CDT MAGNESIUM STAT 03/23/2025 7:14 PM CDT EGFR STAT 03/23/2025 7:14 PM CDT DIFFERENTIAL AUTO STAT 03/23/2025 7:1 4 PM CDT COMPREHENSIVE METABOLIC PANEL STAT 03/23/2025 7:14 PM CDT CBC WITH AUTO DIFFERENTIAL STAT 03/23/2025 7:14 PM CDT POCT GLUCOSE DEVICE Routine 03/23/2025 7 :13 PM CDT LIPID PANEL Routine 11/13/2024 4:42 AM CDT from Last 3 Months or Most Recently Relevant to Health Maintenance Results * eGFR (04/01/2025 4:42 PM CDT) eGFR 73 >=60 mL/min/1. 73 m2 Comment: Interpretive Data [...] was last reviewed 2021. Testing performed by: [facility], [address] [place] [address], [place]., [address] Blood 04/01/2025 4:42 PM CDT 04/01/2025 5:07 PM CDT us Prince Vitale DO LAB BLOOD ORDERABLES Final Res ult LIZZY [address] [facility] Department of Laboratories [place], [place] [id number] * (ABNORMAL) Differential, auto (04/01/2025 4:42 PM CDT) Neutrophil abs 5.89 1.50 - 6.50 K/cumm Comment:Testing performed by : [address] [address] Imm gran abs 0.11(H) 0.00 - 0.10 K/cumm LIZZY Comment:Testing performed by : [address] [address] Lymphocyte abs 1.70 0.80 - 3.30 K/cumm LIZZY Comment:Testing performed by : [address] [address] Monocyte abs 0.81(H) 0.20 - 0.80 K/cumm LIZZY Comment:Testing performed by : [address] [address] Eosinophil abs 0.15 0.00 - 0.50 K/cumm LIZZY Comment:Testing performed by : [address] [address] Basophil abs 0.09 0.00 - 0.10 K/cumm LIZZY Comment:Testing performed by : [address] [address] Neutrophil pct 67.3 % LIZZY Comment: Interpretive Data Percent cell count reference ranges are not reported, since discordance with absolute values may lead to misinterpretation of CBC data. Current Interpretive Data was last revised on 2017. Testing performed by: [address] [address] Imm gran pct 1.3 % LIZZY Comment: Interpretive Data Percent cell count reference ranges are not reported, since discordance with absolute values may lead to misinterpretation of CBC data. Current Interpretive Data was last revised on 2017. Testing performed by: [address] [address] Lymphocyte pct 19.4 % LIZZY Comment: Interpretive Data Percent cell count reference ranges are not reported, since discordance with absolute values may lead to misinterpretation of CBC data. Current Interpretive Data was last revised on 2017. Testing performed by: [address] [address] Monocyte pct 9.3 % LIZZY Comment: Interpretive Data Percent cell count reference ranges are not reported, since discordance with absolute values may lead to misinterpretation of CBC data. Current Interpretive Data was last revised on 2017. Testing performed by: [address] [address] Eosinophil pct 1.7 % LIZZY Comment: Interpretive Data Percent cell count reference ranges are not reported, since discordance with absolute values may lead to misinterpretation of CBC data. Current Interpretive Data was last revised on 2017. Testing performed by: [address] [address] Basophil pct 1.0 % LIZZY Comment: Interpretive Data Percent cell count reference ranges are not reported, since discordance with absolute values may lead to misinterpretation of CBC data. Current Interpretive Data was last revised on 2017. Testing performed by: [address] [address] Blood 04/01/2025 4:42 PM CDT 04/01/2025 5:02 PM CDT us Prince Vitale DO LAB BLOOD ORDERABLES Final Res ult LIZZY [address] [facility] Department [place] [address] * (ABNORMAL) CBC with auto differential (04/01/2025 4:42 PM CDT) WBC 8.75 3.80 - 9.90 K/cumm Comment:Testing performed by : [address] [address] Hgb 13.0 13.0 - 17.5 g/dL LIZZY Comment:Testing performed by : [address] [address] Hct 38.0(L) 38.9 - 50.3 % LIZZY Comment:Testing performed by : [address] [address] Plt 263 150 - 400 K/cumm LIZZY Comment:Testing performed by : [address], [address] MPV 10.1 9.1 - 12.3 fL LIZZY Comment:Testing performed by : [address], [address] RBC 4.64 4.30 - 5.80 M/cumm LIZZY Comment:Testing performed by : [address], [address] MCV 81.9 81.3 - 96.4 fL LIZZY Comment:Testing performed by : [address], [address] MCH 28.0 27.1 - 33.3 pg LIZZY Comment:Testing performed by : [address], [address] MCHC 34.2 32.3 - 35.7 g/dL LIZZY Comment:Testing performed by : [address], [address] RDW CV 13.7 11.1 - 14.9 % LIZZY Comment:Testing performed by : [address], [address] RDW SD 40.0 35.7 - 48.1 fL LIZZY Comment:Testing performed by : [address], [address] NRBC abs 0.00 0.00 - 0.01 K/cumm LIZZY Comment:Testing performed by : [address], [address] Blood 04/01/2025 4:42 PM CDT 04/01/2025 5:02 PM CDT Prince Vitale DO LAB BLOOD ORDERABLES Final Res ult LIZZY [address] [facility] Department [place] [address] * (ABNORMAL) Comprehensive metabolic panel (04/01/2025 4:42 PM CDT) Sodium 139 135 - 145 mmol/L Comment:Testing performed by : [address] [address] Potassium, pl 5.3(H) 3.3 - 4.9 mmol/L LIZZY Comment:Testing performed by : [address] [address] Chloride 101 97 - 110 mmol/L LIZZY Comment:Testing performed by : [address] [address] CO2 28 22 - 32 mmol/L LIZZY Comment:Testing performed by : [address] [address] Anion gap 10 2 - 15 mmol/L LIZZY Comment:Testing performed by : [address] [address] BUN 17 6 - 25 mg/dL LIZZY Comment:Testing performed by : [address] [address] Creatinine 1.09 0.80 - 1.30 mg/dL LIZZY Comment:Testing performed by : [address] [address] Glucose 99 70 - 199 mg/dL LIZZY Comment: Interpretive Data Fasting glucose >/= 126 [...] was last revised 2022. Testing performed by: [address] [address] Calcium 10.1 8.5 - 10.3 mg/dL LIZZY HERRERA Comment:Testing performed by : [address] [address] Bilirubin, total 0.3 0.1 - 1.2 mg/dL LIZZY Comment:Testing performed by : [address] [address] Protein, pl 6.9 6.5 - 8.5 g/dL LIZZY Comment:Testing performed by : [address] [address] Albumin 4.2 3.5 - 5.0 g/dL LIZZY Comment:Testing performed by : [address] [address] Alk phos 106 40 - 130 Units/L LIZZY Comment:Testing performed by : [address] [address] ALT 89(H) 7 - 55 Units/L LIZZY Comment:Testing performed by : [address] [address] AST 49 10 - 50 Units/L LIZZY Comment:Testing performed by : [address] [address] Blood 04/01/2025 4:42 PM CDT 04/01/2025 5:07 PM CDT us Prince Vitale DO LAB BLOOD ORDERABLES Final Res ult ALISIAMARIEL [address] [facility] Department of Laboratories [place], [place] [id number] * POCT glucose (04/01/2025 4:37 PM CDT) Glucose, POC 109 70 - 199 mg/dL Comment:Testing performed by : [address] [address] Blood 04/01/2025 4:37 PM CDT 04/01/2025 4:37 PM CDT us Notinfile Unknown LAB POCT ORDERABLES - DEVICE F inal Result Performing Organization Address [facility]/ZIP Co de Phone Number ALISIA[address] [place] [address] * POCT glucose (03/26/2025 2:47 PM CDT) Glucose, POC 143 70 - 199 mg/dL Comment:Testing performed by : [address] [address] Blood 03/26/2025 2:47 PM CDT 03/26/2025 2:47 PM CDT Milana Nicole MD LAB POCT ORDERABLES - DEVICE Final Result Performing Organization Address [facility] de Phone Number ALISIA[address] [address] * (ABNORMAL) POCT glucose (03/26/2025 10:51 AM CDT) Glucose, POC 270(H) 70 - 199 mg/dL Comment:Testing performed by : [address] [address] Glucose comment 1 RN/MD Notified LIZZY Comment:Testing performed by : [address] [address] Blood 03/26/2025 10:5 1 AM CDT 03/26/2025 10:51 AM CDT Milana Nicole MD LAB POCT ORDERABLES - DEVICE Final Result Performing Organization Address [facility] Co de Phone Number [address] [address] * (ABNORMAL) POCT glucose (03/26/2025 9:53 AM CDT) Glucose, POC 324(H) 70 - 199 mg/dL Comment:Testing performed by : [address] [address] Glucose comment 1 RN/MD Notified LIZZY Comment:Testing performed by : [facility], [address] [place] [address]., [address] Blood 03/26/2025 9:53 AM CDT 03/26/2025 9:53 AM CDT us Milana Nicole MD LAB POCT ORDERABLES - DEVICE Final Result Performing Organization Address City/[facility]/ZIP Co de Phone Number LIZZY [address] [place] [address] * POCT glucose (03/26/2025 7:44 AM CDT) Glucose, POC 182 70 - 199 mg/dL Comment:Testing performed by : [facility], [address] [place] [address]., [address] Blood 03/26/2025 7:44 AM CDT 03/26/2025 7:44 AM CDT us Milana Nicole MD LAB POCT ORDERABLES - DEVICE Final Result Performing Organization Address [facility] Co de Phone Number ALISIA[address] [place] [address] * POCT glucose (03/26/2025 4:15 AM CDT) Glucose, POC 118 70 - 199 mg/dL Comment:Testing performed by : [address] [address] Blood 03/26/2025 4:15 AM CDT 03/26/2025 4:15 AM CDT us Milana Nicole MD LAB POCT ORDERABLES - DEVICE Final Result Performing Organization Address City/[facility]/ZIP Co de Phone Number ALISIA[address] [place] [address] * POCT glucose (03/26/2025 12:14 AM CDT) Glucose, POC 124 70 - 199 mg/dL Comment:Testing performed by : [address] [address] Blood 03/26/2025 12:1 4 AM CDT 03/26/2025 12:14 AM CDT us Milana Nicole MD LAB POCT ORDERABLES - DEVICE Final Result ALISIA[address] [place] [address] * POCT glucose (03/25/2025 10:27 PM CDT) Glucose, POC 117 70 - 199 mg/dL Comment:Testing performed by : [address] [address] Blood 03/25/2025 10:2 7 PM CDT 03/25/2025 10:27 PM CDT us Milana Nicole MD LAB POCT ORDERABLES - DEVICE Final Result Performing Organization Address City/[facility]/ZIP Co de Phone Number [address] [place] [address] * POCT glucose (03/25/2025 8:17 PM CDT) Glucose, POC 129 70 - 199 mg/dL Comment:Testing performed by : [address] [address] Blood 03/25/2025 8:17 PM CDT 03/25/2025 8:17 PM CDT us Milana Nicole MD LAB POCT ORDERABLES - DEVICE Final Result [address] [place] [address] * POCT glucose (03/25/2025 7:23 PM CDT) Glucose, POC 112 70 - 199 mg/dL Comment:Testing performed by : [address] [address] Blood 03/25/2025 7:23 PM CDT 03/25/2025 7:23 PM CDT Milana Nicole MD LAB POCT ORDERABLES - DEVICE Final Result Performing Organization Address [facility] Co de Phone Number [address] [place] [address] * POCT glucose (03/25/2025 6:57 PM CDT) Glucose, POC 81 70 - 199 mg/dL Comment:Testing performed by : [address] [address] Blood 03/25/2025 6:57 PM CDT 03/25/2025 6:57 PM CDT Milana Nicole MD LAB POCT ORDERABLES - DEVICE Final Result Performing Organization Address [facility] de Phone Number [address] [place] [address] * (ABNORMAL) POCT glucose (03/25/2025 6:41 PM CDT) Glucose, POC 56(L) 70 - 199 mg/dL Comment:Testing performed by : [address] [address] Glucose comment 1 RN/MD Notified [facility] Comment:Testing performed by : [address] [address] Blood 03/25/2025 6:41 PM CDT 03/25/2025 6:41 PM CDT Milana Nicole MD LAB POCT ORDERABLES - DEVICE Final Result Performing Organization Address [facility] Co de Phone Number CERNER [address] [place] [address] * POCT glucose (03/25/2025 4:00 PM CDT) Glucose, POC 95 70 - 199 mg/dL Comment:Testing performed by : [address] [address] Glucose comment 1 RN/MD Notified LIZZY Comment:Testing performed by : [address] [address] Blood 03/25/2025 4:00 PM CDT 03/25/2025 4:00 PM CDT Milana Nicole MD LAB POCT ORDERABLES - DEVICE Final Result Performing Organization Address City/[facility] Co de Phone Number ALISIA[address] [address] * (ABNORMAL) POCT glucose (03/25/2025 11:36 AM CDT) Glucose, POC 258(H) 70 - 199 mg/dL Comment:Testing performed by : [address] [address] Glucose comment 1 RN/MD Notified LIZZY Comment:Testing performed by : [address] [address] Blood 03/25/2025 11:3 6 AM CDT 03/25/2025 11:36 AM CDT Milana Nicole MD LAB POCT ORDERABLES - DEVICE Final Result [address] [address] * POCT glucose (03/25/2025 7:21 AM CDT) Glucose, POC 154 70 - 199 mg/dL Comment:Testing performed by : [address] [address] Glucose comment 1 RN/MD Notified LIZZY Comment:Testing performed by : [address] [address] Blood 03/25/2025 7:21 AM CDT 03/25/2025 7:21 AM CDT Milana Nicole MD LAB POCT ORDERABLES - DEVICE Final Result Performing Organization Address City/[facility] Co de Phone Number LIZZY [address] [place] [address] * POCT glucose (03/24/2025 8:39 PM CDT) Glucose, POC 132 70 - 199 mg/dL Comment:Testing performed by : [address] [address] Blood 03/24/2025 8:39 PM CDT 03/24/2025 8:39 PM CDT Milana Nicole MD LAB POCT ORDERABLES - DEVICE Final Result Performing Organization Address [facility] de Phone Number ALISIA[address] [place] [address] * (ABNORMAL) POCT glucose (03/24/2025 4:45 PM CDT) Glucose, POC 354(H) 70 - 199 mg/dL Comment:Testing performed by : [address] [address] Glucose comment 1 RN/MD Notified LIZZY Comment:Testing performed by : [address] [address] Blood 03/24/2025 4:45 PM CDT 03/24/2025 4:45 PM CDT Milana Nicole MD LAB POCT ORDERABLES - DEVICE Final Result Performing Organization Address City/[facility] Co de Phone Number CER[address] [place] [address] * (ABNORMAL) POCT glucose (03/24/2025 11:30 AM CDT) Glucose, POC 296(H) 70 - 199 mg/dL Comment:Testing performed by : [address], [address] Glucose comment 1 RN/MD Notified LIZZY Comment:Testing performed by : [address] [address] Blood 03/24/2025 11:3 0 AM CDT 03/24/2025 11:30 AM CDT Milana Nicole MD LAB POCT ORDERABLES - DEVICE Final Result Performing Organization Address [facility] Co de Phone Number ALISIA[address] [address] * (ABNORMAL) POCT glucose (03/24/2025 8:00 AM CDT) [facility] Glucose, POC 203(H) 70 - 199 mg/dL Comment:Testing performed by : [address] [address] Glucose comment 1 RN/ Notified LIZZY Comment:Testing performed by : [address] [address] Blood 03/24/2025 8:00 AM CDT 03/24/2025 8:00 AM CDT Milana Nicole MD LAB POCT ORDERABLES - DEVICE Final Result Performing Organization Address City/[facility]/ZIP Co de Phone Number [address] [address] * eGFR (03/24/2025 4:13 AM CDT) Pathologist [facility] eGFR >90 >=60 mL/min/1. 73 m2 Comment: [...] was last reviewed 2021. Testing performed by: [address] [address] Blood 03/24/2025 4:13 AM CDT 03/24/2025 4:57 AM CDT us Harish Van MD LAB BLOOD ORDERABLES Final R esult [facility] [address] [facility] Department [place] [address] * (ABNORMAL) Differential, auto (03/24/2025 4:13 AM CDT) Neutrophil abs 6.59(H) 1.50 - 6.50 K/cumm Comment:Testing performed by : [address] [address] Imm gran abs 0.12(H) 0.00 - 0.10 K/cumm LIZZY Comment:Testing performed by : [address] [address] Lymphocyte abs 1.52 0.80 - 3.30 K/cumm LIZZY Comment:Testing performed by : [address] [address] Monocyte abs 0.66 0.20 - 0.80 K/cumm LIZZY Comment:Testing performed by : [address] [address] Eosinophil abs 0.11 0.00 - 0.50 K/cumm [facility] Comment:Testing performed by : [address] [address] Basophil abs 0.08 0.00 - 0.10 K/cumm CERMARIEL Comment:Testing performed by : [address] [address] [facility]rophil pct 72.6 % [facility] Comment: Interpretive Data Percent cell count reference ranges are not reported, since discordance with absolute values may lead to misinterpretation of CBC data. Current Interpretive Data was last revised on 2017. Testing performed by: [address] [address] Imm gran pct 1.3 % [facility] Comment: Interpretive Data Percent cell count reference ranges are not reported, since discordance with absolute values may lead to misinterpretation of CBC data. Current Interpretive Data was last revised on 2017. Testing performed by: [address] [address] Lymphocyte pct 16.7 % [facility] Comment: Interpretive Data Percent cell count reference ranges are not reported, since discordance with absolute values may lead to misinterpretation of CBC data. Current Interpretive Data was last revised on 2017. Testing performed by: [address] [address] Monocyte pct 7.3 % [facility] Comment: Interpretive Data Percent cell count reference ranges are not reported, since discordance with absolute values may lead to misinterpretation of CBC data. Current Interpretive Data was last revised on 2017. Testing performed by: [address] [address] Eosinophil pct 1.2 % [facility] Comment: Interpretive Data Percent cell count reference ranges are not reported, since discordance with absolute values may lead to misinterpretation of CBC data. Current Interpretive Data was last revised on 2017. Testing performed by: [address] [address] Basophil pct 0.9 % [facility] Comment: Interpretive Data Percent cell count reference ranges are not reported, since discordance with absolute values may lead to misinterpretation of CBC data. Current Interpretive Data was last revised on 2017. Testing performed by: [address] [address] Blood 03/24/2025 4:13 AM CDT 03/24/2025 5:02 AM CDT us Harish Van MD LAB BLOOD ORDERABLES Final R esult LIZZY [address] [facility] Department [place] [address] * (ABNORMAL) CBC with auto differential (03/24/2025 4:13 AM CDT) WBC 9.08 3.80 - 9.90 K/cumm Comment:Testing performed by : [address] [address] Hgb 11.7(L) 13.0 - 17.5 g/dL LIZZY Comment:Testing performed by : [address] [address] Hct 33.8(L) 38.9 - 50.3 % LIZZY Comment:Testing performed by : [address] [address] Plt 210 150 - 400 K/cumm LIZZY Comment:Testing performed by : [address] [address] MPV 10.3 9.1 - 12.3 fL LIZZY Comment:Testing performed by : [address] [address] RBC 4.13(L) 4.30 - 5.80 M/cumm LIZZY Comment:Testing performed by : [address] [address] MCV 81.8 81.3 - 96.4 fL LIZZY Comment:Testing performed by : [address] [address] MCH 28.3 27.1 - 33.3 pg LIZZY HERRERA Comment:Testing performed by : [address] [address] MCHC 34.6 32.3 - 35.7 g/dL LIZZY HERRERA Comment:Testing performed by : [address] [address] RDW CV 13.3 11.1 - 14.9 % LIZZY HERRERA Comment:Testing performed by : [address] [address] RDW SD 39.1 35.7 - 48.1 fL LIZZY HERRERA Comment:Testing performed by : [address] [address] NRBC abs 0.00 0.00 - 0.01 K/cumm LIZZY HERRERA Comment:Testing performed by : [address] [address] Blood 03/24/2025 4:13 AM CDT 03/24/2025 5:02 AM CDT us Harish Van MD LAB BLOOD ORDERABLES Final R esult LIZZY [facility] Department [place] [address] * (ABNORMAL) Hemoglobin A1c (03/24/2025 4:13 AM CDT) [facility] Hgb A1C 6.8(H) 4.0 - 5.6 % Comment:Testing performed by : [address] [address] Estimated Average Glucose 148 mg/dL LIZZY HERRERA Comment: The ADA recommends reporting an estimated Average Glucose (eAG) with all Hemoglobin A1c results using the equation derived from a study of 507 normal and diabetic adults. Minority populations were underrepresented and children were not included. (Diabetes Care 31:9359-3673, 2008). The eAG is not equivalent to a fasting glucose. Testing performed by: [address] [address] Blood 03/24/2025 4:13 AM CDT 03/24/2025 5:02 AM CDT us Milana Nicole MD LAB BLOOD ORDERABLES Final Re sult LIZZY [address] [facility] Department [place] [address] * (ABNORMAL) Comprehensive metabolic panel (03/24/2025 4:13 AM CDT) Sodium 138 135 - 145 mmol/L Comment:Testing performed by : [address] [address] Potassium, pl 4.1 3.3 - 4.9 mmol/L LIZZY Comment:Testing performed by : [address] [address] Chloride 102 97 - 110 mmol/L LIZZY Comment:Testing performed by : [address] [address] CO2 23 22 - 32 mmol/L LIZZY Comment:Testing performed by : [address] [address] Anion gap 13 2 - 15 mmol/L LIZZY Comment:Testing performed by : [address] [address] BUN 19 6 - 25 mg/dL LIZZY Comment:Testing performed by : [address] [address] Creatinine 0.91 0.80 - 1.30 mg/dL LIZZY Comment:Testing performed by : [address] [address] Glucose 137 70 - 199 mg/dL LIZZY Comment: Interpretive Data Fasting glucose >/= 126 [...] was last revised 2022. Testing performed by: [address] [address] Calcium 9.0 8.5 - 10.3 mg/dL LIZZY Comment:Testing performed by : [address] [address] Bilirubin, total 0.3 0.1 - 1.2 mg/dL LIZZY Comment:Testing performed by : [address] [address] Protein, pl 5.7(L) 6.5 - 8.5 g/dL LIZZY Comment:Testing performed by : [address] [address] Albumin 3.5 3.5 - 5.0 g/dL LIZZY Comment:Testing performed by : [address] [address] Alk phos 85 40 - 130 Units/L LIZZY Comment:Testing performed by : [address] [address] ALT 53 7 - 55 Units/L LIZZY Comment:Testing performed by : [address] [address] AST 36 10 - 50 Units/L LIZZY Comment:Testing performed by : [address] [address] Blood 03/24/2025 4:13 AM CDT 03/24/2025 4:57 AM CDT us Harish Van MD LAB BLOOD ORDERABLES Final R esult [facility] [address] [facility] Department [place] [address] * POCT glucose (03/24/2025 1:04 AM CDT) [facility] Glucose, POC 111 70 - 199 mg/dL Comment:Testing performed by : [address] [address] Glucose comment 1 RN/MD Notified LIZZY Comment:Testing performed by : [address] [address] Blood 03/24/2025 1:04 AM CDT 03/24/2025 1:04 AM CDT us Harish Van MD LAB POCT ORDERABLES - DEVICE Final Result LIZZY [facility] [facility] Department [place] [address] * [place] CRITICAL CARE ILL/INJURED PATIENT INIT 30-74 MIN (03/23/2025 10:54 PM CDT) Narrative Kyle Keen Jr., MD - 03/23/2025 10:54 PM CDT Kyle Keen Jr., MD 03/23/2025 10:55 PM Critical Care Performed by: Kyle Keen Jr., MD Authorized by: Kyle Keen Jr., MD Critical care provider statement: As reflected in the history, physical exam, orders, notes, and/or MDM, I was personally present while the patient was critically ill and provided critical care services for 45 minutes, excluding time involved in separately billable procedures. Critical care was necessary to treat or prevent imminent or life-threatening deterioration of the following condition(s): Critical care was time spent by me providing the following: initiation and active titration of vasoactive medications Elevated blood pressure requiring clonidine and labetalol. I provided emergent necessary critical care medicine services to this patient. I spent time discussing the management of this critically ill patient with consultants and the medical staff. I ordered and reviewed test results and/or imaging studies. I spent time documenting in the medical record. I admitted this patient to a continuous cardiac monitored bed. us Kyle Keen Jr., MD IN CLINIC/BEDSIDE [facility] Final Result * (ABNORMAL) POC Blood Gas and Chemistries, Venous - (03/23/2025 8:40 PM CDT) [facility] pH,alayna POC 7.40 7.32 - 7.43 Comment:Testing performed by : [address] [address] pCO2, alayna POC 39(L) 40 - 50 mmHg LIZZY Comment:Testing performed by : [facility], [address] [place] [address]., [address] pO2,alayna POC 60 mmHg LIZZY Comment: Interpretive Data No reference range established. Current interpretive data was last revised 2020. Testing performed by: [facility], [address] [place] [address]., [address] HCO3, alayna (Calc) POC 24 20 - 30 mmol/L LIZZY Comment:Testing performed by : [address] [address] Base excess, alayna POC 0 mmol/L LIZZY Comment: Interpretive Data No reference range established. Current interpretive data was last revised 2020. Testing performed by: [address] [address] Blood 03/23/2025 8:40 PM CDT 03/23/2025 8:40 PM CDT us Notinfile Unknown LAB POCT ORDERABLES - DEVICE F inal Result LIZZY [address] [facility] Department [place] [address] * XR Chest 1 View (03/23/2025 8:39 PM CDT) Anatomical Region Laterality Modality Body, Chest N/A Computed Radiogr aphy 03/23/2025 8:45 PM CDT Narrative 03/23/2025 8:46 PM CDT EXAM DESCRIPTION: XR CHEST 1 VIEW REASON FOR STUDY: fall Patient is a diabetic and states that today he has been having trouble keeping his blood sugar levels up and had a couple of falls. Also states that he's been having some dizziness for a while now. TECHNIQUE: Frontal radiographic view(s) of the chest. COMPARISON: 07/08/2022 FINDINGS: LUNGS: Mild bibasilar atelectasis. Left basilar calcified granulomas are unchanged. No focal pulmonary parenchymal consolidation, pleural effusion, or pneumothorax. HEART/MEDIASTINUM: Cardiac silhouette normal in size. Mediastinal and hilar contours appear normal. LINES/TUBES: None. BONES: No acute osseous abnormality. IMPRESSION: No acute cardiopulmonary abnormality. THIS IS AN ELECTRONICALLY VERIFIED FINAL REPORT 03/23/2025 8:46 PM - Electronically signed by Samaria Light M.D. AT: AT Report ID: [id number] Reading Location: [id number] Procedure Note Samaria Light MD - 03/23/2025 EXAM DESCRIPTION: XR CHEST 1 VIEW REASON FOR STUDY: fall Patient is a diabetic and states that today he has been having troublekeeping his blood sugar levels up and had a couple of falls. Also states that he's been having some dizziness for a while now. TECHNIQUE: Frontal radiographic view(s) of the chest. COMPARISON: 07/08/2022 FINDINGS: LUNGS: Mild bibasilar atelectasis. Left basilar calcified granulomas are unchanged. No focal pulmonary parenchymal consolidation, pleural effusion, or pneumothorax. HEART/MEDIASTINUM: Cardiac silhouette normal in size. Mediastinal andhilar contours appear normal. LINES/TUBES: None. BONES: No acute osseous abnormality. IMPRESSION: No acute cardiopulmonary abnormality. THIS IS AN ELECTRONICALLY VERIFIED FINAL REPORT 03/23/2025 8:46 PM - Electronically signed by Samaria Light M.D. AT: AT Report ID: [id number] Reading Location: [id number] us Janessa LIRIANO IMG XR PROCEDURES Final Resu lt * CT Head WO Contrast (03/23/2025 8:24 PM CDT) Anatomical Region Laterality Modality Head and Neck N/A Computed Tomogra phy 03/23/2025 8:28 PM CDT Narrative 03/23/2025 8:30 PM CDT EXAM DESCRIPTION: CT HEAD WO CONTRAST REASON FOR STUDY: possible fall possible fall; Hypoglycemia today TECHNIQUE: Axial images acquired through the brain without intravenous contrast. Images stored on PACS. Automated exposure control was used as a dose optimization technique for this examination. COMPARISON: 11/13/2024 FINDINGS: BRAIN: No hemorrhage, edema or mass effect. No recent infarct. Generalized atrophy and periventricular microvascular white matter ischemic change. 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 EXTRA-AXIAL SPACES: No fluid collections. No masses. CALVARIUM: No fracture. SINUSES/MASTOIDS: Polyps or retention cysts right maxillary sinus. ORBITS: No significant abnormality. OTHER: No other significant abnormality. IMPRESSION: No acute intracranial findings. THIS IS AN ELECTRONICALLY VERIFIED FINAL REPORT 03/23/2025 8:30 PM - Electronically signed by Florentino Cunha M.D. KT: JAD Report ID: [id number] Reading Location: [id number] Procedure Note Florentino Cunha MD - 03/23/2025 EXAM DESCRIPTION: CT HEAD WO CONTRAST REASON FOR STUDY: possible fall possible fall; Hypoglycemia today TECHNIQUE: Axial images acquired through the brain without intravenous contrast. Images stored on PACS. Automated exposure control was used asa dose optimization technique for this examination. COMPARISON: 11/13/2024 FINDINGS: BRAIN: No hemorrhage, edema or mass effect. No recent infarct. Generalized atrophy and periventricular microvascular white matterischemic change. Tiny old lacunar infarcts involving the right cerebellarhemisphere and the bilateral thalamic nuclei. EXTRA-AXIAL SPACES: No fluid collections. No masses. CALVARIUM: No fracture. SINUSES/MASTOIDS: Polyps or retention cysts right maxillary sinus. ORBITS: No significant abnormality. OTHER: No other significant abnormality. IMPRESSION: No acute intracranial findings. THIS IS AN ELECTRONICALLY VERIFIED FINAL REPORT 03/23/2025 8:30 PM - Electronically signed by Florentino Cunha M.D. KT: JAD Report ID: [id number] Reading Location: [id number] Janessa LIRIANO IMG CT PROCEDURES Final Resu lt * (ABNORMAL) Urinalysis reflex to microscopic and culture Urine (03/23/2025 8:14 PM CDT) Color, ur Yellow Yellow Comment:Testing performed by : [address] [address] Clarity, ur Clear Clear LIZZY Comment:Testing performed by : [address] [address] Specific gravity, ur 1.013 1.003 - 1.030 LIZZY Comment:Testing performed by : [address] [address] pH, urine 6.0 LIZZY Comment: Interpretive Data U rine pH is affected by diet, medications, systemic acid-base disturbances, and renal tubular function. pH may affect urinary stone formation. For example, urine pH below 6.0 may help reduce the tendency for calcium phosphate stones and pH greater than 6.0 may reduce the tendency for uric acid stone formation. Source: [facility] [place] Current Interpretive Data was last revised on 2017 Testing performed by: [address] [address] Protein, ur ql 2+(A) Negative LIZZY Comment:Testing performed by : [address] [address] Glucose, ur ql 3+(A) Negative LIZZY Comment:Testing performed by : [address] [address] Ketones, ur Negative Negative LIZZY Comment:Testing performed by : [address] [address] Bilirubin, ur Negative Negative LIZZY Comment:Testing performed by : [address] [address] Blood, ur 1+(A) Negative LIZZY Comment:Testing performed by : [address] [address] Urobilinogen, ur <2.0 <2.0 mg/dL LIZZY Comment:Testing performed by : [address] [address] Nitrite, ur Negative Negative LIZZY Comment:Testing performed by : [address] [address] Leukocyte esterase, ur 4+(A) Negative LIZZY Comment:Testing performed by : [address] [address] UA reflex comment Reflex to microscopic UA will be performed. LIZZY Comment:Testing performed by : [address] [address] Urine 03/23/2025 8:14 PM CDT 03/23/2025 8:17 PM CDT us Janessa LIRIANO LAB MICROBIOLOGY - GENERAL O RDERABLES Final Result Performing Organization Address [facility] Co de Phone Number LIZZY [facility] Department [place] [address] * (ABNORMAL) Urinalysis, microscopic only (03/23/2025 8:14 PM CDT) WBC, ur 11-20(A) 0 - 5 /HPF Comment:Testing performed by : [address] [address] RBC, ur 6-10(A) 0 - 2 /HPF LIZZY Comment:Testing performed by : [address] [address] Epithelial cells, squamous, ur 11-20(A) 0 - 5 /HPF LIZZY Comment:Testing performed by : [address] [address] Mucous, ur Present(A) LIZZY Comment:Testing performed by : [address] [address] Culture Reflex Comment Reflex to urine culture will be performed. LIZZY Comment:Testing performed by : [address] [address] Urine 03/23/2025 8:14 PM CDT 03/23/2025 8:17 PM CDT us Janessa LIRIANO LAB URINE ORDERABLES Final R esult Performing Organization Address City/[facility]/ZIP Co de Phone Number ALISIA[address] [place] [address] * Urine culture Urine (03/23/2025 8:14 PM CDT) Report Final Report: Less than 100,000 colonies/mL (clinically insignificant growth based on current clinical standards) Comment:Testing performed by : [facility], [address] [place]., [address] Organism (CLINICALLY INSIGNIFICANT GROWTH [facility] Urine 03/23/2025 8:14 PM CDT 03/23/2025 11:30 PM CDT Narrative [facility] - 03/25/2025 7:38 AM CDT Urine culture reflexed based upon urinalysis results. Testing performed by [facility] ([phone]) Janessa LIRIANO LAB MICROBIOLOGY - GENERAL O RDERABLES Final Result Performing Organization Address [facility] Co de Phone Number ALISIA[address] Department [place] [address] * eGFR (03/23/2025 7:14 PM CDT) eGFR 78 >=60 mL/min/1. 73 m2 Comment: Interpretive Data [...] of Race in Diagnosing Kidney Disease, JASN 202). The CKD-EPI equation should not be used for patients with unstable renal function and has not been validated in children and those over 70. Current interpretive data was last reviewed 2021. Testing performed by: [address] [address] Blood 03/23/2025 7:14 PM CDT 03/23/2025 7:18 PM CDT Gio Alcides Mckeon DO LAB BLOOD ORDERABLES Final Result [facility] [address] [facility] Department [place] [address] * Differential, auto (03/23/2025 7:14 PM CDT) Neutrophil abs 6.23 1.50 - 6.50 K/cumm Comment:Testing performed by : [address] [address] Imm gran abs 0.09 0.00 - 0.10 K/cumm LIZZY Comment:Testing performed by : [address] [address] Lymphocyte abs 1.59 0.80 - 3.30 K/cumm LIZZY Comment:Testing performed by : [address] [address] Monocyte abs 0.75 0.20 - 0.80 K/cumm LIZZY Comment:Testing performed by : [address] [address] Eosinophil abs 0.14 0.00 - 0.50 K/cumm LIZZY Comment:Testing performed by : [address] [address] Basophil abs 0.08 0.00 - 0.10 K/cumm LIZZY Comment:Testing performed by : [address] [address] Neutrophil pct 70.2 % LIZZY Comment: Interpretive Data Percent cell count reference ranges are not reported, since discordance with absolute values may lead to misinterpretation of CBC data. Current Interpretive Data was last revised on 2017. Testing performed by: [address] [address] Imm gran pct 1.0 % [facility] Comment: Interpretive Data Percent cell count reference ranges are not reported, since discordance with absolute values may lead to misinterpretation of CBC data. Current Interpretive Data was last revised on 2017. Testing performed by: [address] [address] Lymphocyte pct 17.9 % [facility] Comment: Interpretive Data Percent cell count reference ranges are not reported, since discordance with absolute values may lead to misinterpretation of CBC data. Current Interpretive Data was last revised on 2017. Testing performed by: [address] [address] Monocyte pct 8.4 % [facility] Comment: Interpretive Data Percent cell count reference ranges are not reported, since discordance with absolute values may lead to misinterpretation of CBC data. Current Interpretive Data was last revised on 2017. Testing performed by: [address] [address] Eosinophil pct 1.6 % [facility] Comment: Interpretive Data Percent cell count reference ranges are not reported, since discordance with absolute values may lead to misinterpretation of CBC data. Current Interpretive Data was last revised on 2017. Testing performed by: [address] [address] Basophil pct 0.9 % [facility] Comment: Interpretive Data Percent cell count reference ranges are not reported, since discordance with absolute values may lead to misinterpretation of CBC data. Current Interpretive Data was last revised on 2017. Testing performed by: [address] [address] Blood 03/23/2025 7:14 PM CDT 03/23/2025 7:18 PM CDT us Gio Mckeon DO LAB BLOOD ORDERABLES Final Result LIZZY HERRERA [address] [facility] Department [place] [address] * Beta-hydroxybutyrate (03/23/2025 7:14 PM CDT) Pathologist [facility] Beta-Hydroxybut yrate 0.2 <=0.5 mmol/L Blood 03/23/2025 7:14 PM CDT 03/24/2025 12:30 AM CDT Kyle Keen Jr., MD LAB BLOOD ORDERABLES F inal Result [facility] [address] [facility] Department [place] [address] * (ABNORMAL) CBC with auto differential (03/23/2025 7:14 PM CDT) [facility] WBC 8.88 3.80 - 9.90 K/cumm Comment:Testing performed by : [address] [address] Hgb 12.0(L) 13.0 - 17.5 g/dL LIZZY Comment:Testing performed by : [address] [address] Hct 34.5(L) 38.9 - 50.3 % LIZZY Comment:Testing performed by : [address] [address] Plt 230 150 - 400 K/cumm LIZZY Comment:Testing performed by : [address] [address] MPV 9.9 9.1 - 12.3 fL LIZZY Comment:Testing performed by : [address] [address] RBC 4.30 4.30 - 5.80 M/cumm LIZZY Comment:Testing performed by : [address] [address] MCV 80.2(L) 81.3 - 96.4 fL LIZZY Comment:Testing performed by : [address] [address] MCH 27.9 27.1 - 33.3 pg LIZZY Comment:Testing performed by : [address] [address] MCHC 34.8 32.3 - 35.7 g/dL LIZZY HERRERA Comment:Testing performed by : [facility], [address] [place] [address]., [address] RDW CV 13.4 11.1 - 14.9 % LIZZY HERRERA Comment:Testing performed by : [address] [address] RDW SD 38.5 35.7 - 48.1 fL LIZZY Comment:Testing performed by : [address] [address] NRBC abs 0.00 0.00 - 0.01 K/cumm LIZZY Comment:Testing performed by : [address] [address] Blood 03/23/2025 7:14 PM CDT 03/23/2025 7:18 PM CDT us Gio Mckeon DO LAB BLOOD ORDERABLES Final Result Performing Organization Address City/[facility]/ZIP Co de Phone Number [address] [employer] [place] [address] * Magnesium (03/23/2025 7:14 PM CDT) [facility] Magnesium 1.8 1.4 - 2.5 mg/dL Comment:Testing performed by : [address] [address] Blood 03/23/2025 7:14 PM CDT 03/23/2025 7:18 PM CDT Janessa LIRIANO LAB BLOOD ORDERABLES Final R esult Performing Organization Address City/[facility]/ZIP Co de Phone Number [address] [address] * (ABNORMAL) Comprehensive metabolic panel (03/23/2025 7:14 PM CDT) Pathologist [facility] Sodium 133(L) 135 - 145 mmol/L Comment:Testing performed by : [address] [address] Potassium, pl 4.7 3.3 - 4.9 mmol/L [facility] Comment: Hemolyzed; Potassium value may be falsely elevated by as much as 1.0 mmol/L. Suggest redraw and reanalysis. Testing performed by: [facility], [address] [place] [address]., [address] Chloride 96(L) 97 - 110 mmol/L [facility] Comment:Testing performed by : [address] [address] CO2 21(L) 22 - 32 mmol/L [facility] Comment:Testing performed by : [address], [place]., [address] Anion gap 16(H) 2 - 15 mmol/L LIZZY Comment:Testing performed by : [address] [address] BUN 17 6 - 25 mg/dL [facility] Comment:Testing performed by : [address] [address] Creatinine 1.03 0.80 - 1.30 mg/dL [facility] Comment:Testing performed by : [address] [address] Glucose 170 70 - 199 mg/dL [facility] Comment: Interpretive Data Fasting glucose >/= [...] was last revised 2022. Testing performed by: [address] [address] Calcium 9.1 8.5 - 10.3 mg/dL [facility] Comment:Testing performed by : [address] [address] Bilirubin, total 0.3 0.1 - 1.2 mg/dL [facility] Comment:Testing performed by : [address] [place]., [address] Protein, pl 6.1(L) 6.5 - 8.5 g/dL LIZZY HERRERA Comment:Testing performed by : [address] [address] Albumin 3.7 3.5 - 5.0 g/dL LIZZY HERRERA Comment:Testing performed by : [address] [address] Alk phos 89 40 - 130 Units/L LIZZY Comment:Testing performed by : [address] [address] ALT 57(H) 7 - 55 Units/L LIZZY Comment:Testing performed by : [address], [address] AST 43 10 - 50 Units/L LIZZY Comment: Hemolyzed; result may be falsely elevated Testing performed by: [address], [address] Blood 03/23/2025 7:14 PM CDT 03/23/2025 7:18 PM CDT us Gio Mckeon DO LAB BLOOD ORDERABLES Final Result Performing Organization Address [facility] Co de Phone Number [facility] [address] [facility] Department [place] [address] * POCT glucose (03/23/2025 7:13 PM CDT) [facility] Signature Glucose, POC 176 70 - 199 mg/dL Comment:Testing performed by : [address] [address] Glucose comment 1 RN/MD Notified LIZZY Comment:Testing performed by : [address] [address] Blood 03/23/2025 7:13 PM CDT 03/23/2025 7:13 PM CDT us Notinfile Unknown LAB POCT ORDERABLES - DEVICE F inal Result Performing Organization Address City/[facility] Co de Phone Number LIZZY HERRERA [address] [facility] Department [place] [address] * (ABNORMAL) Lipid panel (11/13/2024 4:42 AM [...] last revised on 2018. Testing performed by: [address] [address] Triglycerides 168(H) <=149 mg/dL LIZZY Comment: Interpretive [...] last revised on 2018. Testing performed by: [address] [address] HDL 39(L) >=40 mg/dL LIZZY Comment: Interpretive [...] last revised on 2018. Testing performed by: [address] [address] LDL, calculated 66 <=129 mg/dL LIZZY Comment: Interpretive Data Ages [...] last revised on 2024. Testing performed by: [address] [address] Non-HDL Cholesterol 95 mg/dL LIZZY Comment: Interpretive [...] last revised on 2018. Testing performed by: [address] [address] Chol/HDL ratio 3 LIZZY Comment:Testing performed by : [address] [address] Blood 11/13/2024 4:42 AM CDT 11/13/2024 6:06 AM CDT Florentino Montelongo DO LAB BLOOD ORDERABLES Final Resul t ALISIANER MH [address] [facility] Department [place] [address] from Last 3 Months or Most Recently Relevant to Health Maintenance Insurance [facility] MEDICARE O MEDICARE [facility] MEDICARE O MEDICARE MEDICARE Advance Directives For more information, please contact: [phone] Documents on File Type Date Recorded Patient [employer] Operator Expl anation ADVANCE DIRECTIVE 03/29/2025 1:04 PM Nena r of Coagulator[facility] * Full Code (Latest Code Status on File) Date Activated Date Inactivated Comments 03/23/2025 11:39 PM 03/26/2025 7:21 PM * Full Code Date Activated Date Inactivated Comments 11/12/2024 6:54 PM 11/16/2024 6:32 PM * Full Code Date Activated Date Inactivated Comments 07/08/2022 5:19 AM 07/09/2022 10:08 PM Care Teams Adjunct History Instructor Relationship Specialty Start Date End Date Ady Wallis MD [address] [facility] [address] [place] [address] [place] [address] [id number] PCP - General Family Medicine 01/01/25 Unknown, Notinfile 11/12/24 Miscellaneous, Not In File 07/09/22
[2025-05-21 12:54] LABS: Hematocrit 37.6 % (42.0-52.0); Hemoglobin 12.2 g/dL (14.0-18.0); Immature Granulocyte Percent A 0.9 % (0-0.5); Lymphocytes Absolute Auto 1.48 K/mm3 (0.9-3.2); Mean Corpuscular HGB Conc 32.4 g/dl (32-36); Mean Corpuscular Hemoglobin 28.0 pg (26-34); Mean Corpuscular Volume 86.2 fl (80-100); Nucleated Red Blood Cells Absolute Auto 0.000 K/mm3 (0.0-0.012); Nucleated Red Blood Cells Perc 0.0 % (0.0-0.2); Platelet Count Result 289 k/mm3 (150-375); Red Blood Count 4.36 M/mm3 (4.6-6.20); White Blood Count 7.7 K/mm3 (4.5-10.0)
[2025-05-21 13:11] LABS: Alanine Aminotransferase 105 U/L (6-50); Albumin Level 4.4 g/dL (3.5-5.1); Alkaline Phosphatase 94 U/L (38-126); Anion Gap 12 mmol/L (4-12); Aspartate Amino Transferase 83 U/L (17-59); Bilirubin,Total 0.5 mg/dL (0.2-1.3); Blood Urea Nitrogen 21 mg/dL (9-20); Calcium 9.6 mg/dL (8.4-10.2); Carbon Dioxide 24 mmol/L (22-30); Chloride 100 mmol/L (98-107); Estimated Glomerular Filt Rate 60; Glucose 117 mg/dL (65-110); Potassium 5.1 mmol/L (3.4-5.0); Sodium 136 mmol/L (137-145); Total Protein 7.7 g/dL (6.3-8.2)
[2025-05-21 13:53] LABS: Hemoglobin A1C 6.8 % (<5.7)
== END 2025-05-21 09:31 | disposition home or self-care (01) ==
PROVIDERS: PCP Family Medicine; Visit Provider Nurse Practitioner Family
DX: R74.8 Abnormal levels of other serum enzymes (principal); I10 Essential (primary) hypertension; E11.21 Type 2 diabetes mellitus with diabetic nephropathy; Z79.4 Long term (current) use of insulin
CPT/HCPCS: 36415; 80053; 83036; 85025